=== PATIENT | female | born 1930 | race Caucasian/White ===

== ENCOUNTER 2016-05-01 03:07 | Emergency (ER) | payer MEDICARE ==
[~2016-05-01] VITALS: Ht 147.3 cm; Wt 59.9 kg
--- NOTE | 2016-05-01 04:08 | ED GI ---
General Chief Complaint: Abdominal/GI Problems Stated Complaint: CONSTIPATION Nursing Triage Note: reports not having a BM x 1 week Sepsis Screen: No Definite Risk Source of Information: Patient History of Present Illness Time Seen By Provider: 03:45 Initial Comments PT C/O CONSTIPATION X 1 WEEK THINKS NOW SHE HAS A HEMORRHOID, HAVING RECTAL PRESSURE AND PAIN HAS HISTORY OF CONSTIPATION BUT DOES NOT TAKE ANY MEDICATIONS ON ROUTINE BASIS FOR CONSTIPATION NO HISTORY OF OTHER GI PROBLEMS NO SIGNIFICANT ABDOMINAL PAIN NO NAUSEA/VOMITING NO FEVER NO URINARY PROBLEMS EATING AND DRINKING WELL BUT IS AFRAID TO EAT TOO MUCH DUE TO THIS PROBLEM PT STATES SHE TOOK MIRALAX ONCE A DAY FOR A DAY OR TWO--HAS NOT TAKEN ANY IN 3 DAYS TOOK LACTULOSE ONCE A DAY FOR A DAY OR TWO--ALSO NONE FOR A FEW DAYS TRIED A FLEET'S ENEMA X 1 ON THURSDAY OR THURSDAY DRANK A GLASS OF PRUNE JUICE YESTERDAY HAS NOT TAKEN ANYTHING IN 24 HOURS FOR THIS PROBLEM PCP: DR. ARMSTRONG Allergies and Home Medications Allergies Coded Allergies: No Known Drug Allergies (Verified Allergy, Unknown, 02/24/08) Home Medications Alendronate Sodium 70 Mg Tab 70 MG PO Th@06 (Reported) Aspirin 81 Mg Tabec 81 MG PO DAILY (Reported) Calcium Carbonate/Vitamin D3 1 Each Tablet 1 EACH PO BID (Reported) Cyanocobalamin/Fa/Pyridoxine 1 Tab Tablet 1 TAB PO DAILY (Reported) Ezetimibe 10 Mg Tablet 10 MG PO DAILY (Reported) Gemfibrozil 600 Mg Tablet 1 EACH PO BID (Reported) Levothyroxine Sodium 75 Mcg Tablet 75 MCG PO DAILY (Reported) [place]-3 Fatty Acids/Fish Oil 1 Each Capsule 1 EACH PO BID (Reported) Review of Systems Constitutional: no symptoms reported Respiratory: No Symptoms Reported Cardiovascular: No Symptoms Reported Gastrointestinal: See HPIDenies Abdominal Pain, ConstipatedDenies Diarrhea, Denies Nausea, Denies Poor Appetite, Denies Poor Fluid Intake, Denies Rectal Bleeding, Denies Vomiting Genitourinary: No Symptoms Reported Musculoskeletal: no symptoms reported Skin: no symptoms reported Psychiatric/Neurological: No Symptoms Reported Endocrine: No Symptoms Reported Hematologic/Lymphatic: No Symptoms Reported Past Pnrvkil-Rnvner-Mbopds Hx Patient Social History Alcohol Use: Denies Use Recreational Drug Use: No Smoking Status: Never a Smoker 2nd Hand Smoke Exposure: No Recent Foreign Travel: No Contact w/Someone Who Travel: No Recent Infectious Disease Expo: No Recent Hopitalizations: Yes Surgeries HX Surgeries: Yes (COLONOSCOPY;BILATERAL CARPAL TUNNEL;HERNIA REPAIR; BLADDER SLING; TOE SURGERY; RIGHT CATARACT; LEFT KNEE ; VAGINAL SURGERY; SKIN LESION REMOVALS) Surgeries: Bladder Surgery, Gallbladder, Hysterectomy, Joint Replacement, Orthopedic, Tonsillectomy Respiratory Hx Respiratory Disorders: No Cardiovascular Hx Cardiac Disorders: Yes Cardiac Disorders: Hypertension Neurological Hx Neurological Disorders: No Reproductive System Hx Reproductive Disorders: No Sexually Transmitted Disease: No Genitourinary Hx Genitourinary Disorders: Yes (INCONTINENCE--S/P BLADDER SLING. ) Gastrointestinal Hx Gastrointestinal Disorders: Yes Gastrointestinal Disorders: Chronic Constipation Musculoskeletal Hx Musculoskeletal Disorders: Yes Musculoskeletal Disorders: Arthritis Endocrine Hx Endocrine Disorders: Yes Endocrine Disorders: Hypothyroidsim HEENT HX ENT Disorders: Yes HEENT Disorders: Cataract Cancer Hx Cancer: No Psychosocial Hx Psychiatric Problems: No Integumentary HX Skin/Integumentary Disorder: No Blood Transfusions Hx Blood Disorders: No Physical Exam Vital Signs VS - Last 72 Hours, by Label 05/01/16 03:24 Temp 98.2 Pulse 94 Resp 18 B/P 164/84 Pulse Ox 95 Capillary Refill : Less Than 3 Seconds General Appearance: WD/WN no apparent distress other (SMILING, DOES NOT APPEAR TO BE IN ANY DISCOMFORT) Respiratory: normal breath sounds no respiratory distress no accessory muscle use Cardiovascular: regular rate, rhythm no murmur Gastrointestinal: normal bowel sounds non tender soft no organomegaly no pulsatile massNo distended, No hernia, No mass Rectal: normal rectal tone hemorrhoids (MILDLY INFLAMED EXTERNAL HEMORRHOIDS, FEW INTERNAL HEMORRHOIDS. NO RECTAL MASSES. NO STOOL IN RECTUM. NO SIGNIFICANT TENDERNESS. ) Back: no CVA tenderness other (KYPHOSIS) Neurologic/Psychiatric: rrts II-XII nml as tested no motor/sensory deficits alert normal mood/affect oriented x 3 Skin: normal color warm/dry Progress/Results/Core Measures Results/Orders My Orders Orders-MAGUI MONAHAN DO Abdomen, Flat & Upright/Decub (05/01/16 03:44) Magnesium Citrate Oral Soln (Citrate Of (05/01/16 04:45) Medications Given in ED Current Medications Medications Dose Ordered Sig/Anival Route Start Time Stop Time Status Last Admin Dose Admin Magnesium Citrate 300 ml ONCE ONCE PO 05/01/16 04:45 05/01/16 04:46 DC 05/01/16 04:47 300 ML Vital Signs/I&O Vital Sign - Last 12Hours 05/01/16 03:24 Temp 98.2 Pulse 94 Resp 18 B/P 164/84 Pulse Ox 95 Blood Pressure Mean: 110 Progress Note : Progress Note WILL SEND PT TO FLOOR FOR ENEMAS Diagnostic Imaging Comments ABDOMINAL XRAYS--CONSTIPATION, NON-SPECIFIC BOWEL GAS. GAS PRESENT IN RECTUM. NO ACUTE PROCESS. PENDING RADIOLOGIST REVIEW. Reviewed: Reviewed by Me Departure Impression Impression: Primary Impression: Constipation Disposition: HOME, SELF-CARE Condition: Stable Departure-Patient Inst. Referrals: TORIE ARMSTRONG DO (PCP) Primary Care Physician Patient Instructions: Constipation, Adult (DC) Add. Discharge Instructions: LOTS OF CLEAR LIQUIDS INCREASE YOUR FIBER INTAKE TAKE MIRALAX DAILY FOLLOW UP WITH DR. ARMSTRONG IF SYMPTOMS PERSIST All discharge instructions reviewed with patient and/or family. Voiced understanding. MAGUI MONAHAN DO May 01, 2016 04:08
[2016-05-01] MEDS ORDERED: MAGNESIUM CITRATE 300 ML BTL PO ONE (04:45)
[2016-05-01 05:39] VITALS: BP 154/80
--- NOTE | 2016-05-01 07:10 | Diagnostic Imaging Report ---
INDICATION: Constipation. Supine and upright views of the abdomen are obtained. FINDINGS: There is moderate amount of stool throughout the colon. Mild gaseous distention is seen in several small bowel loops. There is no evidence of free intraperitoneal gas or pneumatosis. There is no evidence of bowel transition point to indicate a site of obstruction. No pathologic abdominal calcification is appreciated. IMPRESSION: Findings are consistent with constipation. No bowel obstruction is identified. Dictated by: Dictated on workstation # [id number]
== END 2016-05-01 05:48 | disposition home or self-care (01) ==
LOC: EDUNIT# 03:07 → ER 03:12
DX: K59.00 Constipation, unspecified (principal); I10 Essential (primary) hypertension; Z79.82 Long term (current) use of aspirin; Z79.899 Other long term (current) drug therapy
CPT/HCPCS: 74020; 99212; 99282

== ENCOUNTER → 2016-05-01 | Outpatient (CLI) | payer MEDICARE ==
[~2016-05-01] VITALS: Ht 147.3 cm; Wt 62.3 kg
[~2016-05-01] MED LIST: ALN70T PO; ASP81TEC PO; CALC-78 PO; CYAN1TAB13 PO; EZET10TA5 PO; FISH OIL 1,2001 EAC1 PO; GEMF600T3 PO; LEVO75TA58 PO
[2016-05-01 08:44] VITALS: BP 130/58
--- NOTE | 2016-05-12 10:47 | Physician Query-Final Dx ---
REYNA SEQUEIRA 05/12/16 1047: Clinic Account Progress/Dx Physician Query: Please give a diagnosis for the soap suds enema treatment thank you Date of Service May 01, 2016 at 05:43 MAGUI MONAHAN DO 05/13/16 0553: Clinic Account Progress/Dx DIAGNOSIS: Diagnosis constipation REYNA SEQUEIRA May 12, 2016 10:47 MAGUI MONAHAN DO May 13, 2016 05:53
== END ==
LOC: 4THo 05:43
PROVIDERS: ATTEND Emergency Medicine
DX: K59.00 Constipation, unspecified (principal)
CPT/HCPCS: 99212

== ENCOUNTER → 2016-06-19 | Outpatient (CLI) | payer MEDICARE ==
--- NOTE | 2016-06-19 17:58 | Diagnostic Imaging Report ---
PROCEDURE: US Carotid Duplex Bilateral. TECHNIQUE: Multiple real-time grayscale images were obtained over the carotid arteries in various projections bilaterally. Additional duplex Doppler and color Doppler images were also obtained. INDICATION: Carotid stenosis. FINDINGS: Grayscale images demonstrate calcified plaque at the carotid bifurcation bilaterally. Color Doppler demonstrates patency of the common, internal and external carotid arteries on both sides. There is antegrade flow seen in the vertebral arteries. Peak systolic velocities on the right side are 135 cm/s, 83 cm/s and 86 cm/s and on the left 96 cm/s, 104 cm/s and 69 cm/s. ICA/CCA ratios are up to 2.2 on the right side and up to 1.1 on the left. IMPRESSION: There is mildly increased flow velocity in the proximal right ICA with suggestion of underlying stenosis in the range of 50-69%. Estimated underlying stenosis in the left ICA is less than 50%. Dictated by: Dictated on workstation # [id number]
--- NOTE | 2016-06-20 08:21 | Diagnostic Imaging Report ---
Bilateral screening mammogram The current study was also evaluated with a Computer Aided Detection (CAD) system. Indication: Screening. No current complaints stated on the questionnaire. COMPARISON: 06/18/15. FINDINGS: The breasts are composed of scattered fibroglandular densities. There are occasional punctate calcifications seen. Allowing for technique and positional differences, no suspicious change is seen. IMPRESSION: No significant change. ACR BI-RADS Category 2: Benign findings. Result letter will be mailed to the patient. Note: At least 10% of breast cancer is not imaged by mammography. Dictated by: Dictated on workstation # [id number]
== END ==
LOC: RAD 13:07
PROVIDERS: ATTEND Internal Medicine
DX: Z12.31 Encounter for screening mammogram for malignant neoplasm of breast (principal); I65.23 Occlusion and stenosis of bilateral carotid arteries
CPT/HCPCS: 77067; 93880

== ENCOUNTER → 2016-12-30 | Outpatient (CLI) | payer MEDICARE ==
--- NOTE | 2016-12-30 19:13 | Diagnostic Imaging Report ---
PROCEDURE: US Carotid Duplex Bilateral. TECHNIQUE: Multiple real-time grayscale images were obtained over the carotid arteries in various projections bilaterally. Additional duplex Doppler and color Doppler images were also obtained. INDICATION: Carotid artery stenosis. FINDINGS: Grayscale images demonstrate multifocal calcified plaque in the common and internal carotid arteries bilaterally. Color flow demonstrates patency of the common, internal and external carotid arteries. There is shadowing from a calcified plaque limiting evaluation of a very short segment within the proximal right ICA. There is antegrade flow in the vertebral arteries bilaterally. Peak systolic velocities in the right ICA are 104, 97, and 100 cm/s from proximal to distal and on the left side 70, 86, and 168 cm/s. ICA/CCA ratios are up to 1.5 on the right side and 2.2 on the left side. IMPRESSION: There is multifocal calcified plaque seen in the common and internal carotid arteries on both sides more prominent on the left. There is moderate increased velocity in the distal left internal carotid artery. This is in favor of underlying stenosis in the range of 50-69% on the left. The right side demonstrates no significantly increased velocities with estimated underlying stenosis less than 50%. Dictated by: Dictated on workstation # [id number]
== END ==
LOC: RAD 13:31
PROVIDERS: ATTEND Internal Medicine
DX: I65.23 Occlusion and stenosis of bilateral carotid arteries (principal)
CPT/HCPCS: 93880

== ENCOUNTER 2017-02-28 03:17 | Emergency (ER) | payer MEDICARE ==
[~2017-02-28] VITALS: Ht 147.3 cm; Wt 57.2 kg
--- OUTSIDE RECORDS SUMMARY | 2017-02-28 03:25 | XMS REPORT | Clinical Summary ---
Author Author User, JEFFERSON Organization [facility] [place] Address Unknown Phone Unavailable Allergies, Adverse Reactions, Alerts Allergy Name Reaction Description Start Date Severity Status Provider LIPITOR myalgias Critical Active Cassidy Del Rosario LOPID elevated liver Critical Active Cassidy Del Rosario ZETIA myalgias Critical Active Cassidy Del Rosario Conditions or Problems Problem Name Problem Code Onset Date Status Entry Date Provider Comment Standard Description Annotate HYPERCHOLESTEROLEMIA 272.0 Active Cassidy Del Rosario Pure hypercholesterolemia HYPERTRIGLYCERIDEMIA 272.1 Active Cassidy Del Rosario Pure hyperglyceridemia ACTINIC KERATOSIS 702.0 Resolved Cassidy Del Rosario Actinic keratosis nose OSTEOARTHRITIS 715.90 Active Cassidy Del Rosario Osteoarthrosis, unspecified whether generalized or localized, involving unspecified site OSTEOPOROSIS, GENERALIZED 733.00 Resolved Cassidy Del Rosario Osteoporosis, unspecified HYPOTHYROIDISM 244.9 Active Cassidy Del Rosario Unspecified hypothyroidism CONSTIPATION, CHRONIC 564.09 Resolved Cassidy Del Rosario Other constipation SINUSITIS, ACUTE 461.9 Resolved Cassidy Del Rosario Acute sinusitis, unspecified DERMATITIS 692.9 Resolved Cassidy Del Rosario Contact dermatitis and other eczema, unspecified cause nose and upper lip SEBORRHEIC KERATOSIS, INFLAMED 702.11 Resolved Cassidy Del Rosario Inflamed seborrheic keratosis HYPERGLYCEMIA, MILD 790.6 Resolved Cassidy Del Rosario Other abnormal blood chemistry INTERTRIGO, CANDIDAL 695.89 Resolved Cassidy Del Rosario Other specified erythematous conditions FREQUENCY, URINARY 788.41 Refinement Cassidy Del Rosario Urinary frequency UTI 599.0 Resolved Cassidy Del Rosario Urinary tract infection, site not specified SCREENING MAMMOGRAM NEC V76.12 Resolved Cassidy Del Rosario Other screening mammogram SINUS CONGESTION, CHRONIC 478.1 Resolved Cassidy Del Rosario Other diseases of nasal cavity and sinuses SINUSITIS 473.9 Resolved Cassidy Del Rosario Unspecified sinusitis (chronic) HYPERGLYCEMIA, MILD 790.6 Resolved Cassidy Del Rosario Other abnormal blood chemistry VACCINE AGAINST STREPTOCOCCUS PNEUMONIAE V03.82 Resolved Cassidy Del Rosario Need for prophylactic vaccination against Streptococcus pneumoniae [pneumococcus] BICEPS TENDON RUPTURE, RIGHT 727.62 Resolved Cassidy Del Rosario Nontraumatic rupture of tendons of biceps (long head) VACCINE AGAINST TETANUS-DIPHTHERIA [TD][DT] V06.5 Resolved 07/27 Cassidy Del Rosario Need for prophylactic vaccination and inoculation against Tetanus-diptheria [Td] [DT] DIABETES MELLITUS, NONINSULIN DEPENDENT (NIDDM) 250.00 Active Cassidy Del Rosario Diabetes mellitus without mention of complication, type II or unspecified type, not stated as uncontrolled URI 465.9 Resolved Cassidy Del Rosario Acute upper respiratory infections of unspecified site OSTEOPOROSIS NEC 733.09 Active Cassidy Del Rosario Other osteoporosis BOWEL OBSTRUCTION 560.9 Resolved Cassidy Del Rosario Unspecified intestinal obstruction CAROTID ARTERY STENOSIS, BILATERAL 433.10 Resolved Cassidy Del Rosario Occlusion and stenosis of carotid artery, without mention of cerebral infarction HYPERTENSION 401.1 Active Cassidy Del Rosario Benign essential hypertension ABDOMINAL PAIN, ACUTE 789.00 Resolved Cassidy Del Rosario Abdominal pain, unspecified site TRANSAMINASES, SERUM, ELEVATED 790.4 Resolved Cassidy Del Rosario Nonspecific elevation of levels of transaminase or lactic acid dehydrogenase [LDH] BILIRUBINURIA 791.4 Resolved Cassidy Del Rosario Biliuria GAMMA GLUTAMYL TRANSFERASE, SERUM, ELEVATED 790.5 Resolved 07/27 Cassidy Del Rosario Other nonspecific abnormal serum enzyme levels ANKLE PAIN, RIGHT 719.47 Resolved Cassidy Del Rosario Pain in joint involving ankle and foot FREQUENCY, URINARY 788.41 Resolved Cassidy Del Rosario Urinary frequency KNEE PAIN 719.46 Active Cassidy Del Rosario Pain in joint involving lower leg EDEMA LEG 782.3 Resolved Cassidy Del Rosario Edema NEOPLASM, SKIN, UNCERTAIN BEHAVIOR 238.2 Resolved Cassidy Del Rosario Neoplasm of uncertain behavior of skin TORTICOLLIS 723.5 Resolved Cassidy Del Rosario Torticollis, unspecified CANDIDIASIS OF UNSPECIFIED SITE 112.9 Resolved Cassidy Del Rosario Candidiasis of unspecified site CARPAL TUNNEL SYNDROME, BILATERAL 354.0 Active Cassidy Del Rosario Carpal tunnel syndrome Medication List Medication Instructions Start Date Stop Date Generic Name NDC Status Provider Patient Instruction CHRISTINA 180 MG TABS 1 PO BID FEXOFENADINE HCL No Longer Active Cassidy Del Rosario DIFLUCAN 100 MG TAB 1 PO daily FLUCONAZOLE 44953918002 No Longer Active Cassidy Del Rosario NYSTATIN 728410 UNIT/GM POWD apply over the Nystatin cream BID NYSTATIN 28145690972 No Longer Active Cassidywendy Del Rosario NYSTATIN 036086 UNIT/GM CREA apply to affected areas BID for 7 days NYSTATIN 42862006305 No Longer Active Cassidy Del Rosario ATROVENT 0.06 % SOLN 2 puffs each nostril QID PRN IPRATROPIUM BROMIDE 92296107481 No Longer Active Jennifer Crawford FISH OIL 1000 MG CAPS 1 PO daily OMEGA-3 FATTY ACIDS 79060208352 Active Cassidywendy Del Rosario CONSTULOSE 10 GM/15ML SOLN 10cc PO TID prn constipation LACTULOSE 79385194861 No Longer Active Cassidy Del Rosario PYRIDIUM 200 MG TAB 1 PO TID prn urinary urgency PHENAZOPYRIDINE HCL 12314304461 No Longer Active Jennifer Crawford LEVAQUIN 500 MG TAB 1 PO QD LEVOFLOXACIN 92105666837 No Longer Active Jennifer Crawford ZETIA 10 MG TABS 1 PO daily for cholesterol. EZETIMIBE 10897535350 No Longer Active Cassidy Del Rosario PYRIDIUM 200 MG TAB 1 PO TID prn urinary urgency PHENAZOPYRIDINE HCL 88130475045 No Longer Active Jennifer Crawford LEVAQUIN 500 MG TAB 1 PO QD x 5 days LEVOFLOXACIN 14054768692 No Longer Active Jennifer Crawford FOSAMAX 70 MG TABS 1 PO daily ALENDRONATE SODIUM 63626960906 No Longer Active Cassidy Del Rosario GEMFIBROZIL 600 MG TABS 1 po bid GEMFIBROZIL 94470371516 No Longer Active Jennifer Crawford CARAFATE 1 GM TABS 1 PO 30 minutes before meals and at bedtime SUCRALFATE 38140476770 No Longer Active Cassidy Del Rosario OMEPRAZOLE 20 MG CPDR 1 PO BID OMEPRAZOLE 57519077474 No Longer Active Cassidy Candie Del Rosario COZAAR 50 MG TAB 1 PO daily LOSARTAN POTASSIUM 70931953869 Active Jennifer Crawford NORVASC 5 MG TAB 1 PO QD AMLODIPINE BESYLATE 33637979086 Active Jennifer Crawford CYCLOBENZAPRINE HCL 5 MG TABS 1 po BID PRN CYCLOBENZAPRINE HCL 01700399373 No Longer Active Cassidy Del Rosario FISH OIL CONCENTRATE 1000 MG CAPS OMEGA-3 FATTY ACIDS 03769550000 No Longer Active Cassidywendy Del Rosario PYRIDIUM 200 MG TAB 1 PO TID prn urinary urgency PHENAZOPYRIDINE HCL 50535195437 No Longer Active Jennifer Crawford CIPRO 250 MG TABS 1 PO BID CIPROFLOXACIN HCL 60727476052 No Longer Active Jennifer Crawford KENALOG 0.1 % CREA Apply to affected area BID for 10 days and keep covered TRIAMCINOLONE ACETONIDE 04334627284 No Longer Active Cassidywendy Del Rosario CHRISTINA 180 MG TABS 1 PO QD FEXOFENADINE HCL 29178368572 No Longer Active Cassidywendy Del Rosario CALTRATE 600 PLUS-VIT D 600-200 MG-IU TABS 1 PO BID CALCIUM-VITAMIN D 59871298510 Active Cassidywendy Del Rosario ZOSTAVAX 06329 UNT/0.65ML SOLR 1 injection once ZOSTER VACCINE LIVE 65943852824 No Longer Active Cassidywendy Del Rosario BIAXIN XL PAC 500 MG TB24 2 pills at same time daily for 7 days CLARITHROMYCIN 99392144241 No Longer Active Cassidywendy Del Rosario AMOXICILLIN 500 MG CAP 1 PO TID AMOXICILLIN 78573473911 No Longer Active Cassidy Del Rosario PYRIDIUM 200 MG TABS I PO TID for 2 days PHENAZOPYRIDINE HCL 00068773181 No Longer Active Cassidy BRAVO NASAL SPRAY (DEXAMETHASONE, GENTAMICIN, SALINE) 2 puffs each nostril TID DR. BRAVO NASAL SPRAY (DEXAMETHASONE, GENTAMICIN, SALINE) No Longer Active Cassidy Del Rosario AUGMENTIN 500-125 MG TAB 1 PO BID AMOXICILLIN-POT CLAVULANATE 33052744199 No Longer Active Cassidy Del Rosario CIPRO 250 MG TABS 1 po BID x 7 days CIPROFLOXACIN HCL 33982120898 No Longer Active Jennifer Crawford MICONAZOLE NITRATE POWD apply to affected areas TID for 7 days MICONAZOLE NITRATE 50531555204 No Longer Active Cassidy Del Rosario NYSTATIN 948743 UNIT/GM CREA apply to affected areas BID for 7 days NYSTATIN 08118369050 No Longer Active Cassidy Del Rosario ZITHROMAX Z-KOJO 250 MG TABS as directed AZITHROMYCIN 16000333400 No Longer Active Cassidy BRAVO NASAL SPRAY (DEXAMETHASONE, GENTAMICIN, SALINE) 2 puffs each nostril BID DR. BRAVO NASAL SPRAY (DEXAMETHASONE, GENTAMICIN, SALINE) No Longer Active Cassidy Del Rosario CHLORPHENIRAMINE MALEATE 4 MG TABS 1 PO Q6hrs prn for cold 03/25 CHLORPHENIRAMINE MALEATE 32429666663 No Longer Active Desmond Hackett FOLTX 2.5-25-2 MG TABS 1 PO QD FOLIC ACID-VIT B6-VIT B12 70767037754 Active Jennifer Crawford CALCIUM 500 MG TABS 1 PO BID CALCIUM 26682696010 No Longer Active Cassidy Del Rosario FULTEX 1 PO QD FULTEX No Longer Active Cassidy Del Rosario [id number] 0.35-17979-8.1 OINT Apply to affected areas BID for 10 days TUEUJYSW-[id number] 46585981269 No Longer Active Cassidy Del Rosario FOSAMAX 70 MG TABS 1 tab 1x wkly ALENDRONATE SODIUM 47509622206 No Longer Active Cassidy Del Rosario STOOL SOFTENER 100 MG CAPS prn DOCUSATE SODIUM 17439711736 No Longer Active Cassidy MATHIS'Steven NASAL SPRAY (DEXAMETHASONE, GENTAMICIN, SALINE) 2 puffs TID 05/13 DR. MATHIS'Steven NASAL SPRAY (DEXAMETHASONE, GENTAMICIN, SALINE) No Longer Active Cassidy Del Rosario ZITHROMAX Z-KOJO 250 MG TABS as directed AZITHROMYCIN 31234229402 No Longer Active Cassidy Del Rosario ZITHROMAX Z-KOJO 250 MG TABS 2 the first day, then 1 x 4 days 2003 AZITHROMYCIN 53598401142 No Longer Active Cassidy Del Rosario AMOS LOW STRENGTH 81 MG TBEC 1 po daily ASPIRIN 51472112897 Active Cassidy Del Rosario LEVOXYL 75 MCG TABS 1 po daily LEVOTHYROXINE SODIUM 19849344945 Active Ghanshyam Taylor Immunizations Vaccine Administration Date Value Standard Description Influenza vaccine given Done influenza virus vaccine, unspecified formulation Influenza vaccine given done influenza virus vaccine, unspecified formulation Influenza vaccine given Done influenza virus vaccine, unspecified formulation pneumococcal immunization administered 2nd dose completed pneumococcal polysaccharide vaccine, 23 valent dT (Diphtheria and Tetanus) booster given Dr. Del Rosario Td(adult) unspecified formulation Comvax, combined Hemophilus influenza B and Hepatitis B virus vaccine Dash's Haemophilus influenzae type b conjugate and Hepatitis B vaccine Comvax, combined Hemophilus influenza B and Hepatitis B virus vaccine Dillons administered Haemophilus influenzae type b conjugate and Hepatitis B vaccine Vital Signs Date Name Value Unit Range Description blood pressure, diastolic - 8462-4 60 mm[Hg] BP curry blood pressure, systolic - 8480-6 140 mm[Hg] BP sys pulse rate E&M - 8867-4 66 /min Heart rate respiratory rate E&M - 9279-1 14 /min Resp rate weight E&M - 3141-9 131 [lb_av] Weight Measured blood pressure, diastolic - 8462-4 72 mm[Hg] BP curry blood pressure, systolic - 8480-6 138 mm[Hg] BP sys pulse rate E&M - 8867-4 84 /min Heart rate respiratory rate E&M - 9279-1 14 /min Resp rate weight E&M - 3141-9 130 [lb_av] Weight Measured blood pressure, diastolic - 8462-4 62 mm[Hg] BP curry blood pressure, systolic - 8480-6 138 mm[Hg] BP sys pulse rate E&M - 8867-4 80 /min Heart rate respiratory rate E&M - 9279-1 14 /min Resp rate weight E&M - 3141-9 127 [lb_av] Weight Measured blood pressure, diastolic - 8462-4 74 mm[Hg] BP curry blood pressure, systolic - 8480-6 136 mm[Hg] BP sys pulse rate E&M - 8867-4 88 /min Heart rate respiratory rate E&M - 9279-1 14 /min Resp rate temperature E&M 98.6 [degF] Body temperature weight E&M - 3141-9 130 [lb_av] Weight Measured blood pressure, diastolic - 8462-4 62 mm[Hg] BP curry blood pressure, systolic - 8480-6 134 mm[Hg] BP sys pulse rate E&M - 8867-4 68 /min Heart rate respiratory rate E&M - 9279-1 14 /min Resp rate weight E&M - 3141-9 129 [lb_av] Weight Measured Diagnostic Results Date Name Value Unit Range Description Clinical Lists Update: CMP,FLP,TSH,Free T4,HgA1c - Chemistry Estimated Glomerular Filtration Rate (calc) 65 mL/min/1.73m2 albumin, serum 4.0 g/dL cholesterol/HDL ratio, serum, percent 4.9 anion gap, serum 9 sodium, serum 137 mmol/L triglyceride, serum, fasting 122 mg/dL bilirubin, serum, total 0.8 mg/dL alanine aminotransferase (SGPT), serum 18 U/L aspartate aminotransferase (SGOT), serum 18 U/L protein, total, serum 6.9 g/dL potassium, serum 4.1 mmol/L LDL cholesterol, serum 212 mg/dL thyroid stimulating hormone, serum 2.45 u[iU]/mL hemoglobin A1C, blood, as % of total hemoglobin 5.8 % HDL cholesterol, serum 60.0 mg/dL thyroxine, serum, free 0.89 ng/dL creatinine, serum 0.9 mg/dL carbon dioxide, venous blood 29.0 mmol/L cholesterol, serum 296 mg/dL chloride, serum 103 mmol/L calcium, serum 9.2 mg/dL urea nitrogen, blood 23 mg/dL alkaline phosphatase, serum 57 U/L glucose, plasma fasting 100 mg/dL Clinical Lists Update: CMP,FLP,TSH,Free T4,HgA1c,Microalbumin - Chemistry Estimated Glomerular Filtration Rate (calc) 81 mL/min/1.73m2 glucose, plasma fasting 90 mg/dL cholesterol/HDL ratio, serum, percent 4.6 anion gap, serum 10 sodium, serum 141 mmol/L triglyceride, serum, fasting 104 mg/dL bilirubin, serum, total 0.9 mg/dL alanine aminotransferase (SGPT), serum 18 U/L aspartate aminotransferase (SGOT), serum 18 U/L protein, total, serum 6.3 g/dL potassium, serum 4.2 mmol/L LDL cholesterol, serum 188 mg/dL thyroid stimulating hormone, serum 0.83 u[iU]/mL hemoglobin A1C, blood, as % of total hemoglobin 5.9 % HDL cholesterol, serum 58.0 mg/dL thyroxine, serum, free 0.97 ng/dL creatinine, serum 0.7 mg/dL carbon dioxide, venous blood 27.0 mmol/L cholesterol, serum 267 mg/dL chloride, serum 108 mmol/L calcium, serum 8.8 mg/dL urea nitrogen, blood 16 mg/dL alkaline phosphatase, serum 46 U/L albumin, serum 3.8 g/dL Clinical Lists Update: CMP,FLP,TSH,Free T4,HgA1c,Microalbumin - Urinalysis microalbumin, urine, semiquantitative 0.6 mg/dL Office Visit: Dr Del Rosario's Check Up: Established Patient Visit - Chemistry anion gap, serum 12 sodium, serum 139 mmol/L bilirubin, serum, total 0.7 mg/dL alanine aminotransferase (SGPT), serum 18 U/L aspartate aminotransferase (SGOT), serum 17 U/L protein, total, serum 6.2 g/dL potassium, serum 3.7 mmol/L creatinine, serum 0.7 mg/dL carbon dioxide, venous blood 28.0 mmol/L chloride, serum 103 mmol/L calcium, serum 9.0 mg/dL urea nitrogen, blood 17 mg/dL alkaline phosphatase, serum 45 U/L albumin, serum 3.6 g/dL Estimated Glomerular Filtration Rate (calc) 80 mL/min/1.73m2 glucose, plasma fasting 162 mg/dL Office Visit: Dr Del Rosario's Check Up: Established Patient Visit - Hematology mean corpuscular volume, RBC 96 fL leukocyte count, blood 8.0 10*3/mm3 erythrocyte (RBC) count 3.90 10*6/mm3 platelet count 203 10*3/mm3 hemoglobin, blood 11.9 g/dL hematocrit, blood 37 % erythrocyte sedimentation rate 58 mm/h red blood cell distribution width 13.8 % Encounters Code Encounter Date Provider Facility CPT-61266 Ofc Vst, Est Level IV 13:31:32 [employer] Cassidy Del Rosario DO, FACP CPT-52028 Ofc Vst, Est Level III 12:51:00 CDT Cassidy Del Rosario DO, FACP CPT-21700 Ofc Vst, Est Level III 17:19:08 CDT Cassidy Del Rosario DO, FACP CPT-79962 Ofc Vst, Est Level III 10:22:49 CDT Cassidy Del Rosario DO, FACP CPT-96566 Ofc Vst, Est Level III 19:43:57 [employer] Cassidy Del Rosario DO, FACP CPT-43744 Ofc Vst, Est Level III 14:03:12 [employer] Cassidy Del Rosario DO, FACP CPT-90426 Ofc Vst, Est Level IV 13:10:01 [employer] Cassidy Harris Carin, DO, FACP CPT-66461 Ofc Vst, Est Level III 09:21:13 [employer] Cassidy Harris Carin, DO, FACP CPT-96651 Ofc Vst, Est Level IV 10:39:52 CDT Cassidy Candie Harris Carin, DO, FACP CPT-36754 Ofc Vst, Est Level III 15:20:46 CDT Cassidy Candie Harris Carin, DO, FACP CPT-05954 Ofc Vst, Est Level III 11:02:59 CDT Cassidy Candie Harris Carin, DO, FACP CPT-22106 Ofc Vst, Est Level IV 10:39:40 CDT Cassidy Candie Harris Carin, DO, FACP CPT-61425 Ofc Vst, Est Level IV 10:37:24 CDT Cassidywendy Harris Carin, DO, FACP CPT-58233 Ofc Vst, Est Level IV 10:32:51 CDT Cassidywendy Harris Carin, DO, FACP CPT-32555 Ofc Vst, Est Level IV 12:53:45 CDT Cassidywendy Harris Carin, DO, FACP CPT-89030 Ofc Vst, Est Level V 15:47:50 CDT Cassidywendy Del Rosario [facility] CPT-44689 Ofc Vst, Est Level IV 09:46:59 [employer] Cassidy Candie Harris Carin, DO, FACP CPT-21351 Ofc Vst, Est Level IV 11:28:13 CDT Cassidy Candie Harris Carin, DO, FACP CPT-00523 Ofc Vst, Est Level IV 09:26:22 [employer] Cassidy Candie Harris Carin, DO, FACP CPT-96772 Ofc Vst, Est Level IV 09:58:11 CDT Cassidy Candie Carin Cassidy Steven Carin, DO, FACP CPT-94982 Ofc Vst, Est Level IV 10:04:29 CDT Cassidy Candie Carin Benjamin Steven Carin, DO, FACP CPT-58788 Ofc Vst, Est Level III 17:37:38 [employer] Cassidywendy Schreiber Del Rosario Cassidy Steven Carin, DO, FACP CPT-44408 Ofc Vst, Est Level IV 10:00:32 [employer] Cassidy Candie Carin Del [place], DO, FACP CPT-75078 Ofc Vst, Est Level III 16:35:26 CDT Cassidywendy [place] Carin Del Rosario, DO, FACP CPT-02806 Ofc Vst, Est Level IV 09:32:36 CDT Cassidy Candie Carin Benjamin Steven Carin, DO, FACP CPT-71054 Ofc Vst, Est Level IV 10:53:32 CDT Cassidy Candie Carin Del [place], DO, FACP CPT-75559 Ofc Vst, Est Level IV 10:01:21 CDT Cassidy Del Rosario [facility] [place] CPT-12218 Ofc Vst, Est Level IV 11:19:41 CDT Cassidy Del Rosario [facility] [place] CPT-01479 Ofc Vst, Est Level IV 14:42:04 [employer] Cassidy Del Rosario [facility] [place] CPT-43621 Ofc Vst, Est Level III 11:37:20 CDT Cassidy Del Rosario [facility] [place] CPT-89598 Ofc Vst, Est Level III 09:49:36 [employer] Cassidy Del Rosario [facility] [place] CPT-53440 Ofc Vst, Est Level IV 09:45:40 [employer] Cassidy Del Rosario [facility] [place] CPT-79537 Ofc Vst, Est Level IV 14:04:02 CDT [facility] Canide Prabhakarner [facility] [place] CPT-08180 Ofc Vst, Est Level III 17:26:04 [employer] Cassidy Candie Prabhakarner [facility] [place] CPT-84755 Ofc Vst, Est Level IV 13:17:46 [employer] Cassidy Candie Prabhakarner [facility] [place] CPT-20992 Ofc Vst, Est Level III 12:34:19 CDT [facility] Candie Prabhakarner [facility] [place] CPT-44166 Ofc Vst, Est Level III 13:27:53 CDT [facility] Candie Del Rosario [facility] [place] Procedures Code Procedure Name Date Entry Date Standard Description CPT-G0439 Medicare Annual Wellness Visit 21:16:15 CDT CPT-G8443 E-Prescribing Medication Sent 19:43:57 [employer] CPT-G8445 E-Prescribing Not sent due to no medication given 12:16: 14 CDT CPT-G0439 Medicare Annual Wellness Visit 12:16:14 CDT CPT-G8445 E-Prescribing Not sent due to no medication given 14:03: 12 [employer] CPT-G8445 E-Prescribing Not sent due to no medication given 13:10: 01 [employer] CPT-G8443 E-Prescribing Medication Sent 09:21:13 [employer] CPT-24425 Tetanus vaccine, adsorbed, intramuscular 10:53:32 CDT CPT-75061 Injection, Pneumovax 10:53:32 CDT CPT-05589 Administration of 1st dose vaccine 10:53:32 CDT CPT-87573 Cryopathy Skin 14:04:02 CDT
--- OUTSIDE RECORDS SUMMARY | 2017-02-28 03:26 | XMS REPORT | Clinical Summary ---
Author Author User, JEFFERSON Organization [facility] [place] Address Unknown Phone Unavailable Allergies, Adverse Reactions, [...] Del Rosario Urinary frequency KNEE PAIN 719.46 Resolved Cassidy Del Rosario Pain in joint involving lower leg EDEMA LEG 782.3 Resolved Cassidy Del Rosario Edema NEOPLASM, SKIN, UNCERTAIN BEHAVIOR 238.2 Resolved Cassidy Del Rosario Neoplasm of uncertain behavior of skin TORTICOLLIS 723.5 Resolved Cassidy Del Rosario Torticollis, unspecified CANDIDIASIS OF UNSPECIFIED SITE 112.9 Resolved Cassidy Del Rosario Candidiasis of unspecified site CARPAL TUNNEL SYNDROME, BILATERAL 354.0 Resolved Cassidy Del Rosario Carpal tunnel syndrome Medication List Medication Instructions Start Date Stop Date Generic Name NDC Status Provider Patient Instruction CHRISTINA 180 MG TABS 1 PO BID FEXOFENADINE HCL No Longer Active Cassidy Del Rosario DIFLUCAN 100 MG TAB 1 PO daily FLUCONAZOLE 87720503758 No Longer Active Cassidy Del Rosario NYSTATIN 279506 UNIT/GM POWD apply over the Nystatin cream BID NYSTATIN 49886641441 No Longer Active Cassidywendy Del Rosario NYSTATIN 132790 UNIT/GM CREA apply to affected areas BID for 7 days NYSTATIN 38930242628 No Longer Active Cassidy Del Rosario ATROVENT 0.06 % SOLN 2 puffs each nostril QID PRN IPRATROPIUM BROMIDE 50047263265 No Longer Active Jennifer Crawford FISH OIL 1000 MG CAPS 1 PO daily OMEGA-3 FATTY ACIDS 36719003830 Active Cassidywendy Del Rosario CONSTULOSE 10 GM/15ML SOLN 10cc PO TID prn constipation LACTULOSE 52190967100 No Longer Active Cassidy Del Rosario PYRIDIUM 200 MG TAB 1 PO TID prn urinary urgency PHENAZOPYRIDINE HCL 98986356072 No Longer Active Jennifer Crawford LEVAQUIN 500 MG TAB 1 PO QD LEVOFLOXACIN 09582109030 No Longer Active Jennifer Crawford ZETIA 10 MG TABS 1 PO daily for cholesterol. EZETIMIBE 06482103396 No Longer Active Cassidy Del Rosario PYRIDIUM 200 MG TAB 1 PO TID prn urinary urgency PHENAZOPYRIDINE HCL 96445146122 No Longer Active Jennifer Crawford LEVAQUIN 500 MG TAB 1 PO QD x 5 days LEVOFLOXACIN 75937061992 No Longer Active Jennifer Crawford FOSAMAX 70 MG TABS 1 PO daily ALENDRONATE SODIUM 29449202490 No Longer Active Cassidy Del Rosario GEMFIBROZIL 600 MG TABS 1 po bid GEMFIBROZIL 70857725096 No Longer Active Jennifer Crawford CARAFATE 1 GM TABS 1 PO 30 minutes before meals and at bedtime SUCRALFATE 36706310470 No Longer Active Cassidy Del Rosario OMEPRAZOLE 20 MG CPDR 1 PO BID OMEPRAZOLE 15601451209 No Longer Active Cassidy Candie Del Rosario COZAAR 50 MG TAB 1 PO daily LOSARTAN POTASSIUM 72365037578 Active Jennifer Crawford NORVASC 5 MG TAB 1 PO QD AMLODIPINE BESYLATE 35799381121 Active Jennifer Crawford CYCLOBENZAPRINE HCL 5 MG TABS 1 po BID PRN CYCLOBENZAPRINE HCL 89064038743 No Longer Active Cassidy Del Rosario FISH OIL CONCENTRATE 1000 MG CAPS OMEGA-3 FATTY ACIDS 13781375747 No Longer Active Cassidywendy Del Rosario PYRIDIUM 200 MG TAB 1 PO TID prn urinary urgency PHENAZOPYRIDINE HCL 94239132891 No Longer Active Jennifer Crawford CIPRO 250 MG TABS 1 PO BID CIPROFLOXACIN HCL 70224193475 No Longer Active Jennifer Crawford KENALOG 0.1 % CREA Apply to affected area BID for 10 days and keep covered TRIAMCINOLONE ACETONIDE 80711378152 No Longer Active Cassidywendy Del Rosario CHRISTINA 180 MG TABS 1 PO QD FEXOFENADINE HCL 40266180839 No Longer Active Cassidywendy Del Rosario CALTRATE 600 PLUS-VIT D 600-200 MG-IU TABS 1 PO BID CALCIUM-VITAMIN D 04238101367 Active Cassidywendy Del Rosario ZOSTAVAX 98558 UNT/0.65ML SOLR 1 injection once ZOSTER VACCINE LIVE 22992083207 No Longer Active Cassidywendy Del Rosario BIAXIN XL PAC 500 MG TB24 2 pills at same time daily for 7 days CLARITHROMYCIN 78650208843 No Longer Active Cassidywendy Del Rosario AMOXICILLIN 500 MG CAP 1 PO TID AMOXICILLIN 94250134879 No Longer Active Cassidy Del Rosario PYRIDIUM 200 MG TABS I PO TID for 2 days PHENAZOPYRIDINE HCL 76626228807 No Longer Active Cassidy BRAVO NASAL SPRAY (DEXAMETHASONE, GENTAMICIN, SALINE) 2 puffs each nostril TID DR. BRAVO NASAL SPRAY (DEXAMETHASONE, GENTAMICIN, SALINE) No Longer Active Cassidy Del Rosario AUGMENTIN 500-125 MG TAB 1 PO BID AMOXICILLIN-POT CLAVULANATE 26816393752 No Longer Active Cassidy Del Rosario CIPRO 250 MG TABS 1 po BID x 7 days CIPROFLOXACIN HCL 50962065689 No Longer Active Jennifer Crawford MICONAZOLE NITRATE POWD apply to affected areas TID for 7 days MICONAZOLE NITRATE 39536751054 No Longer Active Cassidy Del Rosario NYSTATIN 626550 UNIT/GM CREA apply to affected areas BID for 7 days NYSTATIN 11835102807 No Longer Active Cassidy Del Rosario ZITHROMAX Z-KOJO 250 MG TABS as directed AZITHROMYCIN 89544322772 No Longer Active Cassidy BRAVO NASAL SPRAY (DEXAMETHASONE, GENTAMICIN, SALINE) 2 puffs each nostril BID DR. BRAVO NASAL SPRAY (DEXAMETHASONE, GENTAMICIN, SALINE) No Longer Active Cassidy Del Rosario CHLORPHENIRAMINE MALEATE 4 MG TABS 1 PO Q6hrs prn for cold 03/25 CHLORPHENIRAMINE MALEATE 46305022254 No Longer Active Desmond Hackett FOLTX 2.5-25-2 MG TABS 1 PO QD FOLIC ACID-VIT B6-VIT B12 22707207693 Active Jennifer Crawford CALCIUM 500 MG TABS 1 PO BID CALCIUM 12955000378 No Longer Active Cassidy Del Rosario FULTEX 1 PO QD FULTEX No Longer Active Cassidy Del Rosario [id number] 0.35-69321-7.1 OINT Apply to affected areas BID for 10 days [id number] 90641399103 No Longer Active Cassidy Del Rosario FOSAMAX 70 MG TABS 1 tab 1x wkly ALENDRONATE SODIUM 99711220588 No Longer Active Cassidy Del Rosario STOOL SOFTENER 100 MG CAPS prn DOCUSATE SODIUM 14417645647 No Longer Active Cassidy MATHIS'Steven NASAL SPRAY (DEXAMETHASONE, GENTAMICIN, SALINE) 2 puffs TID 05/13 DR. MATHIS'Steven NASAL SPRAY (DEXAMETHASONE, GENTAMICIN, SALINE) No Longer Active Cassidy Del Rosario ZITHROMAX Z-KOJO 250 MG TABS as directed AZITHROMYCIN 92524502383 No Longer Active Cassidy Del Rosario ZITHROMAX Z-KOJO 250 MG TABS 2 the first day, then 1 x 4 days 2003 AZITHROMYCIN 59882198170 No Longer Active Cassidy Del Rosario AMOS LOW STRENGTH 81 MG TBEC 1 po daily ASPIRIN 77587351301 Active Cassidy Del Rosario LEVOXYL 75 MCG TABS 1 po daily LEVOTHYROXINE SODIUM 39421705602 Active Jennifer Crawford Immunizations Vaccine Administration Date Value Standard Description [...] Range Description blood pressure, diastolic - 8462-4 64 mm[Hg] BP curry blood pressure, systolic - 8480-6 110 mm[Hg] BP sys pulse rate E&M - 8867-4 78 /min Heart rate respiratory rate E&M - 9279-1 14 /min Resp rate weight E&M - 3141-9 134 [lb_av] Weight Measured blood pressure, diastolic - 8462-4 60 mm[Hg] [...] E&M - 3141-9 130 [lb_av] Weight Measured Diagnostic Results Date Name Value Unit Range Description Clinical Lists Update: CBC,CMP,FLP,TSH,FREE T4,HGA1C,MICROALBUMIN - Chemistry alkaline phosphatase, serum 52 U/L urea nitrogen, blood 16 mg/dL calcium, serum 9.0 mg/dL chloride, serum 104 mmol/L cholesterol, serum 285 mg/dL carbon dioxide, venous blood 28.0 mmol/L creatinine, serum 0.8 mg/dL thyroxine, serum, free 1.08 ng/dL HDL cholesterol, serum 57.0 mg/dL hemoglobin A1C, blood, as % of total hemoglobin 5.7 % thyroid stimulating hormone, serum 1.09 u[iU]/mL LDL cholesterol, serum 207 mg/dL potassium, serum 4.2 mmol/L protein, total, serum 6.6 g/dL aspartate aminotransferase (SGOT), serum 20 U/L alanine aminotransferase (SGPT), serum 17 U/L bilirubin, serum, total 1.3 mg/dL triglyceride, serum, fasting 107 mg/dL sodium, serum 139 mmol/L anion gap, serum 11 cholesterol/HDL ratio, serum, percent 5.0 glucose, plasma fasting 94 mg/dL Estimated Glomerular Filtration Rate (calc) 74 mL/min/1.73m2 albumin, serum 3.9 g/dL Clinical Lists Update: CBC,CMP,FLP,TSH,FREE T4,HGA1C,MICROALBUMIN - Urinalysis microalbumin, urine, semiquantitative 1.5 mg/dL Clinical Lists Update: CMP,FLP,TSH,Free T4,HgA1c - Chemistry albumin, serum 4.0 g/dL alkaline phosphatase, serum 57 U/L urea nitrogen, blood 23 mg/dL calcium, serum 9.2 mg/dL chloride, serum 103 mmol/L cholesterol, serum 296 mg/dL carbon dioxide, venous blood 29.0 mmol/L creatinine, serum 0.9 mg/dL thyroxine, serum, free 0.89 ng/dL HDL cholesterol, serum 60.0 mg/dL hemoglobin A1C, blood, as % of total hemoglobin 5.8 % thyroid stimulating hormone, serum 2.45 u[iU]/mL LDL cholesterol, serum 212 mg/dL potassium, serum 4.1 mmol/L protein, total, serum 6.9 g/dL aspartate aminotransferase (SGOT), serum 18 U/L alanine aminotransferase (SGPT), serum 18 U/L bilirubin, serum, total 0.8 mg/dL triglyceride, serum, fasting 122 mg/dL sodium, serum 137 mmol/L anion gap, serum 9 cholesterol/HDL ratio, serum, percent 4.9 glucose, plasma fasting 100 mg/dL Estimated Glomerular Filtration Rate (calc) 65 mL/min/1.73m2 Encounters Code Encounter Date Provider Facility CPT-30455 Ofc Vst, Est Level IV 13:31:32 MOTOR ADJUSTER Cassidy Del Rosario, DO, FACP CPT-84318 Ofc Vst, Est Level III 12:51:00 CDT Cassidy Del Rosario DO, FACP CPT-23667 Ofc Vst, Est Level III 17:19:08 CDT Cassidy Del Rosario, DO, FACP CPT-84764 Ofc Vst, Est Level III 10:22:49 CDT Cassidy Del Rosario, DO, FACP CPT-16605 Ofc Vst, Est Level III 19:43:57 MOTOR ADJUSTER Cassidy Del Rosario, DO, FACP CPT-37481 Ofc Vst, Est Level III 14:03:12 MOT[employer] ADJUSTER Cassidy Del Rosario, DO, FACP CPT-36730 Ofc Vst, Est Level IV 13:10:01 MOTOR ADJUSTER Cassidy Del Rosario, DO, FACP CPT-43805 Ofc Vst, Est Level III 09:21:13 MOTOR ADJUSTER Cassidy Del Rosario, DO, FACP CPT-92597 Ofc Vst, Est Level IV 10:39:52 CDT Cassidy Del Rosario, DO, FACP CPT-98501 Ofc Vst, Est Level III 15:20:46 CDT Cassidy Candie Harris Del Rosario, DO, FACP CPT-68711 Ofc Vst, Est Level III 11:02:59 CDT Cassidywendy Harris Del Rosario, DO, FACP CPT-71304 Ofc Vst, Est Level IV 10:39:40 CDT Cassidy Candie Harris Del Rosario, DO, FACP CPT-94799 Ofc Vst, Est Level IV 10:37:24 CDT Cassidy Candie Harris Del Rosario, DO, FACP CPT-58068 Ofc Vst, Est Level IV 10:32:51 CDT Cassidy Candie Harris Del Rosario, DO, FACP CPT-80174 Ofc Vst, Est Level IV 12:53:45 CDT Cassidy Candie Prabhakarner, DO, FACP CPT-36426 Ofc Vst, Est Level V 15:47:50 CDT Cassidywendy [facility] CPT-03924 Ofc Vst, Est Level IV 09:46:59 MOTOR ADJUSTER Cassidy Harris Carin, DO, FACP CPT-80973 Ofc Vst, Est Level IV 11:28:13 CDT Cassidywendy Harris Carin, DO, FACP CPT-91156 Ofc Vst, Est Level IV 09:26:22 MOTOR ADJUSTER Cassidy Harris Del Rosario, DO, FACP CPT-05182 Ofc Vst, Est Level IV 09:58:11 CDT Cassidy Candie Harris Carin, DO, FACP CPT-61965 Ofc Vst, Est Level IV 10:04:29 CDT Cassidywendy Harris Carin, DO, FACP CPT-45080 Ofc Vst, Est Level III 17:37:38 MOTOR ADJUSTER Cassidy Del Rosario, DO, FACP CPT-79479 Ofc Vst, Est Level IV 10:00:32 MOTOR ADJUSTER Cassidy Del Rosario, DO, FACP CPT-66859 Ofc Vst, Est Level III 16:35:26 CDT Cassidy Candie Del Rosario, DO, FACP CPT-28251 Ofc Vst, Est Level IV 09:32:36 CDT Cassidy Candie Carin Del Rosario, DO, FACP CPT-86901 Ofc Vst, Est Level IV 10:53:32 CDT Cassidy Candie Del Rosario, DO, FACP CPT-72261 Ofc Vst, Est Level IV 10:01:21 CDT Cassiyd Del Rosario [facility] [place] CPT-47465 Ofc Vst, Est Level IV 11:19:41 CDT Cassidywendy Del Rosario [facility] [place] CPT-54839 Ofc Vst, Est Level IV 14:42:04 MOTOR ADJUSTER Cassidy Del Rosario [facility] [place] CPT-11616 Ofc Vst, Est Level III 11:37:20 CDT Cassidy Del Rosario [facility] [place] CPT-64314 Ofc Vst, Est Level III 09:49:36 MOTOR ADJUSTER Cassidy Del Rosario [facility] [place] CPT-31177 Ofc Vst, Est Level IV 09:45:40 MOTOR ADJUSTER Cassidy Del Rosario [facility] [place] CPT-55272 Ofc Vst, Est Level IV 14:04:02 CDT Cassidy Del Rosario [facility] [place] CPT-11536 Ofc Vst, Est Level III 17:26:04 MOTOR ADJUSTER Cassidy Del Rosario [facility] [place] CPT-55778 Ofc Vst, Est Level IV 13:17:46 MOTOR ADJUSTER Cassidy Del Rosario [facility] [place] CPT-59385 Ofc Vst, Est Level III 12:34:19 CDT Cassidy Del Rosario [facility] [place] CPT-29951 Ofc Vst, Est Level III 13:27:53 CDT Cassidy Del Rosario [facility] [place] Procedures Code Procedure Name Date Entry Date Standard Description CPT-G0439 Medicare Annual Wellness Visit 21:13:31 CDT CPT-G0439 Medicare Annual Wellness Visit 21:16:15 CDT CPT-G8443 E-Prescribing Medication Sent 19:43:57 MOTOR ADJUSTER CPT-G8445 E-Prescribing Not sent due to no medication given 12:16: 14 CDT CPT-G0439 Medicare Annual Wellness Visit 12:16:14 CDT CPT-G8445 E-Prescribing Not sent due to no medication given 14:03: 12 MOTOR ADJUSTER CPT-G8445 E-Prescribing Not sent due to no medication given 13:10: 01 MOTOR ADJUSTER CPT-G8443 E-Prescribing Medication Sent 09:21:13 MOTOR ADJUSTER CPT-73766 Tetanus vaccine, adsorbed, intramuscular 10:53:32 CDT CPT-07994 Injection, Pneumovax 10:53:32 CDT CPT-90229 Administration of 1st dose vaccine 10:53:32 CDT CPT-89933 Cryopathy Skin 14:04:02 CDT
--- OUTSIDE RECORDS SUMMARY | 2017-02-28 03:27 | XMS REPORT | Clinical Summary ---
Author Author User, JEFFERSON Organization [facility] [place] Address Unknown Phone Unavailable Allergies, Adverse Reactions, [...] 100 MG TAB 1 PO daily FLUCONAZOLE 19146890286 No Longer Active Cassidy Del Rosario NYSTATIN 101399 UNIT/GM POWD apply over the Nystatin cream BID NYSTATIN 89921391681 No Longer Active Cassidywendy Del Rosario NYSTATIN 619973 UNIT/GM CREA apply to affected areas BID for 7 days NYSTATIN 77337044830 No Longer Active Cassidy Del Rosario ATROVENT 0.06 % SOLN 2 puffs each nostril QID PRN IPRATROPIUM BROMIDE 04019469652 No Longer Active Jennifer Crawford FISH OIL 1000 MG CAPS 1 PO daily OMEGA-3 FATTY ACIDS 80662052728 Active Cassidywendy Del Rosario CONSTULOSE 10 GM/15ML SOLN 10cc PO TID prn constipation LACTULOSE 91692095315 No Longer Active Cassidy Del Rosario PYRIDIUM 200 MG TAB 1 PO TID prn urinary urgency PHENAZOPYRIDINE HCL 10067746335 No Longer Active Jennifer Crawford LEVAQUIN 500 MG TAB 1 PO QD LEVOFLOXACIN 27754008647 No Longer Active Jennifer Crawford ZETIA 10 MG TABS 1 PO daily for cholesterol. EZETIMIBE 90306830649 No Longer Active Cassidy Del Rosario PYRIDIUM 200 MG TAB 1 PO TID prn urinary urgency PHENAZOPYRIDINE HCL 12292687994 No Longer Active Jennifer Crawford LEVAQUIN 500 MG TAB 1 PO QD x 5 days LEVOFLOXACIN 96196821935 No Longer Active Jennifer Crawford FOSAMAX 70 MG TABS 1 PO daily ALENDRONATE SODIUM 77544361957 No Longer Active Cassidy Del Rosario GEMFIBROZIL 600 MG TABS 1 po bid GEMFIBROZIL 23249178427 No Longer Active Jennifer Crawford CARAFATE 1 GM TABS 1 PO 30 minutes before meals and at bedtime SUCRALFATE 81652407230 No Longer Active Cassidy Del Rosario OMEPRAZOLE 20 MG CPDR 1 PO BID OMEPRAZOLE 21003694061 No Longer Active Cassidy Candie Del Rosario COZAAR 50 MG TAB 1 PO daily LOSARTAN POTASSIUM 53536342365 Active Jennifer Crawford NORVASC 5 MG TAB 1 PO QD AMLODIPINE BESYLATE 55714751696 Active Jennifer Crawford CYCLOBENZAPRINE HCL 5 MG TABS 1 po BID PRN CYCLOBENZAPRINE HCL 05931178340 No Longer Active Cassidy Del Rosario FISH OIL CONCENTRATE 1000 MG CAPS OMEGA-3 FATTY ACIDS 94258349445 No Longer Active Cassidywendy Del Rosario PYRIDIUM 200 MG TAB 1 PO TID prn urinary urgency PHENAZOPYRIDINE HCL 90311692350 No Longer Active Jennifer Crawford CIPRO 250 MG TABS 1 PO BID CIPROFLOXACIN HCL 30532420296 No Longer Active Jennifer Crawford KENALOG 0.1 % CREA Apply to affected area BID for 10 days and keep covered TRIAMCINOLONE ACETONIDE 25156276206 No Longer Active Cassidywendy Del Rosario CHRISTINA 180 MG TABS 1 PO QD FEXOFENADINE HCL 63093344468 No Longer Active Cassidywendy Del Rosario CALTRATE 600 PLUS-VIT D 600-200 MG-IU TABS 1 PO BID CALCIUM-VITAMIN D 02978903262 Active Cassidywendy Del Rosario ZOSTAVAX 12345 UNT/0.65ML SOLR 1 injection once ZOSTER VACCINE LIVE 77342668434 No Longer Active Cassidywendy Del Rosario BIAXIN XL PAC 500 MG TB24 2 pills at same time daily for 7 days CLARITHROMYCIN 85902999293 No Longer Active Cassidywendy Del Rosario AMOXICILLIN 500 MG CAP 1 PO TID AMOXICILLIN 01297004125 No Longer Active Cassidy Del Rosario PYRIDIUM 200 MG TABS I PO TID for 2 days PHENAZOPYRIDINE HCL 27122460575 No Longer Active Cassidy BRAVO NASAL SPRAY (DEXAMETHASONE, GENTAMICIN, SALINE) 2 puffs each nostril TID DR. BRAVO NASAL SPRAY (DEXAMETHASONE, GENTAMICIN, SALINE) No Longer Active Cassidy Del Rosario AUGMENTIN 500-125 MG TAB 1 PO BID AMOXICILLIN-POT CLAVULANATE 79834978690 No Longer Active Cassidy Del Rosario CIPRO 250 MG TABS 1 po BID x 7 days CIPROFLOXACIN HCL 78001374255 No Longer Active Jennifer Crawford MICONAZOLE NITRATE POWD apply to affected areas TID for 7 days MICONAZOLE NITRATE 70923080069 No Longer Active Cassidy Del Rosario NYSTATIN 154421 UNIT/GM CREA apply to affected areas BID for 7 days NYSTATIN 89375113173 No Longer Active Cassidy Del Rosario ZITHROMAX Z-KOJO 250 MG TABS as directed AZITHROMYCIN 23226972153 No Longer Active Cassidy BRAVO NASAL SPRAY (DEXAMETHASONE, GENTAMICIN, SALINE) 2 puffs each nostril BID DR. BRAVO NASAL SPRAY (DEXAMETHASONE, GENTAMICIN, SALINE) No Longer Active Cassidy Del Rosario CHLORPHENIRAMINE MALEATE 4 MG TABS 1 PO Q6hrs prn for cold 03/25 CHLORPHENIRAMINE MALEATE 99159120080 No Longer Active Desmond Hackett FOLTX 2.5-25-2 MG TABS 1 PO QD FOLIC ACID-VIT B6-VIT B12 59451225322 Active Jennifer Crawford CALCIUM 500 MG TABS 1 PO BID CALCIUM 66694832614 No Longer Active Cassidy Del Rosario FULTEX 1 PO QD FULTEX No Longer Active Cassidy Del Rosario [id number]-[id number] 0.35-98201-9.1 OINT Apply to affected areas BID for 10 days [id number]-[id number]-[id number] 45538718228 No Longer Active Cassidy Del Rosario FOSAMAX 70 MG TABS 1 tab 1x wkly ALENDRONATE SODIUM 90320807255 No Longer Active Cassidy Del Rosario STOOL SOFTENER 100 MG CAPS prn DOCUSATE SODIUM 81934111011 No Longer Active Cassidy MATHIS'Steven NASAL SPRAY (DEXAMETHASONE, GENTAMICIN, SALINE) 2 puffs TID 05/13 DR. MATHIS'Steven NASAL SPRAY (DEXAMETHASONE, GENTAMICIN, SALINE) No Longer Active Cassidy Del Rosario ZITHROMAX Z-KOJO 250 MG TABS as directed AZITHROMYCIN 65922894560 No Longer Active Cassidy Del Rosario ZITHROMAX Z-KOJO 250 MG TABS 2 the first day, then 1 x 4 days 2003 AZITHROMYCIN 18341390193 No Longer Active Cassidy Del Rosario AMOS LOW STRENGTH 81 MG TBEC 1 po daily ASPIRIN 67304062514 Active Cassidy Del Rosario LEVOXYL 75 MCG TABS 1 po daily LEVOTHYROXINE SODIUM 65643127896 Active Ghanshyam Taylor Immunizations Vaccine Administration Date [...] % Encounters Code Encounter Date Provider Facility CPT-97495 Ofc Vst, Est Level IV 13:31:32 COLLEGE RECRUITER Cassidy Del Rosario DO, FACP CPT-86094 Ofc Vst, Est Level III 12:51:00 CDT Cassidy Del Rosario DO, FACP CPT-91168 Ofc Vst, Est Level III 17:19:08 CDT Cassidy Del Rosario DO, FACP CPT-71120 Ofc Vst, Est Level III 10:22:49 CDT Cassidy Del Rosario DO, FACP CPT-83622 Ofc Vst, Est Level III 19:43:57 COLLEGE RECRUITER Cassidy Del Rosario DO, FACP CPT-37084 Ofc Vst, Est Level III 14:03:12 COLLEGE RECRUITER Cassidy Del Rosario DO, FACP CPT-24197 Ofc Vst, Est Level IV 13:10:01 COLLEGE RECRUITER Cassidy Harris Carin, DO, FACP CPT-67846 Ofc Vst, Est Level III 09:21:13 COLLEGE RECRUITER Cassidy Harris Carin, DO, FACP CPT-66613 Ofc Vst, Est Level IV 10:39:52 CDT Cassidy Candie Harris Carin, DO, FACP CPT-89742 Ofc Vst, Est Level III 15:20:46 CDT Cassidy Candie Harris Carin, DO, FACP CPT-94146 Ofc Vst, Est Level III 11:02:59 CDT Cassidy Candie Harris Carin, DO, FACP CPT-93798 Ofc Vst, Est Level IV 10:39:40 CDT Cassidy Candie Harris Carin, DO, FACP CPT-36819 Ofc Vst, Est Level IV 10:37:24 CDT Cassidywendy Harris Carin, DO, FACP CPT-06484 Ofc Vst, Est Level IV 10:32:51 CDT Cassidywendy Harris Carin, DO, FACP CPT-42358 Ofc Vst, Est Level IV 12:53:45 CDT Cassidywendy Harris Carin, DO, FACP CPT-34390 Ofc Vst, Est Level V 15:47:50 CDT Cassidywendy Del Rosario [facility] CPT-80550 Ofc Vst, Est Level IV 09:46:59 COLLEGE RECRUITER Cassidy Candie Harris Carin, DO, FACP CPT-09331 Ofc Vst, Est Level IV 11:28:13 CDT Cassidy Candie Harris Carin, DO, FACP CPT-60167 Ofc Vst, Est Level IV 09:26:22 COLLEGE RECRUITER Cassidy Candie Harris Carin, DO, FACP CPT-97822 Ofc Vst, Est Level IV 09:58:11 CDT Cassidy Candie Carin Cassidy Steven Carin, DO, FACP CPT-26629 Ofc Vst, Est Level IV 10:04:29 CDT Cassidy Candie Carin Benjamin Steven Carin, DO, FACP CPT-19970 Ofc Vst, Est Level III 17:37:38 COLLEGE RECRUITER Cassidywendy Schreiber Del Rosario Cassidy Steven Carin, DO, FACP CPT-04656 Ofc Vst, Est Level IV 10:00:32 COLLEGE RECRUITER Cassidy Candie Carin Del Rosario, DO, FACP CPT-50086 Ofc Vst, Est Level III 16:35:26 CDT Cassidywendy [place] Carin Del Rosario, DO, FACP CPT-70098 Ofc Vst, Est Level IV 09:32:36 CDT Cassidy Candie Carin Benjamin Steven Carin, DO, FACP CPT-19478 Ofc Vst, Est Level IV 10:53:32 CDT Cassidy Candie Carin Del Rosario, DO, FACP CPT-16337 Ofc Vst, Est Level IV 10:01:21 CDT Cassidy Del Rosario [facility] [place] CPT-19463 Ofc Vst, Est Level IV 11:19:41 CDT Cassidy Del Rosario [facility] [place] CPT-57163 Ofc Vst, Est Level IV 14:42:04 COLLEGE RECRUITER Cassidy Del Rosario [facility] [place] CPT-73308 Ofc Vst, Est Level III 11:37:20 CDT Cassidy Del Rosario [facility] [place] CPT-82225 Ofc Vst, Est Level III 09:49:36 COLLEGE RECRUITER Cassidy Del Rosario [facility] [place] CPT-93489 Ofc Vst, Est Level IV 09:45:40 COLLEGE RECRUITER Cassidy Del Rosario [facility] [place] CPT-65985 Ofc Vst, Est Level IV 14:04:02 CDT [facility] Candie Prabhakarner [facility] [place] CPT-11407 Ofc Vst, Est Level III 17:26:04 COLLEGE RECRUITER Cassidy Candie Prabhakarner [facility] [place] CPT-48536 Ofc Vst, Est Level IV 13:17:46 COLLEGE RECRUITER Cassidy Candie Prabhakarner [facility] [place] CPT-46843 Ofc Vst, Est Level III 12:34:19 CDT [facility] Candie Prabhakarner [facility] [place] CPT-90597 Ofc Vst, Est Level III 13:27:53 CDT [facility] Candie Del Rosario [facility] [place] Procedures Code Procedure Name Date Entry Date Standard Description CPT-G0439 Medicare Annual Wellness Visit 21:16:15 CDT CPT-G8443 E-Prescribing Medication Sent 19:43:57 COLLEGE RECRUITER CPT-G8445 E-Prescribing Not sent due to no medication given 12:16: 14 CDT CPT-G0439 Medicare Annual Wellness Visit 12:16:14 CDT CPT-G8445 E-Prescribing Not sent due to no medication given 14:03: 12 COLLEGE RECRUITER CPT-G8445 E-Prescribing Not sent due to no medication given 13:10: 01 COLLEGE RECRUITER CPT-G8443 E-Prescribing Medication Sent 09:21:13 COLLEGE RECRUITER CPT-06062 Tetanus vaccine, adsorbed, intramuscular 10:53:32 CDT CPT-33151 Injection, Pneumovax 10:53:32 CDT CPT-03383 Administration of 1st dose vaccine 10:53:32 CDT CPT-20083 Cryopathy Skin 14:04:02 CDT
--- OUTSIDE RECORDS SUMMARY | 2017-02-28 03:28 | XMS REPORT | Clinical Summary ---
Author Author User, JEFFERSON Organization [facility] Address Unknown Phone Unavailable Allergies, Adverse Reactions, [...] 100 MG TAB 1 PO daily FLUCONAZOLE 14941681595 No Longer Active Cassidy Del Rosario NYSTATIN 311968 UNIT/GM POWD apply over the Nystatin cream BID NYSTATIN 50859914943 No Longer Active Cassidywendy Del Rosario NYSTATIN 529236 UNIT/GM CREA apply to affected areas BID for 7 days NYSTATIN 68874475389 No Longer Active Cassidy Del Rosario ATROVENT 0.06 % SOLN 2 puffs each nostril QID PRN IPRATROPIUM BROMIDE 33767714596 No Longer Active Jennifer Crawford FISH OIL 1000 MG CAPS 1 PO daily OMEGA-3 FATTY ACIDS 34547983147 Active Cassidywendy Del Rosario CONSTULOSE 10 GM/15ML SOLN 10cc PO TID prn constipation LACTULOSE 27366404793 No Longer Active Cassidy Del Rosario PYRIDIUM 200 MG TAB 1 PO TID prn urinary urgency PHENAZOPYRIDINE HCL 00159411469 No Longer Active Jennifer Crawford LEVAQUIN 500 MG TAB 1 PO QD LEVOFLOXACIN 25813141969 No Longer Active Jennifer Crawford ZETIA 10 MG TABS 1 PO daily for cholesterol. EZETIMIBE 97330825637 No Longer Active Cassidy Del Rosario PYRIDIUM 200 MG TAB 1 PO TID prn urinary urgency PHENAZOPYRIDINE HCL 84201068502 No Longer Active Jennifer Crawford LEVAQUIN 500 MG TAB 1 PO QD x 5 days LEVOFLOXACIN 39684208056 No Longer Active Jennifer Crawford FOSAMAX 70 MG TABS 1 PO daily ALENDRONATE SODIUM 02198627784 No Longer Active Cassidy Del Rosario GEMFIBROZIL 600 MG TABS 1 po bid GEMFIBROZIL 22708129362 No Longer Active Jennifer Crawford CARAFATE 1 GM TABS 1 PO 30 minutes before meals and at bedtime SUCRALFATE 78287523302 No Longer Active Cassidy Del Rosario OMEPRAZOLE 20 MG CPDR 1 PO BID OMEPRAZOLE 73026210477 No Longer Active Cassidy Candie Del Rosario COZAAR 50 MG TAB 1 PO daily LOSARTAN POTASSIUM 53939865636 Active Jennifer Crawford NORVASC 5 MG TAB 1 PO QD AMLODIPINE BESYLATE 59561495675 Active Jennifer Crawford CYCLOBENZAPRINE HCL 5 MG TABS 1 po BID PRN CYCLOBENZAPRINE HCL 18726319940 No Longer Active Cassidy Del Rosario FISH OIL CONCENTRATE 1000 MG CAPS OMEGA-3 FATTY ACIDS 40258448281 No Longer Active Cassidywendy Del Rosario PYRIDIUM 200 MG TAB 1 PO TID prn urinary urgency PHENAZOPYRIDINE HCL 15138389096 No Longer Active Jennifer Crawford CIPRO 250 MG TABS 1 PO BID CIPROFLOXACIN HCL 82132357647 No Longer Active Jennifer Crawford KENALOG 0.1 % CREA Apply to affected area BID for 10 days and keep covered TRIAMCINOLONE ACETONIDE 96470592276 No Longer Active Cassidywendy Del Rosario CHRISTINA 180 MG TABS 1 PO QD FEXOFENADINE HCL 97896232282 No Longer Active Cassidywendy Del Rosario CALTRATE 600 PLUS-VIT D 600-200 MG-IU TABS 1 PO BID CALCIUM-VITAMIN D 41337906559 Active Cassidywendy Del Rosario ZOSTAVAX 46440 UNT/0.65ML SOLR 1 injection once ZOSTER VACCINE LIVE 76683376311 No Longer Active Cassidywendy Del Rosario BIAXIN XL PAC 500 MG TB24 2 pills at same time daily for 7 days CLARITHROMYCIN 45597713480 No Longer Active Cassidywendy Del Rosario AMOXICILLIN 500 MG CAP 1 PO TID AMOXICILLIN 84280240738 No Longer Active Cassidy Del Rosario PYRIDIUM 200 MG TABS I PO TID for 2 days PHENAZOPYRIDINE HCL 70255777315 No Longer Active Cassidy BRAVO NASAL SPRAY (DEXAMETHASONE, GENTAMICIN, SALINE) 2 puffs each nostril TID DR. BRAVO NASAL SPRAY (DEXAMETHASONE, GENTAMICIN, SALINE) No Longer Active Cassidy Del Rosario AUGMENTIN 500-125 MG TAB 1 PO BID AMOXICILLIN-POT CLAVULANATE 89511190913 No Longer Active Cassidy Del Rosario CIPRO 250 MG TABS 1 po BID x 7 days CIPROFLOXACIN HCL 94828207553 No Longer Active Jennifer Crawford MICONAZOLE NITRATE POWD apply to affected areas TID for 7 days MICONAZOLE NITRATE 70320290948 No Longer Active Cassidy Del Rosario NYSTATIN 883090 UNIT/GM CREA apply to affected areas BID for 7 days NYSTATIN 75356003345 No Longer Active Cassidy Del Rosario ZITHROMAX Z-KOJO 250 MG TABS as directed AZITHROMYCIN 67461422103 No Longer Active Cassidy BRAVO NASAL SPRAY (DEXAMETHASONE, GENTAMICIN, SALINE) 2 puffs each nostril BID DR. BRAVO NASAL SPRAY (DEXAMETHASONE, GENTAMICIN, SALINE) No Longer Active Cassidy Del Rosario CHLORPHENIRAMINE MALEATE 4 MG TABS 1 PO Q6hrs prn for cold 03/25 CHLORPHENIRAMINE MALEATE 35478295434 No Longer Active Desmond Hackett FOLTX 2.5-25-2 MG TABS 1 PO QD FOLIC ACID-VIT B6-VIT B12 97407926338 Active Jennifer Crawford CALCIUM 500 MG TABS 1 PO BID CALCIUM 79694971032 No Longer Active Cassidy Del Rosario FULTEX 1 PO QD FULTEX No Longer Active Cassidy Del Rosario VSVFNYBQ-[id number]-JLOYUPPZ 0.35-46738-8.1 OINT Apply to affected areas BID for 10 days [id number] 16823990324 No Longer Active Cassidy Del Rosario FOSAMAX 70 MG TABS 1 tab 1x wkly ALENDRONATE SODIUM 00056973779 No Longer Active Cassidy Del Rosario STOOL SOFTENER 100 MG CAPS prn DOCUSATE SODIUM 98355890400 No Longer Active Cassidy MATHIS'Steven NASAL SPRAY (DEXAMETHASONE, GENTAMICIN, SALINE) 2 puffs TID 05/13 DR. MATHIS'Steven NASAL SPRAY (DEXAMETHASONE, GENTAMICIN, SALINE) No Longer Active Cassidy Del Rosario ZITHROMAX Z-KOJO 250 MG TABS as directed AZITHROMYCIN 52156571081 No Longer Active Cassidy Del Rosario ZITHROMAX Z-KOJO 250 MG TABS 2 the first day, then 1 x 4 days 2003 AZITHROMYCIN 48669051289 No Longer Active Cassidy Del Rosario AMOS LOW STRENGTH 81 MG TBEC 1 po daily ASPIRIN 08762376957 Active Cassidy Del Rosario LEVOXYL 75 MCG TABS 1 po daily LEVOTHYROXINE SODIUM 63195392536 Active Ghanshyam Taylor Immunizations Vaccine Administration Date [...] Clinical Lists Update: CBC,CMP,FLP,TSH,FREE T4,HGA1C,MICROALBUMIN - Chemistry chloride, serum 104 mmol/L cholesterol/HDL ratio, serum, percent 5.0 cholesterol, serum 285 mg/dL carbon dioxide, venous blood 28.0 mmol/L creatinine, serum 0.8 mg/dL Estimated Glomerular Filtration Rate (calc) 74 mL/min/1.73m2 glucose, plasma fasting 94 mg/dL HDL cholesterol, serum 57.0 mg/dL hemoglobin A1C, blood, as % of total hemoglobin 5.7 % LDL cholesterol, serum 207 mg/dL albumin, serum 3.9 g/dL alkaline phosphatase, serum 52 U/L anion gap, serum 11 bilirubin, serum, total 1.3 mg/dL urea nitrogen, blood 16 mg/dL calcium, serum 9.0 mg/dL thyroxine, serum, free 1.08 ng/dL triglyceride, serum, fasting 107 mg/dL thyroid stimulating hormone, serum 1.09 u[iU]/mL potassium, serum 4.2 mmol/L protein, total, serum 6.6 g/dL aspartate aminotransferase (SGOT), serum 20 U/L alanine aminotransferase (SGPT), serum 17 U/L sodium, serum 139 mmol/L Clinical Lists Update: CBC,CMP,FLP,TSH,FREE T4,HGA1C,MICROALBUMIN - Urinalysis microalbumin, urine, semiquantitative 1.5 mg/dL Clinical Lists Update: CMP,FLP,TSH,Free T4,HgA1c - Chemistry sodium, serum 137 mmol/L thyroxine, serum, free 0.89 ng/dL potassium, serum 4.1 mmol/L calcium, serum 9.2 mg/dL Estimated Glomerular Filtration Rate (calc) 65 mL/min/1.73m2 urea nitrogen, blood 23 mg/dL cholesterol, serum 296 mg/dL bilirubin, serum, total 0.8 mg/dL alanine aminotransferase (SGPT), serum 18 U/L chloride, serum 103 mmol/L glucose, plasma fasting 100 mg/dL aspartate aminotransferase (SGOT), serum 18 U/L HDL cholesterol, serum 60.0 mg/dL protein, total, serum 6.9 g/dL hemoglobin A1C, blood, as % of total hemoglobin 5.8 % LDL cholesterol, serum 212 mg/dL carbon dioxide, venous blood 29.0 mmol/L albumin, serum 4.0 g/dL cholesterol/HDL ratio, serum, percent 4.9 alkaline phosphatase, serum 57 U/L creatinine, serum 0.9 mg/dL anion gap, serum 9 triglyceride, serum, fasting 122 mg/dL thyroid stimulating hormone, serum 2.45 u[iU]/mL Office Visit: Dr Del Rosario's Check Up: Established Patient Visit - Chemistry calcium, serum 9.0 mg/dL urea nitrogen, blood 17 mg/dL anion gap, serum 12 alkaline phosphatase, serum 45 U/L albumin, serum 3.6 g/dL glucose, plasma fasting 162 mg/dL Estimated Glomerular Filtration Rate (calc) 80 mL/min/1.73m2 creatinine, serum 0.7 mg/dL carbon dioxide, venous blood 28.0 mmol/L chloride, serum 103 mmol/L bilirubin, serum, total 0.7 mg/dL sodium, serum 139 mmol/L alanine aminotransferase (SGPT), serum 18 U/L aspartate aminotransferase (SGOT), serum 17 U/L protein, total, serum 6.2 g/dL potassium, serum 3.7 mmol/L Office Visit: Dr Del Rosario's Check Up: Established Patient Visit - Hematology erythrocyte (RBC) count 3.90 10*6/mm3 red blood cell distribution width 13.8 % hemoglobin, blood 11.9 g/dL hematocrit, blood 37 % mean corpuscular volume, RBC 96 fL erythrocyte sedimentation rate 58 mm/h platelet count 203 10*3/mm3 leukocyte count, blood 8.0 10*3/mm3 Encounters Code Encounter Date Provider Facility CPT-82800 Ofc Vst, Est Level IV 13:31:32 TELESALES REPRESENTATIVE Cassidy Del Rosario DO, FACP CPT-52741 Ofc Vst, Est Level III 12:51:00 CDT Cassidy Del Rosario DO, FACP CPT-76401 Ofc Vst, Est Level III 17:19:08 CDT Cassidy Del Rosario DO, FACP CPT-00479 Ofc Vst, Est Level III 10:22:49 CDT Cassidy Del Rosario DO, FACP CPT-69064 Ofc Vst, Est Level III 19:43:57 TELESALES REPRESENTATIVE Cassidy Del Rosario DO, FACP CPT-93710 Ofc Vst, Est Level III 14:03:12 TELESALES REPRESENTATIVE Cassidy Del Rosario DO, FACP CPT-39809 Ofc Vst, Est Level IV 13:10:01 TELESALES REPRESENTATIVE Cassidy Harris Carni, DO, FACP CPT-88397 Ofc Vst, Est Level III 09:21:13 TELESALES REPRESENTATIVE Cassidy Harris Carin, DO, FACP CPT-56316 Ofc Vst, Est Level IV 10:39:52 CDT Cassidy Candie Harris Carin, DO, FACP CPT-21635 Ofc Vst, Est Level III 15:20:46 CDT Cassidy Candie Harris Carin, DO, FACP CPT-47894 Ofc Vst, Est Level III 11:02:59 CDT Cassidy Candie Harris Carin, DO, FACP CPT-39238 Ofc Vst, Est Level IV 10:39:40 CDT Cassidy Candie Harris Carin, DO, FACP CPT-42705 Ofc Vst, Est Level IV 10:37:24 CDT Cassidy Candie Harris Carin, DO, FACP CPT-51262 Ofc Vst, Est Level IV 10:32:51 CDT Cassidy Candie Harris Carin, DO, FACP CPT-65493 Ofc Vst, Est Level IV 12:53:45 CDT Cassidy Candie Harris Carin DO, FACP CPT-24784 Ofc Vst, Est Level V 15:47:50 CDT Cassidywendy [facility] CPT-77887 Ofc Vst, Est Level IV 09:46:59 TELESALES REPRESENTATIVE Cassidy Candie Harris Carin, DO, FACP CPT-13022 Ofc Vst, Est Level IV 11:28:13 CDT Cassidy Candie Harris Carin, DO, FACP CPT-95557 Ofc Vst, Est Level IV 09:26:22 TELESALES REPRESENTATIVE Cassidy Candie Harris Del Rosario, DO, FACP CPT-81882 Ofc Vst, Est Level IV 09:58:11 CDT Cassidy Candie Carin Del Rosario, DO, FACP CPT-64101 Ofc Vst, Est Level IV 10:04:29 CDT Cassidy Candie Carin Del Rosario, DO, FACP CPT-23773 Ofc Vst, Est Level III 17:37:38 TELESALES REPRESENTATIVE Cassidywendy Schreiber Carin Del Rosario, DO, FACP CPT-27074 Ofc Vst, Est Level IV 10:00:32 TELESALES REPRESENTATIVE Cassidy Candieerika Del Rosario, DO, FACP CPT-44829 Ofc Vst, Est Level III 16:35:26 CDT Cassidy Candieerika Del Rosario, DO, FACP CPT-62929 Ofc Vst, Est Level IV 09:32:36 CDT Cassidy Candie Carin Del Rosario, DO, FACP CPT-64677 Ofc Vst, Est Level IV 10:53:32 CDT Cassidy Candieerika Del Rosario, DO, FACP CPT-06263 Ofc Vst, Est Level IV 10:01:21 CDT Cassidy Del Rosario [facility] CPT-61551 Ofc Vst, Est Level IV 11:19:41 CDT Cassidy Del Rosario [facility] CPT-05735 Ofc Vst, Est Level IV 14:42:04 TELESALES REPRESENTATIVE Cassidy Del Rosario [facility] CPT-28244 Ofc Vst, Est Level III 11:37:20 CDT Cassidy Del Rosario [facility] CPT-01435 Ofc Vst, Est Level III 09:49:36 TELESALES REPRESENTATIVE Cassidy Del Rosario [facility] CPT-34548 Ofc Vst, Est Level IV 09:45:40 TELESALES REPRESENTATIVE Cassidy Del Rosario [facility] CPT-52288 Ofc Vst, Est Level IV 14:04:02 CDT Cassidy Candie Carin [facility] CPT-61726 Ofc Vst, Est Level III 17:26:04 TELESALES REPRESENTATIVE Cassidy Candie Carin [facility] CPT-09890 Ofc Vst, Est Level IV 13:17:46 TELESALES REPRESENTATIVE Cassidy Candie Carin [facility] CPT-21414 Ofc Vst, Est Level III 12:34:19 CDT Cassidy Candie Carin [facility] CPT-29465 Ofc Vst, Est Level III 13:27:53 CDT Cassidy Candie Del Rosario [facility] Procedures Code Procedure Name Date Entry Date Standard Description CPT-G0439 Medicare Annual Wellness Visit 21:13:31 CDT CPT-G0439 Medicare Annual Wellness Visit 21:16:15 CDT CPT-G8443 E-Prescribing Medication Sent 19:43:57 TELESALES REPRESENTATIVE CPT-G8445 E-Prescribing Not sent due to no medication given 12:16: 14 CDT CPT-G0439 Medicare Annual Wellness Visit 12:16:14 CDT CPT-G8445 E-Prescribing Not sent due to no medication given 14:03: 12 TELESALES REPRESENTATIVE CPT-G8445 E-Prescribing Not sent due to no medication given 13:10: 01 TELESALES REPRESENTATIVE CPT-G8443 E-Prescribing Medication Sent 09:21:13 TELESALES REPRESENTATIVE CPT-80422 Tetanus vaccine, adsorbed, intramuscular 10:53:32 CDT CPT-10057 Injection, Pneumovax 10:53:32 CDT CPT-10076 Administration of 1st dose vaccine 10:53:32 CDT CPT-55996 Cryopathy Skin 14:04:02 CDT
--- OUTSIDE RECORDS SUMMARY | 2017-02-28 03:28 | XMS REPORT | Clinical Summary ---
Author Author User, JEFFERSON Organization [facility] Address Unknown Phone Unavailable Allergies, Adverse Reactions, [...] 100 MG TAB 1 PO daily FLUCONAZOLE 70707291248 No Longer Active Cassidy Del Rosario NYSTATIN 235206 UNIT/GM POWD apply over the Nystatin cream BID NYSTATIN 51923926309 No Longer Active Cassidywendy Del Rosario NYSTATIN 175400 UNIT/GM CREA apply to affected areas BID for 7 days NYSTATIN 94270039283 No Longer Active Cassidy Del Rosario ATROVENT 0.06 % SOLN 2 puffs each nostril QID PRN IPRATROPIUM BROMIDE 42379672469 No Longer Active Jennifer Crawford FISH OIL 1000 MG CAPS 1 PO daily OMEGA-3 FATTY ACIDS 80516046158 Active Cassidywendy Del Rosario CONSTULOSE 10 GM/15ML SOLN 10cc PO TID prn constipation LACTULOSE 91078049907 No Longer Active Cassidy Del Rosario PYRIDIUM 200 MG TAB 1 PO TID prn urinary urgency PHENAZOPYRIDINE HCL 57111531481 No Longer Active Jennifer Crawford LEVAQUIN 500 MG TAB 1 PO QD LEVOFLOXACIN 98343850972 No Longer Active Jennifer Crawford ZETIA 10 MG TABS 1 PO daily for cholesterol. EZETIMIBE 25926126258 No Longer Active Cassidy Del Rosario PYRIDIUM 200 MG TAB 1 PO TID prn urinary urgency PHENAZOPYRIDINE HCL 43146879153 No Longer Active Jennifer Crawford LEVAQUIN 500 MG TAB 1 PO QD x 5 days LEVOFLOXACIN 63224298549 No Longer Active Jennifer Crawford FOSAMAX 70 MG TABS 1 PO daily ALENDRONATE SODIUM 83183418601 No Longer Active Cassidy Del Rosario GEMFIBROZIL 600 MG TABS 1 po bid GEMFIBROZIL 42309911835 No Longer Active Jennifer Crawford CARAFATE 1 GM TABS 1 PO 30 minutes before meals and at bedtime SUCRALFATE 61406162043 No Longer Active Cassidy Del Rosario OMEPRAZOLE 20 MG CPDR 1 PO BID OMEPRAZOLE 31240561583 No Longer Active Cassidy Candie Del Rosario COZAAR 50 MG TAB 1 PO daily LOSARTAN POTASSIUM 64940966020 Active Jennifer Crawford NORVASC 5 MG TAB 1 PO QD AMLODIPINE BESYLATE 11049043915 Active Jennifer Crawford CYCLOBENZAPRINE HCL 5 MG TABS 1 po BID PRN CYCLOBENZAPRINE HCL 25843645355 No Longer Active Cassidy Del Rosario FISH OIL CONCENTRATE 1000 MG CAPS OMEGA-3 FATTY ACIDS 28134263635 No Longer Active Cassidywendy Del Rosario PYRIDIUM 200 MG TAB 1 PO TID prn urinary urgency PHENAZOPYRIDINE HCL 29385601219 No Longer Active Jennifer Crawford CIPRO 250 MG TABS 1 PO BID CIPROFLOXACIN HCL 34507163426 No Longer Active Jennifer Crawford KENALOG 0.1 % CREA Apply to affected area BID for 10 days and keep covered TRIAMCINOLONE ACETONIDE 63470251469 No Longer Active Cassidywendy Del Rosario CHRISTINA 180 MG TABS 1 PO QD FEXOFENADINE HCL 00034274052 No Longer Active Cassidywendy Del Rosario CALTRATE 600 PLUS-VIT D 600-200 MG-IU TABS 1 PO BID CALCIUM-VITAMIN D 37491993220 Active Cassidywendy Del Rosario ZOSTAVAX 08232 UNT/0.65ML SOLR 1 injection once ZOSTER VACCINE LIVE 78692576064 No Longer Active Cassidywendy Del Rosario BIAXIN XL PAC 500 MG TB24 2 pills at same time daily for 7 days CLARITHROMYCIN 89252211529 No Longer Active Cassidywendy Del Rosario AMOXICILLIN 500 MG CAP 1 PO TID AMOXICILLIN 91802677998 No Longer Active Cassidy Del Rosario PYRIDIUM 200 MG TABS I PO TID for 2 days PHENAZOPYRIDINE HCL 27421802915 No Longer Active Cassidy BRAVO NASAL SPRAY (DEXAMETHASONE, GENTAMICIN, SALINE) 2 puffs each nostril TID DR. BRAVO NASAL SPRAY (DEXAMETHASONE, GENTAMICIN, SALINE) No Longer Active Cassidy Del Rosario AUGMENTIN 500-125 MG TAB 1 PO BID AMOXICILLIN-POT CLAVULANATE 86204942548 No Longer Active Cassidy Del Rosario CIPRO 250 MG TABS 1 po BID x 7 days CIPROFLOXACIN HCL 23134869211 No Longer Active Jennifer Crawford MICONAZOLE NITRATE POWD apply to affected areas TID for 7 days MICONAZOLE NITRATE 56632952424 No Longer Active Cassidy Del Rosario NYSTATIN 018299 UNIT/GM CREA apply to affected areas BID for 7 days NYSTATIN 71648368514 No Longer Active Cassidy Del Rosario ZITHROMAX Z-KOJO 250 MG TABS as directed AZITHROMYCIN 25322189023 No Longer Active Cassidy BRAVO NASAL SPRAY (DEXAMETHASONE, GENTAMICIN, SALINE) 2 puffs each nostril BID DR. BRAVO NASAL SPRAY (DEXAMETHASONE, GENTAMICIN, SALINE) No Longer Active Cassidy Del Rosario CHLORPHENIRAMINE MALEATE 4 MG TABS 1 PO Q6hrs prn for cold 03/25 CHLORPHENIRAMINE MALEATE 04153596878 No Longer Active Desmond Hackett FOLTX 2.5-25-2 MG TABS 1 PO QD FOLIC ACID-VIT B6-VIT B12 20474378136 Active Jennifer Crawford CALCIUM 500 MG TABS 1 PO BID CALCIUM 85808223969 No Longer Active Cassidy Del Rosario FULTEX 1 PO QD FULTEX No Longer Active Cassidy Del Rosario CWSOACTY-JETOYPGIX-USETFDZY 0.35-74384-3.1 OINT Apply to affected areas BID for 10 days EXOEWZJB-BRWBSLIOH-NWKMYYZV 96626987733 No Longer Active Cassidy Del Rosario FOSAMAX 70 MG TABS 1 tab 1x wkly ALENDRONATE SODIUM 61086552555 No Longer Active Cassidy Del Rosario STOOL SOFTENER 100 MG CAPS prn DOCUSATE SODIUM 15682964972 No Longer Active Cassidy MATHIS'Steven NASAL SPRAY (DEXAMETHASONE, GENTAMICIN, SALINE) 2 puffs TID 05/13 DR. MATHIS'Steven NASAL SPRAY (DEXAMETHASONE, GENTAMICIN, SALINE) No Longer Active Cassidy Del Rosario ZITHROMAX Z-KOJO 250 MG TABS as directed AZITHROMYCIN 55395456958 No Longer Active Cassidy Del Rosario ZITHROMAX Z-KOJO 250 MG TABS 2 the first day, then 1 x 4 days 2003 AZITHROMYCIN 58607168337 No Longer Active Cassidy Del Rosario AMOS LOW STRENGTH 81 MG TBEC 1 po daily ASPIRIN 27462405983 Active Cassidy Del Rosario LEVOXYL 75 MCG TABS 1 po daily LEVOTHYROXINE SODIUM 23123634378 Active Ghanshyam Taylor Immunizations Vaccine Administration Date [...] 10*3/mm3 Encounters Code Encounter Date Provider Facility CPT-75270 Ofc Vst, Est Level IV 13:31:32 LAY OUT FORMER Cassidy Del Rosario DO, FACP CPT-60881 Ofc Vst, Est Level III 12:51:00 CDT Cassidy Del Rosario DO, FACP CPT-23767 Ofc Vst, Est Level III 17:19:08 CDT Cassidy Del Rosario DO, FACP CPT-62093 Ofc Vst, Est Level III 10:22:49 CDT Cassidy Del Rosario DO, FACP CPT-92715 Ofc Vst, Est Level III 19:43:57 LAY OUT FORMER Cassidy Del Rosario DO, FACP CPT-91833 Ofc Vst, Est Level III 14:03:12 LAY OUT FORMER Cassidy Del Rosario DO, FACP CPT-11289 Ofc Vst, Est Level IV 13:10:01 LAY OUT FORMER Cassidy Harris Carin, DO, FACP CPT-12779 Ofc Vst, Est Level III 09:21:13 LAY OUT FORMER Cassidy Harris Carin, DO, FACP CPT-16258 Ofc Vst, Est Level IV 10:39:52 CDT Cassidy Candie Harris Carin, DO, FACP CPT-71472 Ofc Vst, Est Level III 15:20:46 CDT Cassidy Candie Harris Carin, DO, FACP CPT-06609 Ofc Vst, Est Level III 11:02:59 CDT Cassidy Candie Harris Carin, DO, FACP CPT-50849 Ofc Vst, Est Level IV 10:39:40 CDT Cassidy Candie Harris Carin, DO, FACP CPT-21235 Ofc Vst, Est Level IV 10:37:24 CDT Cassidy Candie Harris Carin, DO, FACP CPT-87827 Ofc Vst, Est Level IV 10:32:51 CDT Cassidy Candie Harris Carin, DO, FACP CPT-77251 Ofc Vst, Est Level IV 12:53:45 CDT Cassidy Candie Harris Carin DO, FACP CPT-75984 Ofc Vst, Est Level V 15:47:50 CDT Cassidywendy [facility] CPT-58885 Ofc Vst, Est Level IV 09:46:59 LAY OUT FORMER Cassidy Candie Harris Carin, DO, FACP CPT-34127 Ofc Vst, Est Level IV 11:28:13 CDT Cassidy Candie Harris Carin, DO, FACP CPT-59259 Ofc Vst, Est Level IV 09:26:22 LAY OUT FORMER Cassidy Candie Harris Del Rosario, DO, FACP CPT-33294 Ofc Vst, Est Level IV 09:58:11 CDT Cassidy Candie Carin Del Rosario, DO, FACP CPT-27726 Ofc Vst, Est Level IV 10:04:29 CDT Cassidy Candie Carin Del Rosario, DO, FACP CPT-71471 Ofc Vst, Est Level III 17:37:38 LAY OUT FORMER Cassidywendy Schreiber Carin Del Rosario, DO, FACP CPT-12697 Ofc Vst, Est Level IV 10:00:32 LAY OUT FORMER Cassidy Candieerika Del Rosario, DO, FACP CPT-21642 Ofc Vst, Est Level III 16:35:26 CDT Cassidy Candieerika Del Rosario, DO, FACP CPT-18783 Ofc Vst, Est Level IV 09:32:36 CDT Cassidy Candie Carin Del Rosario, DO, FACP CPT-88611 Ofc Vst, Est Level IV 10:53:32 CDT Cassidy Candieerika Del Rosario, DO, FACP CPT-07895 Ofc Vst, Est Level IV 10:01:21 CDT Cassidy Del Rosario [facility] CPT-12222 Ofc Vst, Est Level IV 11:19:41 CDT Cassidy Del Rosario [facility] CPT-90114 Ofc Vst, Est Level IV 14:42:04 LAY OUT FORMER Cassidy Del Rosario [facility] CPT-17527 Ofc Vst, Est Level III 11:37:20 CDT Cassidy Del Rosario [facility] CPT-70127 Ofc Vst, Est Level III 09:49:36 LAY OUT FORMER Cassidy Del Rosario [facility] CPT-79069 Ofc Vst, Est Level IV 09:45:40 LAY OUT FORMER Cassidy Del Rosario [facility] CPT-57150 Ofc Vst, Est Level IV 14:04:02 CDT Cassidy Candie Carin [facility] CPT-78104 Ofc Vst, Est Level III 17:26:04 LAY OUT FORMER Cassidy Perryanne Carin [facility] CPT-10096 Ofc Vst, Est Level IV 13:17:46 LAY OUT FORMER Cassidy Candie Cairn [facility] CPT-86225 Ofc Vst, Est Level III 12:34:19 CDT Cassidy Candie Carin [facility] CPT-93163 Ofc Vst, Est Level III 13:27:53 CDT Cassidy Candie Del Rosario [facility] Procedures Code Procedure Name Date Entry Date Standard Description CPT-G0439 Medicare Annual Wellness Visit 21:16:15 CDT CPT-G8443 E-Prescribing Medication Sent 19:43:57 LAY OUT FORMER CPT-G8445 E-Prescribing Not sent due to no medication given 12:16: 14 CDT CPT-G0439 Medicare Annual Wellness Visit 12:16:14 CDT CPT-G8445 E-Prescribing Not sent due to no medication given 14:03: 12 LAY OUT FORMER CPT-G8445 E-Prescribing Not sent due to no medication given 13:10: 01 LAY OUT FORMER CPT-G8443 E-Prescribing Medication Sent 09:21:13 LAY OUT FORMER CPT-24053 Tetanus vaccine, adsorbed, intramuscular 10:53:32 CDT CPT-45154 Injection, Pneumovax 10:53:32 CDT CPT-59694 Administration of 1st dose vaccine 10:53:32 CDT CPT-00646 Cryopathy Skin 14:04:02 CDT
--- OUTSIDE RECORDS SUMMARY | 2017-02-28 03:29 | XMS REPORT | Continuity of Care Document ---
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 09/24/2009 Ot 715.90 OSTEOARTHROS NOS-UNSPEC 09/24/2009 Ot 733.00 OSTEOPOROSIS NOS 08/11/2014 TORIE ARMSTRONG DO Ot V76.12 06/18/2015 Ot V76.12 06/18/2015 Ot 433.30 06/18/2015 Ot V76.12 06/18/2015 Ot 753.10 06/18/2015 Ot 789.00 06/18/2015 Ot 790.6 06/18/2015 Ot 733.90 06/18/2015 Ot V76.12 06/18/2015 TORIE ARMSTRONG DO Ot V76.12 06/18/2015 TORIE ARMSTRONG DO Ot 729.5 06/18/2015 TORIE ARMSTRONG DO Ot 782.3 06/18/2015 TORIE ARMSTRONG DO Ot 793.99 06/18/2015 NATHANIEL KOTHARI TORIE Ot V76.12 07/11/2015 TORIE ARMSTRONG DO Ot Z12.31 ENCNTR SCREEN MAMMOGRAM FOR MALIGNANT NE 08/14/2015 TORIE ARMSTRONG DO Ot M81.8 OTHER OSTEOPOROSIS WITHOUT CURRENT PATHO 08/14/2015 TORIE ARMSTRONG DO Ot M81.8 OTHER OSTEOPOROSIS WITHOUT CURRENT PATHO 08/30/2015 TORIE ARMSTRONG DO Ot M81.8 OTHER OSTEOPOROSIS WITHOUT CURRENT PATHO 08/31/2015 ARMSTRONG DO, TORIE Ot M81.8 OTHER OSTEOPOROSIS WITHOUT CURRENT PATHO 05/01/2016 Ot V76.12 OTH SCREEN MAMMO-MALIGN NEOPLASM OF DELVIN 05/01/2016 Ot 753.10 CYSTIC KIDNEY DISEASE, UNSPECIFIED 05/01/2016 Ot 789.00 ABDOMINAL PAIN, UNSPECIFIED SITE 05/01/2016 Ot 790.6 ABN BLOOD CHEMISTRY NEC 05/01/2016 Ot 733.90 BONE CARTILAGE DIS NOS 05/01/2016 Ot V76.12 OTH SCREEN MAMMO-MALIGN NEOPLASM OF DELVIN 05/01/2016 ARMSTRONG DO, TORIE Ot V76.12 OTH SCREEN MAMMO-MALIGN NEOPLASM OF DELVIN 05/01/2016 ARMSTRONG DO, TORIE Ot 729.5 PAIN IN LIMB 05/01/2016 ARMSTRONG DO, TORIE Ot 782.3 EDEMA 05/01/2016 ARMSTRONG DO, TORIE Ot 793.99 OTH NOSP (ABN) FINDINGS RADIOLOGICAL O 05/01/2016 ARMSTRONG DO, TORIE Ot V76.12 OTH SCREEN MAMMO-MALIGN NEOPLASM OF DELVIN 05/01/2016 ARMSTRONG DO, TORIE Ot Z12.31 ENCNTR SCREEN MAMMOGRAM FOR MALIGNANT NE 05/01/2016 ARMSTRONG DO, TORIE Ot M81.8 OTHER OSTEOPOROSIS WITHOUT CURRENT PATHO 05/01/2016 TANIYA DO, MAGUI K Ot I10 ESSENTIAL (PRIMARY) HYPERTENSION 05/01/2016 TANIYA KOTHARI, MAGUI K Ot K59.00 CONSTIPATION, UNSPECIFIED 05/01/2016 TANIYA DO, MAGUI K Ot K62.89 OTHER SPECIFIED DISEASES OF ANUS AND REC 05/01/2016 TANIYA KOTHARI MAGUI K Ot 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 05/01/2016 TANIYA KOTHARI, MAGUI K Ot Z79.899 OTHER FPC (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 THERAPY 05/02/2016 TANIYA DO, MAGUI K Ot I10 ESSENTIAL (PRIMARY) HYPERTENSION 05/02/2016 TANIYA DO, MAGUI K Ot K59.00 CONSTIPATION, UNSPECIFIED 05/02/2016 TANIYA DO, MAGUI K Ot K62.89 OTHER SPECIFIED DISEASES OF ANUS AND REC 05/02/2016 TANIYA DO MAGUI K Ot 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 05/02/2016 TANIYA DO, MAGUI K Ot Z79.899 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 05/07/2016 MAGUI MONAHAN DO Ot I10 ESSENTIAL (PRIMARY) HYPERTENSION 05/07/2016 MAGUI MONAHAN DO Ot K59.00 CONSTIPATION, UNSPECIFIED 05/07/2016 MAGUI MONAHAN DO Ot K62.89 OTHER SPECIFIED DISEASES OF ANUS AND REC 05/07/2016 MAGUI MONAHAN DO Ot 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 05/07/2016 MAGUI MONAHAN DO Ot Z79.899 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 05/14/2016 MAGUI MONAHAN DO Ot K59.00 CONSTIPATION, UNSPECIFIED 06/19/2016 Ot V76.12 OTH SCREEN MAMMO-MALIGN NEOPLASM OF DELVIN 06/19/2016 Ot 753.10 CYSTIC KIDNEY DISEASE, UNSPECIFIED 06/19/2016 Ot 789.00 ABDOMINAL PAIN, UNSPECIFIED SITE 06/19/2016 Ot 790.6 ABN BLOOD CHEMISTRY NEC 06/19/2016 Ot 733.90 BONE CARTILAGE DIS NOS 06/19/2016 Ot V76.12 OTH SCREEN MAMMO-MALIGN NEOPLASM OF DELVIN 06/19/2016 NATHANIEL KOTHARI TORIE Ot V76.12 OTH SCREEN MAMMO-MALIGN NEOPLASM OF DELVIN 06/19/2016 KATERIN ARMSTRONG DOI Ot 729.5 PAIN IN LIMB 06/19/2016 NATHANIEL KOTHARI TORIE Ot 782.3 EDEMA 06/19/2016 NATHANIEL KOTHARI TORIE Ot 793.99 OTH NOSP (ABN) FINDINGS RADIOLOGICAL O 06/19/2016 NATHANIEL KOTHARI TORIE Ot V76.12 OTH SCREEN MAMMO-MALIGN NEOPLASM OF DELVIN 06/19/2016 KATERIN ARMSTRONG DOI Ot Z12.31 ENCNTR SCREEN MAMMOGRAM FOR MALIGNANT NE 06/19/2016 TORIE ARMSTRONG DO Ot M81.8 OTHER OSTEOPOROSIS WITHOUT CURRENT PATHO 06/19/2016 MAGUI MONAHAN DO Ot K59.00 CONSTIPATION, UNSPECIFIED 06/19/2016 NATHANIEL KOTHARI TORIE Ot 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 06/19/2016 NATHANIEL KOTHARI TORIE Ot Z12.31 ENCNTR SCREEN MAMMOGRAM FOR MALIGNANT NE 06/19/2016 TORIE ARMSTRONG DO Ot 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 06/19/2016 TORIE ARMSTRONG DO Ot Z12.31 ENCNTR SCREEN MAMMOGRAM FOR MALIGNANT NE 06/20/2016 TORIE ARMSTRONG DO Ot 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 06/20/2016 NATHANIEL KOTHARI TORIE Ot Z12.31 ENCNTR SCREEN MAMMOGRAM FOR MALIGNANT NE 07/15/2016 TORIE ARMSTRONG DO Ot 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 07/15/2016 NATHANIEL KOTHARI TORIE Ot Z12.31 ENCNTR SCREEN MAMMOGRAM FOR MALIGNANT NE 07/18/2016 NATHANIEL KOTHARI TORIE Ot 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 07/18/2016 KATERIN ARMSTRONG DOI Ot Z12.31 ENCNTR SCREEN MAMMOGRAM FOR MALIGNANT NE 12/29/2016 Ot 753.10 CYSTIC KIDNEY DISEASE, UNSPECIFIED 12/29/2016 Ot 789.00 ABDOMINAL PAIN, UNSPECIFIED SITE 12/29/2016 Ot 790.6 ABN BLOOD CHEMISTRY NEC 12/29/2016 Ot 733.90 BONE CARTILAGE DIS NOS 12/29/2016 Ot V76.12 OTH SCREEN MAMMO-MALIGN NEOPLASM OF DELVIN 12/29/2016 NATHANIEL KOTHARI TORIE Ot V76.12 OTH SCREEN MAMMO-MALIGN NEOPLASM OF DELVIN 12/29/2016 KATERIN ARMSTRONG DOI Ot 729.5 PAIN IN LIMB 12/29/2016 NATHANIEL KOTHARI TORIE Ot 782.3 EDEMA 12/29/2016 NATHANIEL KOTHARI TORIE Ot 793.99 OTH NOSP (ABN) FINDINGS RADIOLOGICAL O 12/29/2016 TORIE ARMSTRONG DO Ot V76.12 OTH SCREEN MAMMO-MALIGN NEOPLASM OF DELVIN 12/29/2016 TORIE ARMSTRONG DO Ot Z12.31 ENCNTR SCREEN MAMMOGRAM FOR MALIGNANT NE 12/29/2016 TORIE ARMSTRONG DO Ot M81.8 OTHER OSTEOPOROSIS WITHOUT CURRENT PATHO 12/29/2016 TANIYA DO MAGUI K Ot K59.00 CONSTIPATION, UNSPECIFIED 12/29/2016 NATHANIEL KOTHARI TORIE Ot 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 Visit Date/Time Discharge Status Pt. Type Provider Facility Loc./Unit Complaint [id number] 12/30/2016 13:31:00 2016 23:59:59 CLS Outpatient ARMSTRONG DO, TORIE [facility] RAD I65.29 [id number] 06/19/2016 13:07:00 2016 23:59:59 CLS Outpatient ARMSTRONG DO, TORIE [facility] RAD SCREENING,I65.29,I65.23 [id number] 05/01/2016 05:43:00 2016 23:59:59 CLS Outpatient MAGUI MONAHAN DO [facility] 4THo CONSTIPATION [id number] 05/01/2016 03:12:00 2016 05:48:00 DIS Emergency MAGUI MONAHAN DO [facility] ER CONSTIPATION [id number] 08/13/2015 12:09:00 2015 23:59:59 CLS Outpatient ARMSTRONG DO, TORIE [facility] RAD OTHER OSTEOPOROSIS W/O FRACTURE [id number] 06/18/2015 09:22:00 2015 23:59:59 CLS Outpatient ARMSTRONG DO, TORIE [facility] RAD SCREENING [id number] 06/14/2014 08:27:00 2014 23:59:59 CLS Outpatient ARMSTRONG DO, TORIE [facility] RAD SCREENING [id number] 09/06/2013 10:37:00 2013 23:59:59 CLS Outpatient ARMSTRONG DO, TORIE [facility] RAD RT LEG PAIN,EDEMA [id number] 06/09/2013 08:35:00 2013 23:59:59 CLS Outpatient ARMSTRONG TORIE [facility] RAD SCREENING [id number] 02/28/2017 03:19:00 ACT Emergency KAMARI MONAHAN DOA Charlie [facility] ER CONSTIPATED [id number] 06/08/2012 08:35:00 Document Registration [id number] 04/09/2012 11:02:00 Document Registration [id number] 02/17/2012 07:22:00 Document Registration [id number] 05/22/2011 10:23:00 Document Registration [id number] 08/13/2010 13:42:00 Document Registration [id number] 05/14/2010 09:21:00 Document Registration [id number] 09/21/2009 16:24:00 Document Registration
--- NOTE | 2017-02-28 04:29 | ED GI ---
General Chief Complaint: Abdominal/GI Problems Stated Complaint: CONSTIPATED Source of Information: Patient History of Present Illness Time Seen By Provider: 03:30 Initial Comments PT ARRIVES VIA POV FROM HOME C/O CONSTIPATION HAS CHRONIC CONSTIPATION AND TAKES MIRALAX DAILY, BUT DIDN'T TAKE IT FOR A COUPLE OF DAYS, BECAUSE SHE THOUGHT SHE DIDN'T NEED TO TAKE IT ANYMORE, AND WOULD JUST TRY DRINKING PRUNE JUICE LAST BM WAS ON Thursday02/23/[address] ARMSTRONG ON THURSDAY AND WAS TOLD TO USE SOAP SUDS ENEMAS AND RESTART MIRALAX AND TAKE LACTULOSE USED SOAP SUDS ENEMA ON THURSDAY WITH GOOD RESULTS, BUT HAS NOT HAD BM SINCE PT HAS NOT TRIED ANY OTHER ENEMAS OR SUPPOSITORIES, ETC. PT TOOK LACTULOSE AT 2100 THIS EVENING NO ABDOMINAL PAIN OR RECTAL PAIN/PRESSURE ONLY C/O PAIN TO RIGHT SI JOINT AREA WITH MOVEMENT OF RIGHT LEG. HAS HAD BEFORE NO URINARY SYMPTOMS NO NAUSEA/VOMITING OR CHANGE IN APPETITE--HAS BEEN EATING AND DRINKING USUAL PCP: DR. ARMSTRONG Allergies and Home Medications Allergies Coded Allergies: No Known Drug Allergies (Verified Allergy, Unknown, 02/24/08) Home Medications Alendronate Sodium 70 Mg Tab, 70 MG PO Th@06, (Reported) Aspirin 81 Mg Tabec, 81 MG PO DAILY, (Reported) Calcium Carbonate/Vitamin D3 1 Each Tablet, 1 EACH PO BID, (Reported) Cyanocobalamin/Fa/Pyridoxine 1 Tab Tablet, 1 TAB PO DAILY, (Reported) Ezetimibe 10 Mg Tablet, 10 MG PO DAILY, (Reported) Gemfibrozil 600 Mg Tablet, 1 EACH PO BID, (Reported) Levothyroxine Sodium 75 Mcg Tablet, 75 MCG PO DAILY, (Reported) [place]-3 Fatty Acids/Fish Oil 1 Each Capsule, 1 EACH PO BID, (Reported) Review of Systems Constitutional: no symptoms reported Respiratory: No Symptoms Reported Cardiovascular: No Symptoms Reported Gastrointestinal: See HPI, Denies Abdomen Distended, Denies Abdominal Pain, Constipated, Denies Nausea, Denies Vomiting Genitourinary: No Symptoms Reported Musculoskeletal: see HPI Skin: no symptoms reported Psychiatric/Neurological: No Symptoms Reported Endocrine: No Symptoms Reported Past Zdysylt-Yeleap-Uxzbhp Hx Patient Social History Alcohol Use: Denies Use Recreational Drug Use: No Smoking Status: Never a Smoker 2nd Hand Smoke Exposure: No Recent Foreign Travel: No Contact w/Someone Who Travel: No Recent Hopitalizations: Yes Surgeries History of Surgeries: Yes Surgeries: Bladder Surgery, Gallbladder, Hysterectomy, Joint Replacement, Orthopedic, Tonsillectomy Respiratory History of Respiratory Disorde: No Cardiovascular History of Cardiac Disorders: Yes Cardiac Disorders: Hypertension Neurological History of Neurological Disord: No Reproductive System Hx Reproductive Disorders: No Sexually Transmitted Disease: No Genitourinary History of Genitourinary Disor: No Gastrointestinal History of Gastrointestinal Di: Yes Gastrointestinal Disorders: Chronic Constipation Musculoskeletal History of Musculoskeletal Dis: Yes Musculoskeletal Disorders: Arthritis Endocrine History of Endocrine Disorders: Yes Endocrine Disorders: Hypothyroidsim HEENT History of HEENT Disorders: Yes HEENT Disorders: Cataract Cancer History of Cancer: No Psychosocial History of Psychiatric Problem: No Integumentary History of Skin or Integumenta: No Blood Transfusions History of Blood Disorders: No Physical Exam Vital Signs Capillary Refill : General Appearance: WD/WN, no apparent distress, other (SMILING, VERY TALKATIVE , WELL-GROOMED. 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, no motor/sensory deficits, alert, normal mood/affect, oriented x 3 Skin: normal color, warm/dry, No rash Progress/Results/Core Measures Results/Orders My Orders Orders - MAGUI MONAHAN DO Abdomen, Flat & Upright/Decub (02/28/17 03:36) Magnesium Citrate Oral Soln (Citrate Of (02/28/17 04:30) Bisacodyl Suppository (Dulcolax Supposit (02/28/17 04:30) Mineral Oil Enema (Fleet Oil Enema) (02/28/17 05:30) Na Phos/Na Biphos Enema (Fleet Enema Chavez (02/28/17 05:29) Na Phos/Na Biphos Enema (Fleet Enema Chavez (02/28/17 05:45) Na Phos/Na Biphos Enema (Fleet Enema Chavez (02/28/17 05:36) Medications Given in ED Current Medications Medications Dose Ordered Sig/Anival Route Start Time Stop Time Status Last Admin Dose Admin Bisacodyl 10 mg ONCE ONCE [place] 02/28/17 04:30 02/28/17 04:31 DC 02/28/17 04:40 10 MG Magnesium Citrate 300 ml ONCE ONCE PO 02/28/17 04:30 02/28/17 04:31 DC 02/28/17 04:40 300 ML Sodium Biphosphate/ Sodium Phosphate 1 ea ONCE ONCE NJ 02/28/17 05:45 02/28/17 05:46 DC 02/28/17 05:42 1 EA Progress Note : Progress Note SOME MILD RESULTS WITH DULCOLAX SUPPOSITORY AND FLEET'S ENEMA. Diagnostic Imaging Comments ABDOMINAL XRAYS--CONSTIPATION, NO OBSTRUCTION OR FREE AIR, PENDING RADIOLOGIST REVIEW Reviewed: Reviewed by Me Departure Impression Impression: Primary Impression: Constipation Disposition: 01 HOME, SELF-CARE Condition: Stable Departure-Patient Inst. Referrals: TORIE ARMSTRONG DO (PCP/Family) Primary Care Physician Patient Instructions: Constipation, Adult (DC) Add. Discharge Instructions: INCREASE YOUR WATER AND FIBER INTAKE TAKE MIRALAX AND LACTULOSE EVERY 4 HOURS, UNTIL YOU HAVE CLEAR STOOLS, THEN DECREASE TO ONCE A DAY USE DULCOLAX SUPPOSITORIES AND SOAP SUDS ENEMAS UNTIL YOU HAVE CLEAR STOOLS FOLLOW UP WITH DR. ARMSTRONG ON THURSDAY IF NO BETTER All discharge instructions reviewed with patient and/or family. Voiced understanding. MAGUI MONAHAN DO Feb 28, 2017 04:29
[2017-02-28] MEDS ORDERED: BISACODYL 10 MG SUPP (DULCOLAX) PR ONE (04:30)
[2017-02-28] MEDS ORDERED: MAGNESIUM CITRATE 300 ML BTL PO ONE (04:30)
[2017-02-28] MEDS ORDERED: FLEET ENEMA ADULT 1 EA BTL ONE ×2 (05:29→05:36)
[2017-02-28] MEDS ORDERED: MINERAL OIL ENEMA 133 ML BTL PR ONE (05:30)
[2017-02-28] MEDS ORDERED: FLEET ENEMA ADULT 1 EA BTL PR ONE (05:45)
[2017-02-28 06:18] VITALS: BP 145/80
--- NOTE | 2017-02-28 07:12 | Diagnostic Imaging Report ---
EXAMINATION: Abdominal radiographs, upright and supine views. DATE: 02/28/2017. CLINICAL INDICATION: 86-year-old female, constipation. COMPARISON: 05/01/2016. COMMENTS: There is a mild to moderate volume stool in the left colon. There are no abnormally distended gas-filled segments of bowel. There is no identified free intraperitoneal air. There is no identified pneumatosis or portal venous gas. The bones appear demineralized. There are degenerative changes of the spine. Right upper quadrant surgical clips likely relate to prior cholecystectomy. IMPRESSION: 1. Moderate volume stool in the left colon. 2. No radiographically apparent acute abdominal abnormality. Dictated by: Dictated on workstation # [id number]
== END 2017-02-28 06:18 | disposition home or self-care (01) ==
LOC: EDUNIT# 03:17 → ER 03:19
DX: K59.00 Constipation, unspecified (principal); E03.9 Hypothyroidism, unspecified; I10 Essential (primary) hypertension; Z90.89 Acquired absence of other organs; Z79.82 Long term (current) use of aspirin; Z90.710 Acquired absence of both cervix and uterus; Z96.60 Presence of unspecified orthopedic joint implant
CPT/HCPCS: 74020; 99283

== ENCOUNTER 2017-03-05 13:45 | Day surgery (SDC) | payer MEDICARE ==
[~2017-03-05] VITALS: Ht 147.3 cm; Wt 56.9 kg
[2017-03-05] MEDS ORDERED: LOSA50TA36 PO (13:56)
[2017-03-05] MEDS ORDERED: LEVO75TA6 PO (13:56)
[2017-03-05] MEDS ORDERED: AMLO5TAB2 PO (13:56)
--- OUTSIDE RECORDS SUMMARY | 2017-03-05 13:59 | XMS REPORT | Continuity of Care Document ---
Author Author [facility] Organization [facility] Address Unknown Phone Unavailable Allergies Active Description Code Type Severity Reaction Onset Reported/Identified Relationship to Patient Clinical Status Yes No Known Drug Allergies [id number] Drug Allergy Unknown N/A 02/24/2008 Medications There is no data. Problems Date Dx Coded Attending Type Code [...] 06/18/2015 TORIE ARMSTRONG DO Ot 793.99 06/18/2015 TORIE ARMSTRONG DO Ot V76.12 07/11/2015 TORIE ARMSTRONG DO Ot Z12.31 ENCNTR SCREEN MAMMOGRAM FOR MALIGNANT NE 08/14/2015 TORIE ARMSTRONG DO Ot M81.8 OTHER OSTEOPOROSIS WITHOUT CURRENT PATHO 08/14/2015 TORIE ARMSTRONG DO Ot M81.8 OTHER OSTEOPOROSIS WITHOUT CURRENT PATHO 08/30/2015 TORIE ARMSTRONG DO Ot M81.8 OTHER OSTEOPOROSIS WITHOUT CURRENT PATHO 08/31/2015 NATHANIEL KOTHARI, TORIE Ot M81.8 OTHER OSTEOPOROSIS WITHOUT CURRENT [...] TORIE Ot 729.5 PAIN IN LIMB 05/01/2016 ARSMTRONG DO, TORIE Ot 782.3 EDEMA 05/01/2016 ARMSTRONG DO, TORIE Ot 793.99 OTH NOSP (ABN) FINDINGS RADIOLOGICAL O 05/01/2016 ARMSTRONG DO, TORIE Ot V76.12 OTH SCREEN MAMMO-MALIGN NEOPLASM OF DELVIN 05/01/2016 ARMSTRONG DO, TORIE Ot Z12.31 ENCNTR SCREEN MAMMOGRAM FOR MALIGNANT NE 05/01/2016 NATHANIEL KOTHARI, TORIE Ot M81.8 OTHER OSTEOPOROSIS WITHOUT CURRENT PATHO 05/01/2016 TANIYA DO MAGUI K Ot I10 ESSENTIAL (PRIMARY) HYPERTENSION 05/01/2016 TANIYA DO MAGUI K Ot K59.00 CONSTIPATION, UNSPECIFIED 05/01/2016 TANIYA DO, MAGUI K Ot K62.89 OTHER SPECIFIED DISEASES OF ANUS AND REC 05/01/2016 TANIYA DO MAGUI K Ot Z79.82 [facility] (CURRENT) USE OF ASPIRIN 05/01/2016 TANIYA DO, MAGUI K Ot Z79.899 OTHER [facility] (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 THERAPY 05/02/2016 TANIYA DO, MAGUI K Ot I10 ESSENTIAL (PRIMARY) HYPERTENSION 05/02/2016 TANIYA DO, MAGUI K Ot K59.00 CONSTIPATION, UNSPECIFIED 05/02/2016 TANIYA DO, MAGUI K Ot K62.89 OTHER SPECIFIED DISEASES OF ANUS AND REC 05/02/2016 TANIYA DO MAGUI K Ot Z79.82 [facility] (CURRENT) USE OF ASPIRIN 05/02/2016 MAGUI MONAHAN DO Ot Z79.899 OTHER [facility] (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 THERAPY 05/07/2016 MAGUI MONAHAN DO Ot I10 ESSENTIAL (PRIMARY) HYPERTENSION 05/07/2016 MAGUI MONAHAN DO Ot K59.00 CONSTIPATION, UNSPECIFIED 05/07/2016 MAGUI MONAHAN DO Ot K62.89 OTHER SPECIFIED DISEASES OF ANUS AND REC 05/07/2016 MAGUI MONAHAN DO Ot Z79.82 [facility] (CURRENT) USE OF ASPIRIN 05/07/2016 MAGUI MONAHAN DO Ot Z79.899 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 (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 THERAPY 05/14/2016 MAGUI MONAHAN DO Ot K59.00 CONSTIPATION, UNSPECIFIED 06/19/2016 Ot V76.12 OTH SCREEN MAMMO-MALIGN NEOPLASM OF DELVIN 06/19/2016 Ot 753.10 CYSTIC KIDNEY DISEASE, UNSPECIFIED 06/19/2016 Ot 789.00 ABDOMINAL PAIN, UNSPECIFIED SITE 06/19/2016 Ot 790.6 ABN BLOOD CHEMISTRY NEC 06/19/2016 Ot 733.90 BONE CARTILAGE DIS NOS 06/19/2016 Ot V76.12 OTH SCREEN MAMMO-MALIGN NEOPLASM OF DELVIN 06/19/2016 ARMSTRONGMARIA ESTHER KOTHARI TORIE Ot V76.12 OTH SCREEN MAMMO-MALIGN NEOPLASM OF DELVIN 06/19/2016 KATERIN ARMSTRONG DOI Ot 729.5 PAIN IN LIMB 06/19/2016 NATHANIEL KOTHARI TORIE Ot 782.3 EDEMA 06/19/2016 NATHANIEL KOTHARI TORIE Ot 793.99 OTH NOSP (ABN) FINDINGS RADIOLOGICAL O 06/19/2016 KATERIN ARMSTRONG DOI Ot V76.12 OTH SCREEN MAMMO-MALIGN NEOPLASM OF DELVIN 06/19/2016 KATERIN ARMSTRONG DOI Ot Z12.31 ENCNTR SCREEN MAMMOGRAM FOR MALIGNANT NE 06/19/2016 TORIE ARMSTRONG DO Ot M81.8 OTHER OSTEOPOROSIS WITHOUT CURRENT PATHO 06/19/2016 MAGUI MONAHAN DO Ot K59.00 CONSTIPATION, UNSPECIFIED 06/19/2016 KATERIN ARMSTRONG DOI Ot 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 06/19/2016 TORIE ARMSTRONG DO Ot Z12.31 ENCNTR SCREEN MAMMOGRAM FOR MALIGNANT NE 06/19/2016 ARMSTRONG DO, TORIE Ot 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 06/19/2016 KATERIN ARMSTRONG DOI Ot Z12.31 ENCNTR SCREEN MAMMOGRAM FOR MALIGNANT NE 06/20/2016 KATERIN ARMSTRONG DOI Ot 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 06/20/2016 NATHANIEL DO TORIE Ot Z12.31 ENCNTR SCREEN MAMMOGRAM FOR MALIGNANT NE 07/15/2016 TORIE ARMSTRONG DO Ot 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 07/15/2016 KATERIN ARMSTRONG DOI Ot Z12.31 ENCNTR SCREEN [...] OF DELVIN 12/29/2016 KATERIN ARMSTRONG DOI Ot Z12.31 ENCNTR SCREEN MAMMOGRAM FOR MALIGNANT NE 12/29/2016 TORIE ARMSTRONG DO Ot M81.8 OTHER OSTEOPOROSIS WITHOUT CURRENT PATHO 12/29/2016 TANIYA DO MAGUI K Ot K59.00 CONSTIPATION, UNSPECIFIED 12/29/2016 KATERIN ARMSTRONG DOI Ot I65.23 OCCLUSION AND STENOSIS OF BILATERAL [...] 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 03/02/2017 TANIYA KOTHARI MAGUI Charlie Ot E03.9 HYPOTHYROIDISM, UNSPECIFIED 03/02/2017 TANIYA MAGUI Charlie Ot I10 ESSENTIAL (PRIMARY) HYPERTENSION 03/02/2017 TANIYA MAGUI Charlie Ot K59.00 CONSTIPATION, UNSPECIFIED 03/02/2017 TANIYA DO MAGUI K Ot Z79.82 [facility] (CURRENT) USE OF ASPIRIN 03/02/2017 TANIYA MAGUI Charlie Ot Z90.710 ACQUIRED ABSENCE OF BOTH CERVIX AND UTER 03/02/2017 TANIYA MAGUI Charlie Ot Z90.89 ACQUIRED ABSENCE OF OTHER ORGANS 03/02/2017 TANIYA KOTHARI MAGUI Charlie Ot 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 Procedures Code Description Performed By Performed On 53.61 OTHER OPEN INCISIONAL HERNIA REPAIR WITH 09/22/2009 Results There is no data. Encounters ACCT No. Visit Date/Time Discharge Status Pt. Type Provider Facility Loc./Unit Complaint [id number] 02/28/2017 03:19:00 02/28/2017 06:18:00 DIS Outpatient MAGUI MONAHAN DO [facility] ER CONSTIPATED [id number] 12/30/2016 13:31:00 12/30/2016 23:59:59 CLS Outpatient NATHANIEL KOTHARI TORIE [facility] RAD I65.29 [id number] 06/19/2016 13:07:00 06/19/2016 23:59:59 CLS Outpatient NATHANIEL KOTHARI TORIE [facility] RAD SCREENING,I65.29,I65.23 [id number] 05/01/2016 05:43:00 05/01/2016 23:59:59 CLS Outpatient TANIYA KOTHARI MAGUI K [facility] 4THo CONSTIPATION [id number] 05/01/2016 03:12:00 05/01/2016 05:48:00 DIS Emergency MAGUI MONAHAN DO [facility] ER CONSTIPATION [id number] 08/13/2015 12:09:00 08/13/2015 23:59:59 CLS Outpatient ARMSTRONG DO, TORIE [facility] RAD OTHER OSTEOPOROSIS W/O FRACTURE [id number] 06/18/2015 09:22:00 06/18/2015 23:59:59 CLS Outpatient ARMSTRONG DO, TORIE [facility] RAD SCREENING [id number] 06/14/2014 08:27:00 06/14/2014 23:59:59 CLS Outpatient ARMSTRONG DO, TORIE [facility] RAD SCREENING [id number] 09/06/2013 10:37:00 09/06/2013 23:59:59 CLS Outpatient ARMSTRONG DO, TORIE [facility] RAD RT LEG PAIN,EDEMA [id number] 06/09/2013 08:35:00 06/09/2013 23:59:59 CLS Outpatient ARMSTRONG DO, TORIE [facility] RAD SCREENING [id number] 03/05/2017 13:45:00 ACT Inpatient ARMSTRONG DO, TORIE [facility] 4TH ABDOMINAL PAIN [id number] 06/08/2012 08:35:00 Document Registration [id number] 04/09/2012 11:02:00 Document Registration [id number] 02/17/2012 07:22:00 Document Registration [id number] 05/22/2011 10:23:00 Document Registration [id number] 08/13/2010 13:42:00 Document Registration [id number] 05/14/2010 09:21:00 Document Registration [id number] 09/21/2009 16:24:00 Document Registration
[2017-03-05 14:00] VITALS: BP 150/68
[2017-03-05] MEDS ORDERED: ASPI-983 PO (14:01)
[2017-03-05] MEDS ORDERED: CYAN1TAB16 PO (14:01)
[2017-03-05] MEDS ORDERED: OMEG-77 PO (14:01)
[2017-03-05] MEDS ORDERED: CALC-901 PO (14:01)
[2017-03-05] MEDS ORDERED: ONDANSETRON 4 MG/2 ML (SDV) Z0FRAN IVP PRN (14:15)
[2017-03-05] MEDS ORDERED: fentaNYL INJECTION 100 MCG/2 ML AMP IVP PRN (14:15)
[2017-03-05] MEDS: NS IV 1000 ML 1,000 ML IV SCH (14:26)
[2017-03-05 14:29] LABS: BASOPHILS % (AUTO) 0 % (0-10); EOSINOPHILS # (AUTO) 0.1 10^3/uL (0.0-0.3); EOSINOPHILS % (AUTO) 1 % (0-10); LYMPHOCYTES % (AUTO) 13 % (12-44); MEAN CORPUSCULAR HEMOGLOBIN 31 PG (25-34); MEAN CORPUSCULAR HGB CONC 34 G/DL (32-36); MEAN CORPUSCULAR VOLUME 93 FL (80-99); MEAN PLATELET VOLUME 8.8 FL (7.4-10.4); MONOCYTES % (AUTO) 14 % (0-12); NEUTROPHILS # (AUTO) 5.2 X 10^3 (1.8-7.8); NEUTROPHILS % (AUTO) 72 % (42-75); PLATELET COUNT 216 10^3/uL (130-400); RED BLOOD COUNT 4.11 10^6/uL (4.35-5.85); WHITE BLOOD COUNT 7.3 10^3/uL (4.3-11.0)
[2017-03-05 14:53] LABS: ALANINE AMINOTRANSFERASE 20 U/L (0-55); ALBUMIN 3.7 GM/DL (3.2-4.5); ANION GAP 7 MMOL/L (5-14); ASPARTATE AMINO TRANSFERASE 18 U/L (5-34); BILIRUBIN,TOTAL 0.7 MG/DL (0.1-1.0); BLOOD UREA NITROGEN 14 MG/DL (7-18); BUN/CREATININE RATIO 17; CARBON DIOXIDE 29 MMOL/L (21-32); CHLORIDE 102 MMOL/L (98-107); CREATININE SERUM 0.82 MG/DL (0.60-1.30); GFR ESTIMATED > 60; GLUCOSE 151 MG/DL (70-105); POTASSIUM 4.1 MMOL/L (3.6-5.0); SODIUM 138 MMOL/L (135-145); TOTAL PROTEIN 6.8 GM/DL (6.4-8.2)
[2017-03-05] MEDS ORDERED: IOHEXOL 350 MG/ML 100 ML (OMNIPAQUE 350) VIAL IV ONE (15:00)
[2017-03-05] MEDS ORDERED: CATHETER FLUSH 10 ML SYR IV PRN (15:00)
[2017-03-05] MEDS ORDERED: NS 100 ML (IVPB) BAG IV ONE (15:00)
--- NOTE | 2017-03-05 16:01 | Diagnostic Imaging Report ---
PROCEDURE: CT abdomen and pelvis with contrast. TECHNIQUE: Multiple contiguous axial images were obtained through the abdomen and pelvis after administration of intravenous contrast. INDICATION: Abdominal pain. 100 mL of Omnipaque 350 is administered intravenously. FINDINGS: There is minimal bibasilar atelectasis. The liver, the spleen, the adrenal glands, and the pancreas appear unremarkable. Cholecystectomy clips are seen. The kidneys have symmetric enhancement and contrast excretion. No hydronephrosis. There are numerous bilateral renal cysts with no solid component seen up to 6.2 cm in the lower pole of the right kidney. The abdominal aorta is tortuous with no aneurysm seen. No para-aortic significantly enlarged lymph node is noted. The urinary bladder appears unremarkable. There is diverticulosis. No diverticulitis. There is no bowel obstruction. Moderate amount of fecal material in the colon, however, is seen. No significant free fluid or fluid collection in the abdomen or pelvis is seen. There is a suggestion of prior hysterectomy. The osseous structures demonstrate prominent degenerative changes in the lumbar spine and SI joints. IMPRESSION: 1. Numerous bilateral renal cysts. No hydronephrosis or solid mass. 2. Diverticulosis. No evidence of diverticulitis. Dictated by: Dictated on workstation # [id number]
[2017-03-05] MEDS ORDERED: GOLYTELY POWDER 4000 ML BTL PO NR (16:15)
--- NOTE | 2017-03-05 16:16 | Consultation ---
History of Present Illness History of Present Illness Patient Consulted On(wolf/time) 03/05/17 16:11 Date Seen by Provider: Mar 05, 2017 Time Seen by Provider: 16:12 History of Present Illness Consult requested by Dr. Del Rosario for abdominal pain.. Patient is an 86 year old female who states she's been having a difficulty with some abdominal pain that seems to be more around the lower back. She states its just an uncomfortable feeling. She states low intensity. Nothing seems to make better and nothing making it worse. She also is having difficulty with having bowel movements. She has tried enema's, miralax and lactulose and not getting much results. She states she has small pebble like stools. She denies any blood in her stools. Patient had a ct scan that demonstrates diverticulosis , renal cysts and appears to have quite a bit of stool in the colon. She denies any fever, sweats chills shortness of breath or chest pain at this time. Allergies and Home Medications Allergies Coded Allergies: No Known Drug Allergies (Verified , 02/24/08) Home Medications Amlodipine Besylate 5 Mg Tablet, 5 MG PO DAILY, (Reported) Aspirin 81 Mg Tablet.dr, 81 MG PO DAILY, (Reported) Calcium Carbonate/Vitamin D3 1 Each Tablet, 1 TAB PO DAILY, (Reported) Cyanocobalamin/FA/Pyridoxine 1 Each Tablet, 1 TAB PO DAILY, (Reported) Levothyroxine Sodium 75 Mcg Tablet, 75 MCG PO DAILY, (Reported) Losartan Potassium 50 Mg Tablet, 50 MG PO DAILY, (Reported) [place]-3 Fatty Acids/Fish Oil 1 Each Capsule, 1,000 MG PO DAILY, (Reported) Past Gmgjimk-Yzjkeg-Zymuvk Hx Patient Social History Alcohol Use: Denies Use Recreational Drug Use: No Smoking Status: Never a Smoker 2nd Hand Smoke Exposure: No Recent Hopitalizations: No Surgeries History of Surgeries: Yes Surgeries: Bladder Surgery, Gallbladder, Hysterectomy, Joint Replacement, Orthopedic, Tonsillectomy Respiratory History of Respiratory Disorde: No Cardiovascular History of Cardiac Disorders: Yes Cardiac Disorders: Hypertension Neurological History of Neurological Disord: No Reproductive System Hx Reproductive Disorders: No Sexually Transmitted Disease: No Genitourinary History of Genitourinary Disor: No Gastrointestinal History of Gastrointestinal Di: Yes Gastrointestinal Disorders: Chronic Constipation Musculoskeletal History of Musculoskeletal Dis: Yes Musculoskeletal Disorders: Arthritis Endocrine History of Endocrine Disorders: Yes Endocrine Disorders: Hypothyroidsim HEENT History of HEENT Disorders: Yes HEENT Disorders: Cataract Cancer History of Cancer: No Psychosocial History of Psychiatric Problem: No Integumentary History of Skin or Integumenta: No Blood Transfusions History of Blood Disorders: No Family Medical History Significant Family History: No Pertinent Family Hx Review of Systems-General Constitutional: no symptoms reported EENTM: no symptoms reported Respiratory: no symptoms reported Cardiovascular: no symptoms reported Gastrointestinal: see HPI, constipation Genitourinary: no symptoms reported Musculoskeletal: back pain Skin: no symptoms reported Psychiatric/Neurological: No Symptoms Reported Physical Exam-General Problems Physical Exam Vital Signs Vital Sign - Last 12Hours 03/05/17 14:00 Temp 99.2 Pulse 89 Resp 20 B/P (MAP) 150/68 (95) Pulse Ox 95 O2 Delivery Room Air Capillary Refill : General Appearance: no apparent distress HEENT: PERRL/EOMI Neck: supple Respiratory: no respiratory distress, no accessory muscle use Cardiovascular: regular rate, rhythm Gastrointestinal: soft, no organomegaly, no pulsatile mass, tenderness ( minimal tendernes lower quadrants) Rectal: deferred Back: normal inspection Extremities: non-tender Neurologic/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 nml as tested, no motor/sensory deficits, alert, normal mood/affect, oriented x 3 Skin: normal color, warm/dry Data Review Labs Laboratory Tests 03/05/17 14:20: White Blood Count 7.3, Red Blood Count 4.11L, Hemoglobin 12.9, Hematocrit 38, Mean Corpuscular Volume 93, Mean Corpuscular Hemoglobin 31, Mean Corpuscular Hemoglobin Concent 34, Red Cell Distribution Width 13.0, Platelet Count 216, Mean Platelet Volume 8.8, Neutrophils (%) (Auto) 72, Lymphocytes (%) (Auto) 13, Monocytes (%) (Auto) 14H, Eosinophils (%) (Auto) 1, Basophils (%) (Auto) 0, Neutrophils # (Auto) 5.2, Lymphocytes # (Auto) 1.0, Monocytes # (Auto) 1.0, Eosinophils # (Auto) 0.1, Basophils # (Auto) 0.0, Sodium Level 138, Potassium Level 4.1, Chloride Level 102, Carbon Dioxide Level 29, Anion Gap 7, Blood Urea Nitrogen 14, Creatinine 0.82, Estimat Glomerular Filtration Rate > 60, BUN/ Creatinine Ratio 17, Glucose Level 151H, Calcium Level 9.0, Total Bilirubin 0.7 , Aspartate Amino Transf (AST/SGOT) 18, Alanine Aminotransferase (ALT/SGPT) 20, Alkaline Phosphatase 51, Total Protein 6.8, Albumin 3.7 Assessment/Plan Assessment/Plan Assessment/Plan abdominal pain lower quadrants change in bowel habits-constipation discussed with Dr. Del Rosario and then with patient, feel patient would benefit by doing Colonoscopy she understands risks and benefits and wishes to proceed. golytely prep clear liquids till midnight CHAYA WHARTON DO Mar 05, 2017 16:16
[2017-03-05 16:22] VITALS: BP 145/72
[2017-03-05 19:51] VITALS: BP 158/74
[2017-03-05 23:50] VITALS: BP 155/72
[2017-03-06] MEDS: NS IV 1000 ML 1,000 ML IV SCH (03:42)
[2017-03-06 03:57] VITALS: BP 146/79
[2017-03-06 05:42] LABS: BASOPHILS % (AUTO) 0 % (0-10); EOSINOPHILS # (AUTO) 0.1 10^3/uL (0.0-0.3); EOSINOPHILS % (AUTO) 3 % (0-10); LYMPHOCYTES # (AUTO) 0.9 X 10^3 (1.0-4.0); LYMPHOCYTES % (AUTO) 16 % (12-44); MEAN CORPUSCULAR HEMOGLOBIN 31 PG (25-34); MEAN CORPUSCULAR HGB CONC 34 G/DL (32-36); MEAN CORPUSCULAR VOLUME 93 FL (80-99); MEAN PLATELET VOLUME 9.1 FL (7.4-10.4); MONOCYTES # (AUTO) 0.7 X 10^3 (0.0-1.0); MONOCYTES % (AUTO) 13 % (0-12); NEUTROPHILS # (AUTO) 3.6 X 10^3 (1.8-7.8); NEUTROPHILS % (AUTO) 69 % (42-75); PLATELET COUNT 194 10^3/uL (130-400); RED BLOOD COUNT 3.88 10^6/uL (4.35-5.85); WHITE BLOOD COUNT 5.3 10^3/uL (4.3-11.0)
[2017-03-06 06:05] LABS: ALANINE AMINOTRANSFERASE 19 U/L (0-55); ALBUMIN 3.2 GM/DL (3.2-4.5); ANION GAP 11 MMOL/L (5-14); ASPARTATE AMINO TRANSFERASE 16 U/L (5-34); BILIRUBIN,TOTAL 0.8 MG/DL (0.1-1.0); BLOOD UREA NITROGEN 10 MG/DL (7-18); BUN/CREATININE RATIO 15; CALCIUM 8.3 MG/DL (8.5-10.1); CARBON DIOXIDE 25 MMOL/L (21-32); CHLORIDE 108 MMOL/L (98-107); CREATININE SERUM 0.67 MG/DL (0.60-1.30); GFR ESTIMATED > 60; GLUCOSE 102 MG/DL (70-105); POTASSIUM 3.7 MMOL/L (3.6-5.0); SODIUM 144 MMOL/L (135-145); TOTAL PROTEIN 5.9 GM/DL (6.4-8.2)
[2017-03-06] MEDS ORDERED: LEVOTHYROXINE 75 MCG (LEVOTHROID) TABLET PO SCH (06:30)
[2017-03-06] MEDS ORDERED: LACTATED RINGERS 1,000 ML IV ONE (06:40)
--- NOTE | 2017-03-06 06:45 | Progress Note-Pre Operative ---
Pre-Operative Progress Note H&P Reviewed The H&P was reviewed, patient examined and no changes noted. Date Seen by Provider: Mar 06, 2017 Time Seen by Provider: 06:45 Date H&P Reviewed: Mar 06, 2017 Time H&P Reviewed: 06:45 Pre-Operative Diagnosis: change in bowels, constipation CHAYA WHARTON DO Mar 06, 2017 6:45 am
[2017-03-06] MEDS ORDERED: PROPOFOL INJECTION 50 ML IV ONE (06:47)
[2017-03-06] MEDS ORDERED: LACTATED RINGERS 1,000 ML IV SCH (07:00)
[2017-03-06 08:00] VITALS: BP 141/62
[2017-03-06] MEDS ORDERED: amLODIPine 5 MG (NORVASC) TAB PO SCH (09:00)
[2017-03-06] MEDS ORDERED: LOSARTAN 50 MG (COZAAR) TAB PO SCH (09:00)
--- NOTE | 2017-03-06 10:56 | Short Stay Summary-Hospitalist ---
HPI History of Present Illness: HPI/Chief Complaint CC: Abdominal pain with severe constipation HPI: This is a 86 yoWF pt of mine with hx of IBS with constipation who had a colonoscopy last in 2006. Due to severe constipation issues, presented to my office after 3rd visit in 2 weeks and multiple visits to ER. CT showed moderate amount of fecal material as she stated she felt. Dr. Zuleta performed colonoscopy, which showed colon not as strong to propel fecal material out. Patient Interview: Pt was informed that the CT showed moderate amount of fecal material. Colonoscopy was discussed and it appears that the pt has slow transit constipation: her colon does not move to fecal material as quickly, so more liquid is absorbed. Miralax was discussed and she will restart Miralax. This will be twice a day (in am and QHS) until things are moving along well enough. If pt is getting too loose, pt will back off to once a day. Other medications were suggested, but the pt was advised to restart the Miralax. Pt's daughter asked about Reglan, this was discussed and I advised the pt to start simple first then we will see her in clinic and discuss whether she needs more BM meds. Pt was informed that there was no narrowing of the colon. CT and colonoscopy were discussed and look good Pt's daughter states that the pt feels she needs to have BM every day and doesn' t feel right if she have one Diet was discussed and it was pointed out that the pt does not eat much fiber. I am okay with this and she should have juice, water, and Miralax Scribed by Fransisca Cruz under direct supervision of Dr. Cassidy Del Rosario. Source: patient Exam Limitations: no limitations Date Seen 03/06/17 Time Seen by Provider: 10:00 Attending Physician Cassidy Del Rosario DO PCP Cassidy Del Rosario DO Referring Physician Date of Admission Mar 05, 2017 at 13:45 Home Medications & Allergies Home Medications Reviewed patient Home Medication Reconciliation Form Allergies Allergies Coded Allergies No Known Drug Allergies (Rivresfv78/4/08) Past Atwemip-Ohzjye-Djyqkb Hx Patient Social History Marrital Status: Employed/Student: retired Alcohol Use: Denies Use Recreational Drug Use: No Smoking Status: Never a Smoker 2nd Hand Smoke Exposure: No Physical Abuse Screen: No Sexual Abuse: No Recent Foreign Travel: No Contact w/other who traveled: No Recent Hopitalizations: No Recent Infectious Disease Expo: No Immunizations Up To Date Date of Pneumonia Vaccine: Jan 01, 2017 Date of Influenza Vaccine: Jan 01, 2017 Surgeries Yes (HYSTERECTOMY) Bladder Surgery, Gallbladder, Hysterectomy, Joint Replacement, Orthopedic, Tonsillectomy Respiratory No Cardiovascular Yes High Cholesterol, Hypertension Neurological No Reproductive System Hx Reproductive Disorders: No Sexually Transmitted Disease: No Genitourinary No Gastrointestinal Yes Chronic Constipation, Irritable Bowel Musculoskeletal Yes Arthritis Endocrine History of Endocrine Disorders: Yes Endocrine Disorders: Hypothyroidsim HEENT History of HEENT Disorders: Yes HEENT Disorders: Cataract Cancer No Psychosocial History of Psychiatric Problem: No Integumentary History of Skin or Integumenta: No Blood Transfusions History of Blood Disorders: No Family Medical History Significant Family History: No Pertinent Family Hx Review of Systems Constitutional: see HPI EENTM: no symptoms reported Respiratory: no symptoms reported Cardiovascular: no symptoms reported Gastrointestinal: abdominal pain (LLQ), constipation, loss of appetite Musculoskeletal: back pain Skin: no symptoms reported Psychiatric/Neurological: No Symptoms Reported All Other Systems Reviewed Negative Unless Noted: Yes Physical Exam Physical Exam Vital Signs Vital Sign - Last 12Hours 03/05/17 14:00 Temp 99.2 Pulse 89 Resp 20 B/P (MAP) 150/68 (95) Pulse Ox 95 O2 Delivery Room Air Capillary Refill : General Appearance: No Apparent Distress, WD/WN, Chronically ill Eyes: Bilateral Eye Normal Inspection, Bilateral Eye PERRL HEENT: PERRL/EOMI, Normal ENT Inspection, Pharynx Normal Neck: Full Range of Motion, Normal Inspection, Non Tender, Supple, Carotid Bruit Respiratory: Chest Non Tender, Lungs Clear, Normal Breath Sounds, No Accessory Muscle Use, No Respiratory Distress Cardiovascular: Regular Rate, Rhythm, No Edema, No Gallop, No JVD, No Murmur, Normal Peripheral Pulses Gastrointestinal: Normal Bowel Sounds, No Organomegaly, No Pulsatile Mass, Non Tender, Soft Back: Normal Inspection, No CVA Tenderness, No Vertebral Tenderness Extremity: Normal Capillary Refill, Normal Inspection, Normal Range of Motion, Non Tender, No Calf Tenderness, No Pedal Edema Neurologic/Psychiatric: Alert, Oriented x3, No Motor/Sensory Deficits, Normal Mood/Affect Skin: Normal Color, Warm/Dry Lymphatic: No Adenopathy Results Results/Procedures Lab Laboratory Tests 03/05/17 14:20 03/06/17 05:08 Short Stay Diagnosis Discharge Diagnosis-Short Stay Admission Diagnosis Assessment: Abdominal pain with severe and refractory constipation New onset back pain HTN DM diet controlled 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
[2017-03-06] MEDS ORDERED: POLY17PO6 PO (11:03)
--- NOTE | 2017-03-06 22:15 | Progress Note-Post Operative ---
Post-Operative Progess Note Surgeon (s)/Consumer Relations Complaint Clerk (s) Surgeon CHAYA WHARTON DO Consumer Relations Complaint Clerk: na Pre-Operative Diagnosis change in bowels, constipation Post-Operative Diagnosis diverticulosis, erythema rectum Procedure & Operative Findings Date of Procedure 03/06/17 Procedure Performed/Findings colonoscopy with cold biopsy rectum Anesthesia Type per cloth finishing range tender Estimated Blood Loss Estimated blood loss (mL): none Specimens/Packing Specimens Removed rectum CHAYA WHARTON DO Mar 06, 2017 22:15
--- NOTE | 2017-03-07 02:13 | OPERATIVE REPORT ---
DATE OF SERVICE: 03/06/2017 PREOPERATIVE DIAGNOSES: Change in bowel habits, constipation. POSTOPERATIVE DIAGNOSES: Diverticulosis and erythematous changes of rectum. SURGEON: Chaya Zuleta DO PROCEDURE: Colonoscopy with cold biopsy rectum. ANESTHESIA: Per TELEVISION ENGINEERING TEACHER. ESTIMATED BLOOD LOSS: None. COMPLICATIONS: None. INDICATIONS: The patient is an 86-year-old female who has had change in bowel habits and constipation. She understands risks and benefits of procedure and wished to proceed with procedure. Consent was signed in the chart. DESCRIPTION OF PROCEDURE: The patient was taken to the endoscopy suite, placed in left lateral recumbent position. Timeout was performed. Digital rectal exam was performed. There were no palpable polyps, mass or ulcerations. The scope was inserted into the rectum and noticed erythematous changes of the rectum, possibly from prep or from the previous enemas. The scope was slowly advanced all the way to the cecum without difficulty. There were no polyps, mass or ulcerations within the cecum and the prep was adequate. Scope was slowly retracted back. There were no polyps, masses or ulcerations within the ascending colon, transverse colon, descending colon or sigmoid colon. There was some diverticulosis present within the sigmoid colon. No polyps, masses or ulcerations. Scope was continued slowly retracted back into the rectum where it was also retroflexed noting the erythematous changes as noted before. Scope was returned to its normal position slowly withdrawn, before completely withdrawing a biopsy of the rectum was obtained and the scope was then slowly retracted until completely removed noting no other pathology. The patient tolerated procedure well without any complications. She was taken to recovery room in stable condition. RECOMMENDATIONS: We would recommend beginning on a fairly aggressive bowel regimen due to the patient's significant constipation. We will, however, follow up on the biopsy of the rectum, which I feel this is most likely secondary to the previous enemas or the prep. The patient should follow up in 2 weeks in the office. Job ID: [id number] DocumentID: [id number] Dictated Date: 03/06/2017 17:09:34 Public Health Training Assistant Date: 03/07/2017 01:22:01 Dictated By: CHAYA ZULETA DO
== END 2017-03-06 11:25 | disposition home or self-care (01) ==
LOC: SDC 13:45 → 4TH 13:45 → UNDOADMOB 13:45 → UNDODISOB 03-06 11:25 → SDC 03-06 11:25 → EDSTATUS 03-06 15:40
PROVIDERS: ATTEND Internal Medicine
DX: K57.30 Diverticulosis of large intestine without perforation or abscess without bleeding (principal); K62.89 Other specified diseases of anus and rectum; K58.1 Irritable bowel syndrome with constipation; I10 Essential (primary) hypertension; E78.5 Hyperlipidemia, unspecified; E03.9 Hypothyroidism, unspecified; E11.9 Type 2 diabetes mellitus without complications; F41.9 Anxiety disorder, unspecified; M54.5 Low back pain; Z79.82 Long term (current) use of aspirin; Z79.899 Other long term (current) drug therapy
CPT/HCPCS: 36415; 74177; 80053; 85025; 87081

== ENCOUNTER → 2017-03-20 | Outpatient (CLI) | payer MEDICARE ==
[~2017-03-20] MED LIST changes: +AMLO5TAB2 PO; +ASPI-983 PO; +CALC-901 PO; +CYAN1TAB16 PO; +LEVO75TA6 PO; +LOSA50TA36 PO; +OMEG-77 PO; +POLY17PO6 PO
--- NOTE | 2017-03-20 10:30 | Diagnostic Imaging Report ---
INDICATION: Back pain. COMPARISON: CT dated 03/05/2017. FINDINGS: Frontal and lateral radiographic views of the lumbar spine were obtained. There is asymmetric compression of the L1 vertebral body, primarily involving the superior endplate and result in approximately 50% vertebral body height loss. This does appear to be new when compared to CT dated 03/05/2017. There are also multilevel degenerative changes consisting of intervertebral disc height loss. There is also multilevel facet arthropathy. Evaluation of static alignment demonstrates mild grade 1 anterolisthesis at the L3-L4 and L4-L5 levels. Surrounding soft tissue structures show calcified aortic atherosclerosis. No unexpected radiopaque foreign bodies are seen. IMPRESSION: 1. L1 compression deformity, which is concerning for acute injury. Correlation with MRI is recommended. 2. Multilevel degenerative changes. Dictated by: Dictated on workstation # [id number]
--- NOTE | 2017-03-20 11:44 | Diagnostic Imaging Report ---
INDICATION: Pelvic pain AP view pelvis shows no fracture or dislocation. IMPRESSION: Negative pelvis. Dictated by: Dictated on workstation # [id number]
--- NOTE | 2017-03-20 11:44 | Diagnostic Imaging Report ---
INDICATION: Sacral pain AP and oblique views of the sacrum and sacroiliac joints were obtained. The coccyx and sacrum appear to be intact. Sacroiliac joints are unremarkable. There are degenerative disc changes at L5-S1 with vacuum disc phenomena. IMPRESSION: Unremarkable sacrococcyx. Dictated by: Dictated on workstation # [id number]
== END ==
LOC: RAD 08:47
PROVIDERS: ATTEND Internal Medicine
DX: M43.8X6 Other specified deforming dorsopathies, lumbar region (principal); M47.816 Spondylosis without myelopathy or radiculopathy, lumbar region; M53.3 Sacrococcygeal disorders, not elsewhere classified; X58.XXXA Exposure to other specified factors, initial encounter
CPT/HCPCS: 72100; 72170; 72220

== ENCOUNTER → 2017-03-27 | Outpatient (CLI) | payer MEDICARE ==
[2017-03-27] MEDS: GADOBUTROL 7.5 MMOL/7.5 ML (GADAVIST) VIAL IV ONE (11:07)
--- NOTE | 2017-03-27 11:57 | Diagnostic Imaging Report ---
PROCEDURE: MRI lumbar spine with and without contrast. TECHNIQUE: Multiplanar, multisequence MRI of the lumbar spine was performed with and without contrast. INDICATION: Back pain. FINDINGS: There are no previous MRI examinations available for comparison. The plain film examination of the lumbar spine performed on 03/20/2017 did note a 50% compression fracture involving the superior endplate of L1. This finding had developed in the interval since the previous CT exam of 03/05/2017 and consequently is felt to represent an acute injury. On this study, there is diffusely abnormal signal throughout the entire vertebral body of L1. This would be consistent with bone edema from a subacute fracture. There is also diffuse enhancement of the L1 vertebral body on the post contrast series. There is a retropulsed fragment along the posterosuperior aspect of the L1 vertebral body. The retropulsed portion of the compressed vertebral body indents the ventral aspect of the thecal sac and narrows the AP diameter to approximately 9.8 mm. There is mild narrowing of the neuroforamen bilaterally at this level as well. There is no other abnormal signal arising from the osseous structures to suggest bone edema or fracture. However, there is a prominent disc protrusion centrally at the L4-L5 level. The disc flattens the ventral aspect of the thecal sac and narrows the AP diameter to approximately 3.5 mm. There is also narrowing of the neuroforamen bilaterally at this level. In addition, there is approximately 5.6 mm anterior translation of L4 with respect to L5. At the L3-L4 level, there is 3.3 mm of anterior translation of L3 with respect to L4. There is narrowing of the disc space at this level and there is a disc bulge eccentric to the right. The disc compresses the right ventral aspect of the thecal sac and narrows the AP diameter to 7.4 mm. There is also narrowing of the neuroforamen on the right at this level. There is mild narrowing of the neuroforamen on the left as well. At the L2-L3 level, there is borderline trefoil stenosis. There is also narrowing of the neuroforamen bilaterally, particularly on the right. At the L1-L2 level, there is a disc bulge centrally. The disc indents the ventral aspect of the thecal sac and narrows the AP diameter to 11.1 mm. There is moderate narrowing of the neuroforamen bilaterally at this level. At the L5-S1 level, there is a broad-based disc bulge centrally. The AP diameter of the thecal sac is narrowed to approximately 11 mm. There is mild narrowing of the neuroforamen on the right and at least moderate narrowing of the neuroforamen on the left. There is no abnormal signal arising from the cord on the post enhancement series. There is no sign of a paraspinal mass. The large cyst associated with the right kidney seen on the recent CT abdomen/pelvis exam of 03/05/2017 is again evident. IMPRESSION: 1. There is a subacute 50% compression deformity of L1. There is a retropulsion of the posterosuperior endplate of L1 but there is no significant central stenosis or neuroforaminal narrowing at this level. No other acute bony abnormality is appreciated. 2. 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 3. These results were called to Dr. Cassidy Del Rosario at the time of this dictation. Dictated by: Dictated on workstation # [id number]
== END ==
LOC: RAD 10:35
PROVIDERS: ATTEND Internal Medicine
DX: S32.010G Wedge compression fracture of first lumbar vertebra, subsequent encounter for fracture with delayed healing (principal); M51.36 Other intervertebral disc degeneration, lumbar region
CPT/HCPCS: 72158

== ENCOUNTER → 2017-04-02 | Outpatient (CLI) | payer MEDICARE ==
--- NOTE | 2017-04-02 12:59 | Diagnostic Imaging Report ---
DEXA SPINE / TREVA HIP TECHNIQUE: Dual-energy absorptiometry of the lumbar spine and bilateral hips. INDICATION: 87-year-old postmenopausal female for osteoporosis screening. COMPARISON: 04/09/2012. FINDINGS: The total bone mineral density of the lumbar spine (L1-L4) is 1.051 g per centimeter square which gives a T score of -1.1 and a Z score of 1.1. Bone mineral density of the lumbar spine has decreased by 5% since prior exam, though this is not statistically significant. Bone mineral density of the right femoral neck is 0.860 g per centimeter square which gives a T score of -1.3 and Z score of 1.3. The bone mineral density of the left femoral neck is 0.827 g per centimeter square which gives a T score of -1.5 and a Z score of 1.1. The total mean bone mineral density of the hips has decreased by 4% since prior examination, although this is not statistically significant. IMPRESSION: 1. Low bone mass (osteopenia). 2. No statistically significant change in bone mineral density since prior exam of 2012. 3. Consider followup DEXA exam in 12-24 months to reassess bone mineral density. Dictated by: Dictated on workstation # [id number]
== END ==
LOC: RAD 11:31
PROVIDERS: ATTEND Internal Medicine
DX: M85.88 Other specified disorders of bone density and structure, other site (principal)
CPT/HCPCS: 77080

== ENCOUNTER → 2017-06-23 | Outpatient (CLI) | payer MEDICARE | LOC: RAD 08:30 | PROVIDERS: ATTEND Internal Medicine | DX: Z12.31 Encounter for screening mammogram for malignant neoplasm of breast (principal) | CPT/HCPCS: 77067 ==

== ENCOUNTER → 2017-09-03 | Outpatient (CLI) | payer MEDICARE ==
--- NOTE | 2017-09-03 16:18 | Diagnostic Imaging Report ---
INDICATION: Cough. TIME OF EXAM: 02:10 p.m. No prior studies are available for comparison. FINDINGS: The heart appears enlarged. There is some ectasia and tortuosity of the descending thoracic aorta. Lungs are clear. No infiltrate or failure is detected. No effusion or pneumothorax is seen. IMPRESSION: Cardiomegaly. No acute feature is detected. Dictated by: Dictated on workstation # [id number]
== END ==
LOC: RAD 13:35
PROVIDERS: ATTEND Internal Medicine
DX: R05 Cough (principal); I51.7 Cardiomegaly
CPT/HCPCS: 71046

== ENCOUNTER → 2018-06-29 | Outpatient (CLI) | payer MEDICARE ==
[~2018-06-29] MED LIST changes: -AMLO5TAB2 PO; +AMLO5TAB9 PO; -LOSA50TA36 PO; +LOSA50TA63 PO
--- NOTE | 2018-06-30 11:14 | Diagnostic Imaging Report ---
INDICATION: Routine screening. EXAMINATION: Digital mammogram bilateral screening with 3-D tomosynthesis. The current study was also evaluated with a Computer Aided Detection (CAD) system. This study was compared to prior exams of 06/23/2017, 06/19/2016 and 06/18/2015. At this time, there are no current complaints. FINDINGS: There are scattered fibroglandular densities in both breasts which could obscure a lesion. Overall, there does not appear to have been any significant change when compared to the prior exam. No primary or secondary sign of malignancy is noted. IMPRESSION: There is no radiographic evidence for malignancy. ACR BI-RADS Category 1: Negative. Result letter will be mailed to the patient. Note: At least 10% of breast cancer is not imaged by mammography. Dictated by: Dictated on workstation # [id number]
== END ==
LOC: RAD 08:35
PROVIDERS: ATTEND Internal Medicine
DX: Z12.31 Encounter for screening mammogram for malignant neoplasm of breast (principal)
CPT/HCPCS: 77067

== ENCOUNTER 2018-10-31 14:25 | Emergency (ER) | payer MEDICARE ==
[~2018-10-31] VITALS: Ht 147.3 cm; Wt 57.6 kg
--- NOTE | 2018-10-31 15:31 | ED Head Injury ---
General Chief Complaint: Head/Cervical Problems Stated Complaint: FALL,HIT HEAD, BUMP ON FOREHEAD Nursing Triage Note: PT FELL COMING [place] THE [place] AND HIT HEAD. PT STATES NO LOC. Source: patient, family (son) Exam Limitations: no limitations History of Present Illness Date Seen by Provider: Oct 31, 2018 Time Seen by Provider: 15:13 Initial Comments 88-year-old female patient presents to the emergency Department with reports of [place] and hitting the left side of the head on the floor. Denies loss of consciousness, confusion, headache, dizziness, neck pain, back pain. Location Injury Occurred: [facility] Occurred: other (approximately 30-45 minutes prior to arrival) Location: parietal (left) Method of Injury: fell Loss of Consciousness: no loss of consciousness Allergies and Home Medications Allergies Coded Allergies: No Known Drug Allergies (Verified , 02/24/08) Home Medications Amlodipine Besylate 5 Mg Tablet, 5 MG PO DAILY, (Reported) Aspirin 81 Mg Tablet.dr, 81 MG PO DAILY, (Reported) Calcium Carbonate/Vitamin D3 1 Each Tablet, 1 TAB PO DAILY, (Reported) Cyanocobalamin/FA/Pyridoxine 1 Each Tablet, 1 TAB PO DAILY, (Reported) Levothyroxine Sodium 75 Mcg Tablet, 75 MCG PO DAILY, (Reported) Losartan Potassium 50 Mg Tablet, 50 MG PO DAILY, (Reported) [place]-3 Fatty Acids/Fish Oil 1 Each Capsule, 1,000 MG PO DAILY, (Reported) Polyethylene Glycol 3350 17 Gm Powd.pack, 17 GM PO Q12H Prescribed by: TORIE ARMSTRONG on 03/06/17 1103 Patient Home Medication List Home Medication List Reviewed: Yes Review of Systems Review of Systems Constitutional: No dizziness, No weakness, No other (fatigue) Eyes: Denies Blindness, Denies Blurred Vision, Denies Drainage, Denies Decreased Acuity, Denies Pain, Denies Photophobia, Denies Vision Changes; Glasses Ears, Nose, Mouth, Throat: denies ear pain, denies ear discharge, denies nose pain, denies nose discharge, denies epistaxis, denies mouth pain, denies loose teeth, denies throat pain Respiratory: No cough, No dyspnea on exertion, No short of breath, No stridor, No wheezing Cardiovascular: No chest pain, No edema, No palpitations, No syncope Gastrointestinal: no symptoms reported Genitourinary: no symptoms reported Musculoskeletal: No back pain, No joint pain, No neck pain Skin: other (bruising to the left scalp, left hand, left elbow) Psychiatric/Neurological: Denies Cognitive Dysfunction, Denies Headache, Denies Numbness, Denies [place] Seizures, Denies Tingling, Denies Tonic Clonic Seizures, Denies Unable to Move Lower Ext, Denies Unable to Move Upper Ext, Denies Weakness All Other Systems Reviewed Negative Unless Noted: Yes (Negative excepted noted.) Past Jvqklqp-Jrevbf-Zfwgie Hx Past Med/Social Hx: Reviewed Nursing Past Med/Soc Hx Patient Social History Alcohol Use: Denies Use Recreational Drug Use: No 2nd Hand Smoke Exposure: No Recent Foreign Travel: No Contact w/Someone Who Travel: No Recent Infectious Disease Expo: No Recent Hopitalizations: No Physical Abuse: No Sexual Abuse: No Mistreated: No Fear: No Immunizations Up To Date Date of Pneumonia Vaccine: Jan 01, 2017 Date of Influenza Vaccine: Jan 01, 2017 Past Medical History Surgeries: Yes (HYSTERECTOMY) Bladder Surgery, Gallbladder, Hysterectomy, Joint Replacement, Orthopedic, Tonsillectomy Respiratory: No Cardiac: Yes High Cholesterol, Hypertension Neurological: No Reproductive Disorders: No Sexually Transmitted Disease: No Genitourinary: No Gastrointestinal: Yes Chronic Constipation, Irritable Bowel Musculoskeletal: Yes Arthritis Endocrine: Yes Hypothyroidsim HEENT: Yes Cataract Hearing Impairment: Denies Cancer: No Psychosocial: No Integumentary: No Blood Disorders: No Family Medical History Reviewed Nursing Family Hx No Pertinent Family Hx Physical Exam Vital Signs Vital Signs - First Documented 10/31/18 14:32 Resp 16 B/P (MAP) 194/81 (118) Pulse Ox 96 O2 Delivery Room Air Capillary Refill : Less Than 3 Seconds Height, Weight, BMI Height: 4'10.00" Weight: 127lbs. 7.0oz. 57.832343qq; 26.2 BMI Method:Stated General Appearance: WD/WN, no apparent distress HEENT: PERRL/EOMI, normal ENT inspection, TMs normal, pharynx normal, other (large hematoma to the left parietal scalp/cheondoism. No tenderness noted. Mild bruising to the left cheek. No evidence of Chamberlain sign or hemotympanum.) Neck: non-tender, full range of motion, supple, normal inspection Cardiovascular: normal peripheral pulses, regular rate, rhythm, no edema, no gallop, no murmur Respiratory: lungs clear, normal breath sounds, no respiratory distress, no accessory muscle use Gastrointestinal: normal bowel sounds, non tender, soft, no organomegaly Back: normal inspection, no vertebral tenderness; No decreased range of motion Extremities: normal range of motion, non-tender, no pedal edema, normal capillary refill, pelvis stable, other (mild ecchymosis without tenderness or deformity to the left posterior hand and left lateral elbow. no deformity noted. full ROM monted to all joints.) Psychiatric: alert, oriented x 3 Crainal Nerves: normal hearing, normal speech, PERRL; No abnormal eye position, No abnormal pupil position, No abnormal speech, No facial asymmetry, No facial droop, No facial paresthesias, No facial weakness, No gaze palsy Coordination/Gait: normal finger to nose Motor/Sensory: no motor deficit, no sensory deficit, no pronator drift Skin: normal color, warm/dry, ecchymosis (see HEENT and Extremity exam above.) Progress/Results/Core Measures Results/Orders Lab Results Laboratory Tests Test 10/31/18 14:43 Range/Units White Blood Count 6.6 4.3-11.0 10^3/uL Red Blood Count 4.32 L 4.35-5.85 10^6/uL Hemoglobin 13.4 11.5-16.0 G/DL Hematocrit 40 35-52 % Mean Corpuscular Volume 93 80-99 FL Mean Corpuscular Hemoglobin 31 25-34 PG Mean Corpuscular Hemoglobin Concent 34 32-36 G/DL Red Cell Distribution Width 12.6 10.0-14.5 % Platelet Count 228 130-400 10^3/uL Mean Platelet Volume 10.2 7.4-10.4 FL Neutrophils (%) (Auto) 51 42-75 % Lymphocytes (%) (Auto) 35 12-44 % Monocytes (%) (Auto) 12 0-12 % Eosinophils (%) (Auto) 2 0-10 % Basophils (%) (Auto) 0 0-10 % Neutrophils # (Auto) 3.4 1.8-7.8 X 10^3 Lymphocytes # (Auto) 2.3 1.0-4.0 X 10^3 Monocytes # (Auto) 0.8 0.0-1.0 X 10^3 Eosinophils # (Auto) 0.1 0.0-0.3 10^3/uL Basophils # (Auto) 0.0 0.0-0.1 10^3/uL Prothrombin Time 13.0 12.2-14.7 SEC INR Comment 0.9 0.8-1.4 Activated Partial Thromboplast Time 29 24-35 SEC Sodium Level 138 135-145 MMOL/L Potassium Level 4.4 3.6-5.0 MMOL/L Chloride Level 105 98-107 MMOL/L Carbon Dioxide Level 20 L 21-32 MMOL/L Anion Gap 13 5-14 MMOL/L Blood Urea Nitrogen 18 7-18 MG/DL Creatinine 0.97 0.60-1.30 MG/DL Estimat Glomerular Filtration Rate 54 BUN/Creatinine Ratio 19 Glucose Level 113 H 70-105 MG/DL Calcium Level 9.7 8.5-10.1 MG/DL Corrected Calcium 9.7 8.5-10.1 MG/DL Total Bilirubin 0.8 0.1-1.0 MG/DL Aspartate Amino Transf (AST/SGOT) 24 5-34 U/L Alanine Aminotransferase (ALT/SGPT) 21 0-55 U/L Alkaline Phosphatase 61 40-136 U/L Troponin I < 0.028 <0.028 NG/ML Total Protein 7.4 6.4-8.2 GM/DL Albumin 4.0 3.2-4.5 GM/DL Thyroid Stimulating Hormone (TSH) 0.45 0.35-4.94 UIU/ML My Orders Orders - ÁNGEL CORTES PA Ct Head/Cervical Spine Wo (10/31/18 15:08) Ed Iv/Invasive Line Start (10/31/18 16:32) Ekg Tracing (10/31/18 16:32) Monitor-Rhythm Ecg Trace Only (10/31/18 16:32) Chest 1 View, Ap/Pa Only (10/31/18 16:32) Cbc With Automated Diff (10/31/18 16:33) Comprehensive Metabolic Panel (10/31/18 16:33) Protime With Inr (10/31/18 16:33) Partial Thromboplastin Time (10/31/18 16:33) Thyroid Stimulating Hormone (10/31/18 16:40) Troponin I (10/31/18 16:40) Dipht,Pertuss(Acell),Tet Adult (Boostrix (10/31/18 16:45) Medications Given in ED Current Medications Medications Dose Ordered Sig/Anival Route Start Time Stop Time Status Last Admin Dose Admin Diphtheria/ Tetanus/Acell Pertussis 0.5 ml ONCE ONCE IM 10/31/18 16:45 10/31/18 16:46 DC 10/31/18 16:54 0.5 ML Vital Signs/I&O 10/31/18 14:32 Resp 16 B/P (MAP) 194/81 (118) Pulse Ox 96 O2 Delivery Room Air Blood Pressure Mean: 118 Initial ECG Impression Date: Oct 31, 2018 Initial ECG Impression Time: 16:38 Initial ECG Rate: 112 Initial ECG Rhythm: S.Tach Initial ECG Comparisson: No Previous ECG Available Comment ECG reviewed with Dr. Hays. Diagnostic Imaging Diagonstic Imaging: CT Plain Films/CT/US/NM/MRI: c-spine, head Comments Date of Exam:10/31/18 CT HEAD/CERVICAL SPINE WO PROCEDURE: CT head and CT cervical spine without contrast. TECHNIQUE: Multiple contiguous axial images were obtained through the brain and cervical spine without the use of intravenous contrast. Sagittal and coronal reformations through the cervical spine were then performed. Auto Exposure Controls were utilized during the CT exam to meet ALARA standards for radiation dose reduction. INDICATION: Traumatic head/neck injury sustained during fall from standing. COMPARISON: None FINDINGS - CT BRAIN: BRAIN: There is a small hyperdense focus in the superior left cerebral hemisphere at the junction of the frontal and parietal lobes (image 18 series 2). No other area of hemorrhage is identified. Wise-white matter differentiation is adequately preserved, without evidence of acute infarct. Focal hypodensity in the right basal ganglia likely represents old lacunar infarct. Mild periventricular and subcortical low-density white matter changes. Mild prominence of the ventricles and sulci consistent with cortical and cer ebellar parenchymal volume loss, commensurate with age. Incidental note is made of a septum pellucidum et vergae. EXTRA-AXIAL SPACES: No subdural or epidural collections. ORBITS AND PARANASAL SINUSES: Visualized orbits and globes are intact. Visualized paranasal sinuses and mastoid air cells are clear. CALVARIUM AND SOFT TISSUES: The calvarium is intact. No fractures or suspicious bony lesions. There is a left frontotemporal scalp hematoma. FINDINGS - CT CERVICAL SPINE: SPINE: No fracture. No acute osseous abnormalities. Mild pannus formation is noted about the dens. There is normal cervical lordosis. No subluxation. There is moderate multilevel degenerative loss of disc height with endplate osteophytes. No locked or perched facet. SOFT TISSUES AND LUNG APICES: Soft tissues unremarkable. Clear lung apices. IMPRESSION: - CT BRAIN: Small linear hyperdensity in the superior left cerebral hemisphere at the junction of the frontal and parietal lobes, likely reflects an acute small parenchymal or subarachnoid hemorrhage. Continued surveillance is recommended. Chronic changes, including old lacunar infarct in the right basal ganglia, age-related volume loss, and nonspecific white matter disease, most commonly attributed to small vessel ischemic change. Large left frontotemporal scalp hematoma, without evidence of underlying calvarial fracture. IMPRESSION: - CT CERVICAL SPINE: Multilevel degenerative change of the cervical spine, without evidence of acute fracture or subluxation. The above findings were discussed with HMOER Fritz, on 10/31/2018 at 1620 hrs. Dictated on workstation # [id number] Reviewed: Discussed w/Radiologist Diagonstic Imaging: Xray Plain Films/CT/US/NM/MRI: chest Comments Date of Exam:10/31/18 CHEST 1 VIEW, AP/PA ONLY INDICATION: Fall COMPARISON: 09/03/2017 FINDINGS: Single frontal view of the chest demonstrates normal heart size and pulmonary vascularity. Note is made of nodular prominence of right perihilar region. This, however is stable when compared to 09/03/2017. The lungs are well aerated and clear. No large pleural effusion or pneumothorax is seen. The visualized osseous structures show no acute abnormalities. IMPRESSION: 1. No acute cardiopulmonary process. 2. Chronic prominence of the right perihilar region. Findings are likely on the basis of prominent pulmonary vessels. Pulmonary adenopathy or mass is not entirely excluded, but felt to be less likely given the stability. Dictated on workstation # [id number] Reviewed: Reviewed by Me (radiology report reviewed by me) Departure Communication (Admissions) 1630 Diagnostic findings discussed with the patient and family. Patient denies headache, dizziness, n/v, chest pain, or SOB. A/Ox4, NAD. LCTA, CVRRR. CN II- XII intact and physiologic. No motor or sensory deficits noted. 1635 [facility] one call contacted. This provider placed on hold for on-call neurosurgeon. 1705 BP 144/83 HR 111 SaO2 96% RA. Patient denies ACEVEDO, dizziness, chest px, SOB, N/V. A/Ox4, NAD. Holding for on-call neurosurgeon. 1719 holding for [facility] on-call neurosurgeon. Will call back when she can contact the on-call neurosurgeon. 1725 Patient and family notified that we are waiting for a return call from the on-call neurosurgeon at [facility]. Verbalizes no new complaints or needs at this time. 1748 [facility] one call. Voicemail left. 1800 Return call excepted from [facility]. Patient case discussed with Dr. Xavier who graciously accepts patient to his neurosurgery service. Reports given to Dr. Owen at [facility] emergency department. Proceed with transfer. Plan for transfer discussed with the patient and family. All verbalize understanding and agree with the treatment plan. Impression Primary Impression: Cerebral parenchymal hemorrhage Qualified Codes: S06.350A - Traumatic hemorrhage of left cerebrum without loss of consciousness, initial encounter Additional Impressions: Left parietal scalp hematoma Qualified Codes: S00.03XA - Contusion of scalp, initial encounter Contusion of left hand Qualified Codes: S60.222A - Contusion of left hand, initial encounter Fall from other slipping, tripping, or stumbling Hypertension Qualified Codes: I10 - Essential (primary) hypertension Disposition: 02 XFER SHT-TRM HOSP Condition: Stable Transfer Time Spoke to Accepting Phy: 18:[address] Xavier accepts pt to his service. Transfer Facility: [facility] Method of Transfer: EMS Departure-Patient Inst. Referrals: TORIE ARMSTRONG DO (PCP/Family) Primary Care Physician ÁNGEL CORTES Oct 31, 2018 15:30
--- NOTE | 2018-10-31 15:35 | NUR ---
PT IN BED RESTING. STATES SHE HAS NO PAIN AND NEEDS NOTHING AT THIS TIME.
--- NOTE | 2018-10-31 16:28 | Diagnostic Imaging Report ---
PROCEDURE: CT head and CT cervical spine without contrast. TECHNIQUE: Multiple contiguous axial images were obtained through the brain and cervical spine without the use of intravenous contrast. Sagittal and coronal reformations through the cervical spine were then performed. Auto Exposure Controls were utilized during the CT exam to meet ALARA standards for radiation dose reduction. INDICATION: Traumatic head/neck injury sustained during fall from standing. COMPARISON: None FINDINGS - CT BRAIN: BRAIN: There is a small hyperdense focus in the superior left cerebral hemisphere at the junction of the frontal and parietal lobes (image 18 series 2). No other area of hemorrhage is identified. Wise-white matter differentiation is adequately preserved, without evidence of acute infarct. Focal hypodensity in the right basal ganglia likely represents old lacunar infarct. Mild periventricular and subcortical low-density white matter changes. Mild prominence of the ventricles and sulci consistent with cortical and cerebellar parenchymal volume loss, commensurate with age. Incidental note is made of a septum pellucidum et vergae. EXTRA-AXIAL SPACES: No subdural or epidural collections. ORBITS AND PARANASAL SINUSES: Visualized orbits and globes are intact. Visualized paranasal sinuses and mastoid air cells are clear. CALVARIUM AND SOFT TISSUES: The calvarium is intact. No fractures or suspicious bony lesions. There is a left frontotemporal scalp hematoma. FINDINGS - CT CERVICAL SPINE: SPINE: No fracture. No acute osseous abnormalities. Mild pannus formation is noted about the dens. There is normal cervical lordosis. No subluxation. There is moderate multilevel degenerative loss of disc height with endplate osteophytes. No locked or perched facet. SOFT TISSUES AND LUNG APICES: Soft tissues unremarkable. Clear lung apices. IMPRESSION: - CT BRAIN: Small linear hyperdensity in the superior left cerebral hemisphere at the junction of the frontal and parietal lobes, likely reflects an acute small parenchymal or less likely subarachnoid hemorrhage. Continued surveillance is recommended. Chronic changes, including old lacunar infarct in the right basal ganglia, age-related volume loss, and nonspecific white matter disease, most commonly attributed to small vessel ischemic change. Large left frontotemporal scalp hematoma, without evidence of underlying calvarial fracture. IMPRESSION: - CT CERVICAL SPINE: Multilevel degenerative change of the cervical spine, without evidence of acute fracture or subluxation. The above findings were discussed with HOMER Fritz, on 10/31/2018 at 1620 hrs. Dictated by: Dictated on workstation # [id number]
--- NOTE | 2018-10-31 16:30 | NUR ---
PT IN BED AND STATES SHE HAS NO PAIN AND THERE IS NOTHING SHE NEEDS AT THIS TIME. PT INSTRUCTED TO USE CALL LIGHT IF THERE IS ANYTHING SHE NEEDS.
[2018-10-31 16:40] LABS: BASOPHILS % (AUTO) 0 % (0-10); EOSINOPHILS # (AUTO) 0.1 10^3/uL (0.0-0.3); EOSINOPHILS % (AUTO) 2 % (0-10); HEMATOCRIT 40 % (35-52); HEMOGLOBIN 13.4 G/DL (11.5-16.0); LYMPHOCYTES # (AUTO) 2.3 X 10^3 (1.0-4.0); LYMPHOCYTES % (AUTO) 35 % (12-44); MEAN CORPUSCULAR HEMOGLOBIN 31 PG (25-34); MEAN CORPUSCULAR HGB CONC 34 G/DL (32-36); MEAN CORPUSCULAR VOLUME 93 FL (80-99); MEAN PLATELET VOLUME 10.2 FL (7.4-10.4); MONOCYTES # (AUTO) 0.8 X 10^3 (0.0-1.0); MONOCYTES % (AUTO) 12 % (0-12); NEUTROPHILS # (AUTO) 3.4 X 10^3 (1.8-7.8); NEUTROPHILS % (AUTO) 51 % (42-75); PLATELET COUNT 228 10^3/uL (130-400); RED CELL DISTRIBUTION WIDTH 12.6 % (10.0-14.5); WHITE BLOOD COUNT 6.6 10^3/uL (4.3-11.0)
[2018-10-31] MEDS ORDERED: TETANUS,DIPTH,PERTUSS P/F (BOOSTRIX) 0.5 ML VIAL IM ONE (16:45)
[2018-10-31 16:46] LABS: INR 0.9 (0.8-1.4)
[2018-10-31 16:52] LABS: BILIRUBIN,TOTAL 0.8 MG/DL (0.1-1.0); CALCIUM 9.7 MG/DL (8.5-10.1); CREATININE SERUM 0.97 MG/DL (0.60-1.30); POTASSIUM 4.4 MMOL/L (3.6-5.0); TOTAL PROTEIN 7.4 GM/DL (6.4-8.2)
--- NOTE | 2018-10-31 17:18 | Diagnostic Imaging Report ---
INDICATION: Fall COMPARISON: 09/03/2017 FINDINGS: Single frontal view of the chest demonstrates normal heart size and pulmonary vascularity. Note is made of nodular prominence of right perihilar region. This, however is stable when compared to 09/03/2017. The lungs are well aerated and clear. No large pleural effusion or pneumothorax is seen. The visualized osseous structures show no acute abnormalities. IMPRESSION: 1. No acute cardiopulmonary process. 2. Chronic prominence of the right perihilar region. Findings are likely on the basis of prominent pulmonary vessels. Pulmonary adenopathy or mass is not entirely excluded, but felt to be less likely given the stability. Dictated by: Dictated on workstation # [id number]
--- NOTE | 2018-10-31 17:25 | NUR ---
PT AMBULATED TO BATHROOM WITHOUT DIFFICULTY. PT STATES NO DIZZYNESS OR LIGHTHEADEDNESS.
--- NOTE | 2018-10-31 17:58 | NUR ---
PT AND FAMILY UPDATED ON STATUS OF TRANSFER. WAITING TO HEAR FROM [facility].
[2018-10-31 18:48] VITALS: BP 156/80
== END 2018-10-31 18:48 | disposition home or self-care (01) ==
LOC: EDUNIT# 14:25 → ER 14:26
DX: S06.350A Traumatic hemorrhage of left cerebrum without loss of consciousness, initial encounter (principal); S00.03XA Contusion of scalp, initial encounter; S60.222A Contusion of left hand, initial encounter; S00.83XA Contusion of other part of head, initial encounter; S50.02XA Contusion of left elbow, initial encounter; I10 Essential (primary) hypertension; E78.00 Pure hypercholesterolemia, unspecified; K58.9 Irritable bowel syndrome, unspecified; E03.9 Hypothyroidism, unspecified; Z87.19 Personal history of other diseases of the digestive system; Z79.82 Long term (current) use of aspirin; Z90.89 Acquired absence of other organs; Z90.710 Acquired absence of both cervix and uterus; W01.198A Fall on same level from slipping, tripping and stumbling with subsequent striking against other object, initial encounter; Y92.59 Other trade areas as the place of occurrence of the external cause
CPT/HCPCS: 36415; 70450; 71045; 72125; 80053; 84443; 84484; 85025; 85610; 85730; 90715; 93005; 93041

== ENCOUNTER 2019-10-23 06:27 | Emergency (ER) | payer MEDICARE ==
[~2019-10-23] VITALS: Ht 147.3 cm; Wt 63.6 kg
--- OUTSIDE RECORDS SUMMARY | 2019-10-23 06:35 | XMS REPORT ---
Author Author [employer]. [employer] [facility] Address [address] [place] [address] Care Team Providers Care Lapidarist Name Role Phone ARMSTRONG, TORIE Unavailable ARMSTRONG DO, TORIE Unavailable Unavailable TANIYA DO, MAGUI K Unavailable Unavailable ARMSTRONG DO, TORIE Unavailable Unavailable ARMSTRONG DO, TORIE Unavailable Unavailable SEBASTIAN CORONEL, ÁNGEL Lopez Unavailable Unavailable JOSÉ ANTONIO BOYD, SILVA Harris Unavailable Unavailable ARMSTRONG DO, TORIE Unavailable Unavailable TANIYA DO, MAGUI K Unavailable Unavailable Unavailable Unavailable Unavailable Unavailable Allergies The data below is from unstructured sourcesNo known allergies. Encounters Encounter Date Encounter Type Encounter Diagnosis Care Provider Facility Start: Patient encounter ÁNGEL CORONEL [facility] 10-31-2018 procedure [facility] ([id number]) Start: Emergency department SILVA CHOU MD [facility] 10-31-2018 patient visit [facility] ([id number]) End: 10-31-2018 Start: Patient encounter TORIE ARMSTRONG DO Not [facility]ail[facility] ([id number]) 06-29-2018 procedure Start: Patient encounter TORIE ARMSTRONG DO [facility] 06-29-2018 procedure [facility] ([id number]) Start: Patient encounter TORIE ARMSTRONG DO Not [facility]ail[facility] ([id number]) 09-03-2017 procedure Start: Patient encounter TORIE ARMSTRONG DO [facility] 09-03-2017 procedure [facility] ([id number]) Start: Patient encounter 06-23-2017 procedure Start: Patient encounter TORIE ARMSTRONG DO [facility] 06-23-2017 [facility] ([id number]) Start: Patient encounter 04-02-2017 procedure Start: Patient encounter TORIE ARMSTRONG DO [facility] 04-02-2017 procedure [facility] ([id number]) Start: Patient encounter TORIE ARMSTRONG DO Not [facility]ail[facility] ([id number]) 03-27-2017 procedure Start: Patient encounter TORIE NATHANIEL DO [facility] 03-27-2017 procedure [facility] ([id number]) Start: Patient encounter TORIE ARMSTRONG DO Not [facility]ail[facility] ([id number]) 03-20-2017 procedure Start: Patient encounter TORIE ARMSTRONG DO [facility] 03-20-2017 procedure [facility] ([id number]) Start: Evaluation and TORIE ARMSTRONG DO Not Available ([id number]) 03-05-2017 management of inpatient End: 03-06-2017 Start: Patient encounter TORIE ARMSTRONG DO Not [facility] ([id number]) 03-05-2017 procedure End: 03-06-2017 Start: Patient encounter TORIE ARMSTRONG DO [facility] 03-05-2017 [facility] ([id number]) End: 03-06-2017 Start: Patient encounter NA NA Not [facility]ailab le ([id number]) 02-28-2017 procedure Start: Emergency department MAGUI TANIYA DO [facility] 02-27-2017 patient visit [facility] ([id number]) End: 02-28-2017 Start: Patient encounter 12-30-2016 procedure Start: Patient encounter TORIE NATHANIEL DO [facility] 12-30-2016 [facility] ([id number]) Start: Patient encounter TORIE ARMSTRONG DO Not [facility]ail[facility] ([id number]) 06-19-2016 procedure Start: Patient encounter [facility] ([id number]) NEGATED: Patient encounter MAGUI TANIYA DO [facility] ([id number]) Highlighted procedure row has not occurred! Start: 05-01-2016 Start: Patient encounter MAGUI TANIYA DO [facility] ([id number]) 05-01-2016 procedure Start: Emergency department MAGUI TANIYA DO Not Avai lable ([id number]) 05-01-2016 patient visit End: 05-01-2016 Start: Patient encounter MGAUI TANIYA DO Not [facility]ail[facility] ([id number]) 05-01-2016 procedure Start: Patient encounter MAGUI TANIYA DO [facility] 05-01-2016 procedure [facility] ([id number]) Start: Emergency department MAGUI TANIYA DO [facility] 04-30-2016 patient visit [facility] ([id number]) End: 05-01-2016 Start: Patient encounter TORIE ARMSTRONG DO Not [facility]aila [facility] ([id number]) 08-13-2015 procedure Start: Patient encounter TORIE ARMSTRONG DO [facility] 08-13-2015 procedure [facility] ([id number]) Start: Patient encounter TORIE ARMSTRONG DO Not [facility]ail[facility] ([id number]) 06-18-2015 procedure Start: Patient encounter TORIE ARMSTRONG DO [facility] 06-18-2015 procedure [facility] ([id number]) Start: Patient encounter TORIE ARMSTRONG DO Not [facility]ail[facility] ([id number]) 06-14-2014 procedure Start: Patient encounter TORIE ARMSTRONG DO [facility] 06-14-2014 procedure [facility] ([id number]) Start: Patient encounter TORIE ARMSTRONG DO Not [facility]ail[facility] ([id number]) 09-06-2013 procedure Start: Patient encounter TORIE ARMSTRONG DO [facility] 09-06-2013 procedure [facility] ([id number]) Start: Patient encounter TORIE ARMSTRONG DO Not [facility]ail[facility] ([id number]) 06-09-2013 procedure Start: Patient encounter TORIE ARMSTRONG DO [facility] 06-09-2013 procedure [facility] ([id number]) Start: Patient encounter TORIE ARMSTRONG DO Not [facility]ail[facility] ([id number]) 06-08-2012 procedure Start: Patient encounter TORIE ARMSTRONG DO [facility] ([id number]) 04-09-2012 procedure Start: Patient encounter TORIE ARMSTRONG DO Not [facility] ([id number]) 02-17-2012 procedure Start: Patient encounter TORIE ARMSTRONG DO Not [facility]ail[facility] ([id number]) 05-22-2011 procedure Start: Evaluation and TORIE ARMSTRONG DO Not Available ([id number]) 09-21-2009 management of inpatient End: 09-24-2009 Start: Evaluation and TORIE ARMSTRONG DO [facility] 09-21-2009 management of [facility] inpatient ([id number]) End: 09-24-2009 Patient encounter NA NA [facility] ([id number]) Medical Equipment No Information Goals No Information Immunizations Immunizatio Immunization Notes Care Provider Facility n Date 10-31-2018 tetanus toxoid, NA NA [facility] reduced diphtheria [facility] toxoid, and acellular (70001) pertussis vaccine, adsorbed Interventions No Information Medications No Information Payers No Information Plan of Treatment The data below is from unstructured sources Discharge Date 02/28/17 6:18am Disposition 01 HOME, SELF-CARE Condition at Discharge Stable Instructions/Education Provided Cons tipation, Adult (DC) Prescriptions See Medication Section Referrals TORIE ARMSTRONG DO Order Date: Primary Care Physician Address: [address] [place] [id number] [id number] Additional Instructions/Education IN CREASE YOUR WATER AND FIBER INTAKE TAKE MIRALAX AND LACTULOSE EVERY 4 HOURS, UNTIL YOU HAVE CLEAR STOOLS, THEN DECREASE TO ONCE A DAY USE DULCOLAX SUPPOSITORIES AND SOAP SUDS ENEMAS UNTIL YOU HAVE CLEAR STOOLS FOLLOW UP WITH DR. ARMSTRONG ON THURSDAY IF NO BETTER All discharge instructions reviewed with patient and/or family. Voiced understanding. 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 (3 sources) Other Other specified deforming Episodic ND NDI ARMSTRONG acquired dorsopathies, lumbar region DO deformities (3 sources) Other [facility] (current) use of aspirin Episodic MAGUI TANIYA DO aftercare (17 sources) Other Other nursing home (current) drug Episodic MAGUI TANIYA DO aftercare therapy (10 sources) Other and Cardiomegaly Chronic TORIE ARMSTRONG ill-defined DO heart disease (3 sources) Other bone Other specified disorders of bone Episodic TORIE ARMSTRONG disease and density and structure, other site D O musculoskele sudhir deformities (2 sources) Other 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 (5 sources) Other Wedge compression fracture of first Episodic TORIE ARMSTRONG fractures lumbar vertebra, subsequent DO (4 sources) encounter for fracture with delayed healing Other Irritable bowel syndrome with Chroni c gastrointest constipation inal disorders (4 sources) Other Irritable bowel syndrome without Chronic ÁNGEL gastrointest diarrhea SEBASTIAN CORONEL inal disorders (2 sources) Other Constipation, unspecified Episodic LI SA TANIYA DO gastrointest inal disorders (16 sources) Other lower Cough Episodic TORIE ARMSTRONG respiratory DO disease (3 sources) Residual Acquired absence of other organs ; Episodic MAGUI TANIYA DO codes; Translations: [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] (7 sources) Spondylosis; 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, lumbar region ; DO al disc Translations: [Spondylosis without disorders; myelopathy or radiculopathy , lumbar other back region] problems (7 sources) Past or Other Problems Problem Problem Date Last Documented Episodic/Chr Provider Classificati Recorded Date onic on Abdominal Incisional ventral hernia with Episodic TORIE ARMSTRONG hernia obstruction DO (2 sources) E Codes: Fall on same level from slipping, Episodic ÁNGEL Fall tripping and stumbling with SEBASTIAN CORONEL (2 sources) subsequent striking against other object, initial encounter E Codes: Other trade areas as the place of Episodic ÁNGEL Place of occurrence of the external cause [place] occurrence (2 sources) Intracranial Traumatic hemorrhage of left Episodic ÁNGEL injury cerebrum without loss of SEBASTIAN CORONEL consciousness, initial encounter (2 sources) Other bone Disorder of bone and cartilage, Episodic TORIE ARMSTRONG disease and unspecified DO musculoskele sudhir deformities (3 sources) Other Pain in limb Episodic TORIE ARMSTRONG connective DO tissue disease (4 sources) Other Personal history of other diseases Episodic ÁNGEL gastrointest of the digestive system SEBASTIAN CORONEL inal disorders (2 sources) Other Unspecified injury of head, initial Episodic ÁNGEL injuries and encounter SEBASTIAN CORONEL conditions due to external causes (2 sources) 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 Social History No Information Vital Signs The data below is from unstructured sources Vital Response Date/Time Temperature (Fahrenheit) 98.4 degree s F (97.6 - 99.5) 02/28/2017 3:22am Temperature (Calculated Celsius) 36. 90889 degrees C (36.4 - 37.5) 02/28/2017 3:22am Temperature Source Temporal 02/28/2017 3:22am Pulse Rate (adult) 113 bpm (60 - 90) 02/28/2017 6:18am Respiratory Rate 18 bpm (12 - 24) 02/28/2017 6:18am O2 Sat by Pulse Oximetry 99 % (88 - 100) 02/28/2017 6:18am Blood Pressure 145/80 mm Hg 02/28/2017 6:18am Blood Pressure Mean 95 mm Hg (65 - 110) 02/28/2017 3:22am Pain Numeric Pain Scale 0-No Pain 02/28/2017 3:22am Height (Feet) 4 feet 11/2016 3:22am Height (Inches) 10.00 inches 02/28/2017 3:22am Height (Calculated Centimeters) 147. 998436 cm 02/28/2017 3:22am Weight (Pounds) 126 pounds 02/28/2017 3:22am Weight (Calculated Kilograms) 57.152 639 kilograms 02/28/2017 3:22am Weight Method Stated 11/2016 3:22am Capillary Refill Capillary Refill Less Than 3 Seconds 02/28/2017 3:22am Height 4 ft 10 in 2016 3:22am Weight 126 lb 02/28/2017 3:22am Body Mass Index 26.3 kg/m^2 02/28/2017 3:22am Functional Status The data below is from unstructured sourcesNo functional status information available. Mental Status No Information Advance Directives Directive Response Recor ded Date/Time Advance Directives Yes 1 05/01/16 3:22am Health Care Power of Business Consultant No 02/28/17 3:22am Organ Donor No 02/28/17 3:22am Resuscitation Status Full Code 02/28/17 3:22am Discharge Instructions No hospital discharge instruction information available. Additional Source Comments This clinical document has been generated using [email or web address] software that has been certified by the Office of the National Coordinator for Health Information Technology (ONC 15.99.04.3023.Diam.31.00.0.804321) and the National Committee for Child Welfare Assistant (NCQA, as an eMeasure certified technology). FOR RECORDS PERTAINING TO PATIENTS WHO ARE OR HAVE BEEN ENROLLED IN A CHEMICAL D EPENDENCY/SUBSTANCE ABUSE PROGRAM, SOME INFORMATION MAY BE OMITTED. This clinica l summary was aggregated from multiple sources. Caution should be exercised in using it in the provision of clinical care. This summary normalizes information from multiple sources, and as a consequence, information in this document may ma terially change the coding, format and clinical context of patient data. In xin tion, data may be omitted in some cases. CLINICAL DECISIONS SHOULD BE BASED ON T HE PRIMARY CLINICAL RECORDS. [employer] provides no warranty or guara ntee of the accuracy or completeness of information in this document.The followi ng information is based on time limited clinical information
--- OUTSIDE RECORDS SUMMARY | 2019-10-23 06:37 | XMS REPORT | Continuity of Care Document ---
Author Organization Unknown Address Unknown Phone Unavailable Allergies Active Description Code Type Severity Reaction Onset Reported/Identified Relationship to Patient Clinical Status Yes No Known Drug Allergies [id number] Drug Allergy Unknown N/A 02/24/2008 Medications There is no data. 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 EOARTHROS NOS- UNSPEC 09/24/2009 Ot 733.00 OST EOPOROSIS NOS 08/11/2014 TORIE ARMSTRONG DO Ot V76.12 [...] CURRENT PATHO 05/01/2016 Ot V76.12 OTH SCREEN MAMMO- MALIGN NEOPLASM OF DELVIN 05/01/2016 Ot 753.10 CYS TIC KIDNEY DISEASE, UNSPECIFIED 05/01/2016 Ot 789.00 ABD OMINAL PAIN, UNSPECIFIED SITE 05/01/2016 Ot 790.6 ABN BLOOD CHEMISTRY NEC 05/01/2016 Ot 733.90 BON E CARTILAGE DIS NOS 05/01/2016 Ot V76.12 OTH SCREEN MAMMO- MALIGN NEOPLASM OF DELVIN 05/01/2016 ARMSTRONG DO, TORIE [...] 05/01/2016 TANIYA DO MAGUI K Ot Z79.82 LONG-TERM (CURRENT) USE OF ASPIRIN 05/01/2016 TANIYA DO, MAGUI K Ot Z79.899 OTHER SHOT POLISHER AND INSPECTOR (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 THERAPY 05/02/2016 TANIYA DO, MAGUI K Ot I10 ESSENTIAL (PRIMARY) HYPERTENSION 05/02/2016 TANIYA DO, MAGUI K Ot K59.00 CONSTIPATION, UNSPECIFIED 05/02/2016 TANIYA DO, MAGUI K Ot K62.89 OTHER SPECIFIED DISEASES OF ANUS AND REC 05/02/2016 TANIYA DO MAGUI K Ot Z79.82 SHOT POLISHER AND INSPECTOR (CURRENT) USE OF ASPIRIN 05/02/2016 MAGUI MONAHAN DO Ot Z79.899 OTHER SHOT POLISHER AND INSPECTOR (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 THERAPY 05/07/2016 MAGUI MONAHAN DO Ot I10 ESSENTIAL (PRIMARY) HYPERTENSION 05/07/2016 MAGUI MONAHAN DO Ot K59.00 CONSTIPATION, UNSPECIFIED 05/07/2016 MAGUI MONAHAN DO Ot K62.89 OTHER SPECIFIED DISEASES OF ANUS AND REC 05/07/2016 MAGUI MONAHAN DO Ot Z79.82 LONG-TERM (CURRENT) USE OF ASPIRIN 05/07/2016 MAGUI MONAHAN DO Ot Z79.899 OTHER SHOT POLISHER AND INSPECTOR (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 THERAPY 05/14/2016 MAGUI MONAHAN DO Ot K59.00 CONSTIPATION, UNSPECIFIED 06/19/2016 Ot V76.12 OTH SCREEN MAMMO- MALIGN NEOPLASM OF DELVIN 06/19/2016 Ot 753.10 CYS TIC KIDNEY DISEASE, UNSPECIFIED 06/19/2016 Ot 789.00 ABD OMINAL PAIN, UNSPECIFIED SITE 06/19/2016 Ot 790.6 ABN BLOOD CHEMISTRY NEC 06/19/2016 Ot 733.90 BON E CARTILAGE DIS NOS 06/19/2016 Ot V76.12 OTH SCREEN MAMMO- MALIGN NEOPLASM OF DELVIN 06/19/2016 TORIE ARMSTRONG DO Ot V76.12 OTH SCREEN MAMMO-MALIGN NEOPLASM OF DELVIN 06/19/2016 TORIE ARMSTRONG DO Ot 729.5 PAIN IN LIMB 06/19/2016 TORIE ARMSTRONG DO Ot 782.3 EDEMA 06/19/2016 TORIE ARMSTRONG DO Ot 793.99 OTH NOSP (ABN) FINDINGS RADIOLOGICAL O 06/19/2016 TORIE ARMSTRONG DO Ot V76.12 OTH SCREEN MAMMO-MALIGN NEOPLASM OF DELVIN 06/19/2016 TORIE ARMSTRONG DO Ot Z12.31 ENCNTR SCREEN MAMMOGRAM FOR MALIGNANT NE 06/19/2016 TORIE ARMSTRONG DO Ot M81.8 OTHER OSTEOPOROSIS WITHOUT CURRENT PATHO 06/19/2016 TANIYA MAGUI KOTHARI Ot K59.00 CONSTIPATION, UNSPECIFIED 06/19/2016 TORIE ARMSTRONG DO Ot 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 06/19/2016 TORIE ARMSTRONG DO Ot Z12.31 ENCNTR SCREEN MAMMOGRAM FOR MALIGNANT NE 06/19/2016 TORIE ARMSTRONG DO Ot 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 06/19/2016 TORIE ARMSTRONG DO Ot Z12.31 ENCNTR SCREEN MAMMOGRAM FOR MALIGNANT NE 06/20/2016 TORIE ARMSTRONG DO Ot 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 06/20/2016 TORIE ARMSTRONG DO Ot Z12.31 ENCNTR SCREEN MAMMOGRAM FOR MALIGNANT NE 07/15/2016 TORIE ARMSTRONG DO Ot 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 07/15/2016 TORIE ARMSTRONG DO Ot Z12.31 ENCNTR SCREEN MAMMOGRAM FOR MALIGNANT NE 07/18/2016 TORIE ARMSTRONG DO Ot 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 07/18/2016 TORIE ARMSTRONG DO Ot Z12.31 ENCNTR SCREEN MAMMOGRAM FOR MALIGNANT NE 12/29/2016 Ot 753.10 CYS TIC KIDNEY DISEASE, UNSPECIFIED 12/29/2016 Ot 789.00 ABD OMINAL PAIN, UNSPECIFIED SITE 12/29/2016 Ot 790.6 ABN BLOOD CHEMISTRY NEC 12/29/2016 Ot 733.90 BON E CARTILAGE DIS NOS 12/29/2016 Ot V76.12 OTH SCREEN MAMMO- MALIGN NEOPLASM OF DELVIN 12/29/2016 TORIE ARMSTRONG DO Ot V76.12 OTH SCREEN MAMMO-MALIGN NEOPLASM OF DELVIN 12/29/2016 KATERIN ARMSTRONG DOI Ot 729.5 PAIN IN LIMB 12/29/2016 KATERIN ARMSTRONG DOI Ot 782.3 EDEMA 12/29/2016 TORIE ARMSTRONG DO Ot 793.99 OTH NOSP (ABN) FINDINGS RADIOLOGICAL O 12/29/2016 TORIE ARMSTRONG DO Ot V76.12 OTH SCREEN MAMMO-MALIGN NEOPLASM OF DELVIN 12/29/2016 TORIE ARMSTRONG DO Ot Z12.31 ENCNTR SCREEN MAMMOGRAM FOR MALIGNANT NE 12/29/2016 TORIE ARMSTRONG DO Ot M81.8 OTHER OSTEOPOROSIS WITHOUT CURRENT PATHO 12/29/2016 TANIYA MAGUI KOTHARI K Ot K59.00 CONSTIPATION, UNSPECIFIED 12/29/2016 TORIE ARMSTRONG DO Ot I65.23 OCCLUSION AND [...] 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 02/28/2017 TANIYA DO, MAGUI K Ot E03.9 HYPOTHYROIDISM, UNSPECIFIED 02/28/2017 TANIYA DO, MAGUI K Ot I10 ESSENTIAL (PRIMARY) HYPERTENSION 02/28/2017 TANIYA DO, MAGUI K Ot K59.00 CONSTIPATION, UNSPECIFIED 02/28/2017 TANIYA DO, MAGUI K Ot Z79.82 SHOT POLISHER AND INSPECTOR (CURRENT) USE OF ASPIRIN 02/28/2017 TANIYA DO, MAGUI K Ot Z90.710 ACQUIRED ABSENCE OF BOTH CERVIX AND UTER 02/28/2017 TANIYA DO, MAGUI K Ot Z90.89 ACQUIRED ABSENCE OF OTHER ORGANS 02/28/2017 TANIYA DO, MAGUI K Ot 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 03/02/2017 TANIYA DO, MAGUI K Ot E03.9 HYPOTHYROIDISM, UNSPECIFIED 03/02/2017 TANIYA DO, MAGUI K Ot I10 ESSENTIAL (PRIMARY) HYPERTENSION 03/02/2017 TANIYA DO, MAGUI K Ot K59.00 CONSTIPATION, UNSPECIFIED 03/02/2017 TANIYA DO, MAGUI K Ot Z79.82 SHOT POLISHER AND INSPECTOR (CURRENT) USE OF ASPIRIN 03/02/2017 TANIYA DO, MAGUI K Ot Z90.710 ACQUIRED ABSENCE OF BOTH CERVIX AND UTER 03/02/2017 TANIYA DO, MAGUI K Ot Z90.89 ACQUIRED ABSENCE OF OTHER ORGANS 03/02/2017 TANIYA DO, MAGUI K Ot 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 03/06/2017 ARMSTRONG DO, TORIE Ot E03.9 HYPOTHYROIDISM, UNSPECIFIED 03/06/2017 ARMSTRONG DO, TORIE Ot E11.9 TYPE 2 DIABETES MELLITUS WITHOUT COMPLIC 03/06/2017 ARMSTRONG DO, TORIE Ot E78.5 HYPERLIPIDEMIA, UNSPECIFIED 03/06/2017 ARMSTRONG DO, TORIE Ot F41.9 ANXIETY DISORDER, UNSPECIFIED 03/06/2017 ARMSTRONG DO, TORIE Ot I10 ESSENTIAL (PRIMARY) HYPERTENSION 03/06/2017 ARMSTRONG DO, TORIE Ot K57.30 DVRTCLOS OF LG INT W/O PERFORATION OR AB 03/06/2017 ARMSTRONG DO, TORIE Ot K58.1 IRRITABLE BOWEL SYNDROME WITH CONSTIPATI 03/06/2017 ARMSTRONG DO, TORIE Ot K62.89 OTHER SPECIFIED DISEASES OF ANUS AND REC 03/06/2017 ARMSTRONG DO, TORIE Ot M54.5 LOW BACK PAIN 03/06/2017 NATHANIEL DO TORIE Ot Z79.82 SHOT POLISHER AND INSPECTOR (CURRENT) USE OF ASPIRIN 03/06/2017 ARMSTRONG DO, TORIE Ot Z79.89 9 OTHER LONG-TERM (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 THERAPY 03/18/2017 ARMSTRONG DO, TORIE Ot E03.9 HYPOTHYROIDISM, UNSPECIFIED 03/18/2017 ARMSTRONG DO, TORIE Ot E11.9 TYPE 2 DIABETES MELLITUS WITHOUT COMPLIC 03/18/2017 ARMSTRONG DO, TORIE Ot E78.5 HYPERLIPIDEMIA, UNSPECIFIED 03/18/2017 ARMSTRONG DO, TORIE Ot F41.9 ANXIETY DISORDER, UNSPECIFIED 03/18/2017 ARMSTRONG DO, TORIE Ot I10 ESSENTIAL (PRIMARY) HYPERTENSION 03/18/2017 ARMSTRONG DO, TORIE Ot K57.30 DVRTCLOS OF LG INT W/O PERFORATION OR AB 03/18/2017 ARMSTRONG DO, TORIE Ot K58.1 IRRITABLE BOWEL SYNDROME WITH CONSTIPATI 03/18/2017 ARMSTRONG DO, TORIE Ot K62.89 OTHER SPECIFIED DISEASES OF ANUS AND REC 03/18/2017 ARMSTRONG DO TORIE Ot M54.5 LOW BACK PAIN 03/18/2017 NATHANIEL DO TORIE Ot Z79.82 LONG-TERM (CURRENT) USE OF ASPIRIN 03/18/2017 ARMSTRONG DO, TORIE Ot Z79.89 9 OTHER LONG-TERM (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 THERAPY 03/20/2017 ARMSTRONG DO, TORIE Ot E03.9 HYPOTHYROIDISM, UNSPECIFIED 03/20/2017 ARMSTRONG DO, TORIE Ot E11.9 TYPE 2 DIABETES MELLITUS WITHOUT COMPLIC 03/20/2017 ARMSTRONG DO, TORIE Ot E78.5 HYPERLIPIDEMIA, UNSPECIFIED 03/20/2017 ARMSTRONG DO, TORIE Ot F41.9 ANXIETY DISORDER, UNSPECIFIED 03/20/2017 ARMSTRONG DO, TORIE Ot I10 ESSENTIAL (PRIMARY) HYPERTENSION 03/20/2017 TORIE ARMSTRONG DO Ot K57.30 DVRTCLOS OF LG INT W/O PERFORATION OR AB 03/20/2017 TORIE ARMSTRONG DO Ot K58.1 IRRITABLE BOWEL SYNDROME WITH CONSTIPATI 03/20/2017 TORIE ARMSTRONG DO Ot K62.89 OTHER SPECIFIED DISEASES OF ANUS AND REC 03/20/2017 TORIE ARMSTRONG DO Ot M54.5 LOW BACK PAIN 03/20/2017 TORIE ARMSTRONG DO Ot Z79.82 SHOT POLISHER AND INSPECTOR (CURRENT) USE OF ASPIRIN 03/20/2017 TORIE ARMSTRONG DO Ot Z79.89 9 OTHER SHOT POLISHER AND INSPECTOR (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 THERAPY 04/02/2017 TORIE ARMSTRONG DO Ot M51.36 OTHER INTERVERTEBRAL DISC DEGENERATION, 04/02/2017 TORIE ARMSTRONG DO Ot S32.01 0G WEDGE COMPRSN FX FIRST LUM VERT, SUBS FO 04/10/2017 TORIE ARMSTRONG DO Ot M43.8X 6 OTHER SPECIFIED DEFORMING DORSOPATHIES, 04/10/2017 KATERIN ARMSTRONG DOI Ot 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 04/10/2017 KATERIN ARMSTRONG DOI Ot M53.3 SACROCOCCYGEAL DISORDERS, NOT ELSEWHERE 04/10/2017 KATERIN ARMSTRONG DOI Ot X58.XX XA EXPOSURE TO OTHER SPECIFIED FACTORS, INI 04/15/2017 TORIE ARMSTRONG DO Ot M43.8X 6 OTHER SPECIFIED DEFORMING DORSOPATHIES, 04/15/2017 NATHANIEL KOTHARI TORIE Ot 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 04/15/2017 KATERIN ARMSTRONG DOI Ot M53.3 SACROCOCCYGEAL DISORDERS, NOT ELSEWHERE 04/15/2017 NATHANIEL KOTHARI TORIE Ot X58.XX XA EXPOSURE TO OTHER SPECIFIED FACTORS, INI 04/21/2017 TORIE ARMSTRONG DO Ot M51.36 OTHER INTERVERTEBRAL DISC DEGENERATION, 04/21/2017 TORIE ARMSTRONG DO Ot S32.01 0G WEDGE COMPRSN FX FIRST LUM VERT, SUBS FO 04/23/2017 KATERIN ARMSTRONG DOI Ot M51.36 OTHER INTERVERTEBRAL DISC DEGENERATION, 04/23/2017 TORIE ARMSTRONG DO Ot S32.01 0G WEDGE COMPRSN FX FIRST LUM VERT, SUBS FO 04/28/2017 TORIE ARMSTRONG DO Ot M85.88 OTH DISRD OF BONE DENSITY AND STRUCTURE, 06/24/2017 KATERIN ARMSTRONG DOI Ot Z12.31 ENCNTR SCREEN MAMMOGRAM FOR MALIGNANT NE 07/15/2017 NATHANIEL KOTHARI TORIE Ot Z12.31 ENCNTR SCREEN MAMMOGRAM FOR MALIGNANT NE 09/25/2017 NATHANIEL KOTHARI TORIE Ot I51.7 CARDIOMEGALY 09/25/2017 NATHANIEL KOTHARI TORIE Ot R05 COUGH 10/01/2017 ARMSTRONG DO, TORIE Ot I51.7 CARDIOMEGALY 10/01/2017 ARMSTRONG DO, TORIE Ot R05 COUGH 06/24/2018 KATERIN ARMSTRONG DOI Ot Z12.31 ENCNTR SCREEN MAMMOGRAM FOR MALIGNANT NE 06/30/2018 NATHANIEL KOTHARI TORIE Ot Z12.31 ENCNTR SCREEN MAMMOGRAM FOR MALIGNANT NE 06/30/2018 NATHANIEL KOTHARI TORIE Ot Z12.31 ENCNTR SCREEN MAMMOGRAM FOR MALIGNANT NE 07/20/2018 KATERIN ARMSTRONG DOI Ot Z12.31 ENCNTR SCREEN MAMMOGRAM FOR MALIGNANT NE 10/31/2018 NATHANIEL KOTHARI TORIE Ot V76.12 OTH SCREEN MAMMO-MALIGN NEOPLASM OF DELVIN 10/31/2018 NATHANIEL KOTHARI TORIE Ot 729.5 PAIN IN LIMB 10/31/2018 NATHANIEL KOTHARI TORIE Ot 782.3 EDEMA 10/31/2018 NATHANIEL KOTHARI TORIE Ot 793.99 OTH NOSP (ABN) FINDINGS RADIOLOGICAL O 10/31/2018 NATHANIEL KOTHARI TORIE Ot V76.12 OTH SCREEN MAMMO-MALIGN NEOPLASM OF DELVIN 10/31/2018 NATHANIEL KOTHARI TORIE Ot Z12.31 ENCNTR SCREEN MAMMOGRAM FOR MALIGNANT NE 10/31/2018 NATHANIEL KOTHARI TORIE Ot M81.8 OTHER OSTEOPOROSIS WITHOUT CURRENT PATHO 10/31/2018 TANIYA , MAGUI K Ot K59.00 CONSTIPATION, UNSPECIFIED 10/31/2018 NATHANIEL KOTHARI TORIE Ot 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 10/31/2018 NATHANIEL KOTHARI TORIE Ot Z12.31 ENCNTR SCREEN MAMMOGRAM FOR MALIGNANT NE 10/31/2018 NATHANIEL KOTHARI TORIE Ot 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 10/31/2018 TORIE ARMSTRONG DO Ot M43.8X 6 OTHER SPECIFIED DEFORMING DORSOPATHIES, 10/31/2018 TORIE ARMSTRONG DO Ot 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 10/31/2018 NATHANIEL KOTHARI TORIE Ot M53.3 SACROCOCCYGEAL DISORDERS, NOT ELSEWHERE 10/31/2018 TORIE ARMSTRONG DO Ot X58.XX XA EXPOSURE TO OTHER SPECIFIED FACTORS, INI 10/31/2018 TORIE ARMSTRONG DO Ot M51.36 OTHER INTERVERTEBRAL DISC DEGENERATION, 10/31/2018 TORIE ARMSTRONG DO Ot S32.01 0G WEDGE COMPRSN FX FIRST LUM VERT, SUBS FO 10/31/2018 TORIE ARMSTRONG DO Ot M85.88 OTH DISRD OF BONE DENSITY AND STRUCTURE, 10/31/2018 TORIE ARMSTRONG DO Ot Z12.31 ENCNTR SCREEN MAMMOGRAM FOR MALIGNANT NE 10/31/2018 TORIE ARMSTRONG DO Ot I51.7 CARDIOMEGALY 10/31/2018 TORIE ARMSTRONG DO Ot R05 COUGH 10/31/2018 TORIE ARMSTRONG DO Ot Z12.31 ENCNTR SCREEN MAMMOGRAM FOR MALIGNANT NE 10/31/2018 ÁNGEL RUCKER Ot E03.9 HYPOTHYROIDISM, UNSPECIFIED 10/31/2018 ÁNGEL RUCKER Ot E78.00 PURE HYPERCHOLESTEROLEMIA, UNSPECIFIED 10/31/2018 ÁNGEL RUCKER Ot I 10 ESSENTIAL (PRIMARY) HYPERTENSION 10/31/2018 ÁNGEL RUCKER Ot K58.9 IRRITABLE BOWEL SYNDROME WITHOUT DIARRHE 10/31/2018 ÁNGEL RUCKER Ot S00.03XA CONTUSION OF SCALP, INITIAL ENCOUNTER 10/31/2018 ÁNGEL RUCKER Ot S00.83XA CONTUSION OF OTHER PART OF HEAD, INITIAL 10/31/2018 ÁNGEL RUCKER Ot 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 10/31/2018 ÁNGEL RCUKER Ot Z79.82 LONG-TERM (CURRENT) USE OF ASPIRIN 10/31/2018 ÁNGEL RUCKER Ot Z87.19 PERSONAL HISTORY OF OTHER DISEASES OF TH 10/31/2018 ÁNGEL RUCKER Ot Z90.710 ACQUIRED ABSENCE OF BOTH CERVIX AND UTER 10/31/2018 ÁNGEL RUCKER Ot Z90.89 ACQUIRED ABSENCE OF OTHER ORGANS 11/03/2018 ÁNGEL RUCKER Ot E03.9 HYPOTHYROIDISM, UNSPECIFIED 11/03/2018 ÁNGEL RUCKER Ot E78.00 PURE HYPERCHOLESTEROLEMIA, UNSPECIFIED 11/03/2018 ÁNGEL RUCKER Ot I 10 ESSENTIAL (PRIMARY) HYPERTENSION 11/03/2018 ÁNGEL RUCKER Ot K58.9 IRRITABLE BOWEL SYNDROME WITHOUT DIARRHE 11/03/2018 ÁNGEL RUCKER Ot S00.03XA CONTUSION OF SCALP, INITIAL ENCOUNTER 11/03/2018 ÁNGEL RUCKER Ot S00.83XA CONTUSION OF OTHER PART OF HEAD, INITIAL 11/03/2018 ÁNGEL RUCKER Ot 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 11/03/2018 ÁNGEL RUCKER Ot Z79.82 SHOT POLISHER AND INSPECTOR (CURRENT) USE OF ASPIRIN 11/03/2018 ÁNGEL RUCKER Ot Z87.19 PERSONAL HISTORY OF OTHER DISEASES OF TH 11/03/2018 ÁNGEL RUCKER Ot Z90.710 ACQUIRED ABSENCE OF BOTH CERVIX AND UTER 11/03/2018 ÁNGEL RUCKER Ot Z90.89 ACQUIRED ABSENCE OF OTHER ORGANS Procedures Code Description Performed By Per formed On 53.61 OTHE R OPEN INCISIONAL HERNIA REPAIR WITH 09/22/2009 Results Test Result Range Complete blood count (CBC) with automate d white blood cell (WBC) differential - 03/05/17 14:20 Blood leukocytes automated count (number/volume) 7.3 10*3/uL 4.3-11.0 Blood erythrocytes automated count (number/volume) 4.11 10*6/uL 4.35-5.85 Venous blood hemoglobin measurement (mass/volume) 12.9 g/dL 11.5-16.0 Blood hematocrit (volume fraction) 38 % 35-52 Automated erythrocyte mean corpuscular volume 93 [ foz_us] 80-99 Automated erythrocyte mean corpuscular h emoglobin (mass per erythrocyte) 31 pg 25-34 Automated erythrocyte mean corpuscular h emoglobin concentration measurement (mass/volume) 34 g/dL 32-36 Automated erythrocyte distribution width ratio 13. 0 % 10.0- 14.5 Automated blood platelet count (count/volume) 216 10*3/uL 130-400 Automated blood platelet mean volume measurement 8.8 [foz_us] 7.4-10.4 Automated blood neutrophils/100 leukocytes 72 % 42-75 Automated blood lymphocytes/100 leukocytes 13 % 12-44 Blood monocytes/100 leukocytes 14 % 0-12 Automated blood eosinophils/100 leukocytes 1 % 0-10 Automated blood basophils/100 leukocytes 0 % 0-10 Blood neutrophils automated count (number/volume) 5.2 10*3 1.8-7.8 Blood lymphocytes automated count (number/volume) 1.0 10*3 1.0-4.0 Blood monocytes automated count (number/volume) 1. 0 10*3 0.0-1.0 Automated eosinophil count 0.1 10*3/uL 0 .0-0.3 Automated blood basophil count (count/volume) 0.0 10*3/uL 0.0-0.1 Comprehensive metabolic panel - 03/05/17 14:20 Serum or plasma sodium measurement (moles/volume) 138 mmol/L 135-145 Serum or plasma potassium measurement (moles/volume) 4.1 mmol/L 3.6-5.0 Serum or plasma chloride measurement (moles/volume) 102 mmol/L 98-107 Carbon dioxide 29 mmol/L 21-32 Serum or plasma anion gap determination (moles/volume) 7 mmol/L 5-14 Serum or plasma urea nitrogen measurement (mass/volume ) 14 mg/dL 7-18 Serum or plasma creatinine measurement (mass/volume) 0.82 mg/dL 0.60-1.30 Serum or plasma urea nitrogen/creatinine mass ratio 17 NRG Serum or plasma creatinine measurement w ith calculation of estimated glomerular filtration rate > NRG Serum or plasma glucose measurement (mass/volume) 151 mg/dL 70-105 Serum or plasma calcium measurement (mass/volume) 9.0 mg/dL 8.5-10.1 Serum or plasma total bilirubin measurement (mass/volu me) 0.7 mg/dL 0.1-1.0 Serum or plasma alkaline phosphatase cliff surement (enzymatic activity/volume) 51 U/L 40-136 Serum or plasma aspartate aminotransfera se measurement (enzymatic activity/volume) 18 U/L 5-34 Serum or plasma alanine aminotransferase measurement (enzymatic activity/volume) 20 U/L 0-55 Serum or plasma protein measurement (mass/volume) 6.8 g/dL 6.4-8.2 Serum or plasma albumin measurement (mass/volume) 3.7 g/dL 3.2-4.5 Methicillin resistant Staphylococcus aur eus (MRSA) screening culture - 03/05/17 17:35 Methicillin resistant Staphylococcus aureus (MRSA) scr eening culture NEG NRG Complete blood count (CBC) with automate d white blood cell (WBC) differential - 03/06/17 05:08 Blood leukocytes automated count (number/volume) 5.3 10*3/uL 4.3-11.0 Blood erythrocytes automated count (number/volume) 3.88 10*6/uL 4.35-5.85 Venous blood hemoglobin measurement (mass/volume) 12.2 g/dL 11.5-16.0 Blood hematocrit (volume fraction) 36 % 35-52 Automated erythrocyte mean corpuscular volume 93 [ foz_us] 80-99 Automated erythrocyte mean corpuscular h emoglobin (mass per erythrocyte) 31 pg 25-34 Automated erythrocyte mean corpuscular h emoglobin concentration measurement (mass/volume) 34 g/dL 32-36 Automated erythrocyte distribution width ratio 13. 0 % 10.0- 14.5 Automated blood platelet count (count/volume) 194 10*3/uL 130-400 Automated blood platelet mean volume measurement 9.1 [foz_us] 7.4-10.4 Automated blood neutrophils/100 leukocytes 69 % 42-75 Automated blood lymphocytes/100 leukocytes 16 % 12-44 Blood monocytes/100 leukocytes 13 % 0-12 Automated blood eosinophils/100 leukocytes 3 % 0-10 Automated blood basophils/100 leukocytes 0 % 0-10 Blood neutrophils automated count (number/volume) 3.6 10*3 1.8-7.8 Blood lymphocytes automated count (number/volume) 0.9 10*3 1.0-4.0 Blood monocytes automated count (number/volume) 0. 7 10*3 0.0-1.0 Automated eosinophil count 0.1 10*3/uL 0 .0-0.3 Automated blood basophil count (count/volume) 0.0 10*3/uL 0.0-0.1 Comprehensive metabolic panel - 03/06/17 05:08 Serum or plasma sodium measurement (moles/volume) 144 mmol/L 135-145 Serum or plasma potassium measurement (moles/volume) 3.7 mmol/L 3.6-5.0 Serum or plasma chloride measurement (moles/volume) 108 mmol/L 98-107 Carbon dioxide 25 mmol/L 21-32 Serum or plasma anion gap determination (moles/volume) 11 mmol/L 5-14 Serum or plasma urea nitrogen measurement (mass/volume ) 10 mg/dL 7-18 Serum or plasma creatinine measurement (mass/volume) 0.67 mg/dL 0.60-1.30 Serum or plasma urea nitrogen/creatinine mass ratio 15 NRG Serum or plasma creatinine measurement w ith calculation of estimated glomerular filtration rate > NRG Serum or plasma glucose measurement (mass/volume) 102 mg/dL 70-105 Serum or plasma calcium measurement (mass/volume) 8.3 mg/dL 8.5-10.1 Serum or plasma total bilirubin measurement (mass/volu me) 0.8 mg/dL 0.1-1.0 Serum or plasma alkaline phosphatase cliff surement (enzymatic activity/volume) 49 U/L 40-136 Serum or plasma aspartate aminotransfera se measurement (enzymatic activity/volume) 16 U/L 5-34 Serum or plasma alanine aminotransferase measurement (enzymatic activity/volume) 19 U/L 0-55 Serum or plasma protein measurement (mass/volume) 5.9 g/dL 6.4-8.2 Serum or plasma albumin measurement (mass/volume) 3.2 g/dL 3.2-4.5 Complete blood count (CBC) with automate d white blood cell (WBC) differential - 10/31/18 14:43 Blood leukocytes automated count (number/volume) 6.6 10*3/uL 4.3-11.0 Blood erythrocytes automated count (number/volume) 4.32 10*6/uL 4.35-5.85 Venous blood hemoglobin measurement (mass/volume) 13.4 g/dL 11.5-16.0 Blood hematocrit (volume fraction) 40 % 35-52 Automated erythrocyte mean corpuscular volume 93 [ foz_us] 80-99 Automated erythrocyte mean corpuscular h emoglobin (mass per erythrocyte) 31 pg 25-34 Automated erythrocyte mean corpuscular h emoglobin concentration measurement (mass/volume) 34 g/dL 32-36 Automated erythrocyte distribution width ratio 12. 6 % 10.0- 14.5 Automated blood platelet count (count/volume) 228 10*3/uL 130-400 Automated blood platelet mean volume measurement 10.2 [foz_us] 7.4-10.4 Automated blood neutrophils/100 leukocytes 51 % 42-75 Automated blood lymphocytes/100 leukocytes 35 % 12-44 Blood monocytes/100 leukocytes 12 % 0-12 Automated blood eosinophils/100 leukocytes 2 % 0-10 Automated blood basophils/100 leukocytes 0 % 0-10 Blood neutrophils automated count (number/volume) 3.4 10*3 1.8-7.8 Blood lymphocytes automated count (number/volume) 2.3 10*3 1.0-4.0 Blood monocytes automated count (number/volume) 0. 8 10*3 0.0-1.0 Automated eosinophil count 0.1 10*3/uL 0 .0-0.3 Automated blood basophil count (count/volume) 0.0 10*3/uL 0.0-0.1 PT panel in platelet poor plasma by coag ulation assay - 10/31/18 14:43 Prothrombin time (PT) in platelet poor plasma by coagu lation assay 13.0 s 12.2-14.7 INR in platelet poor plasma or blood by coagulation as say 0.9 0.8-1.4 Activated partial thromboplastin time (a PTT) in platelet poor plasma bycoagulation assay - 10/31/18 14:43 Activated partial thromboplastin time (a PTT) in platelet poor plasma bycoagulation assay 29 s 24-35 Comprehensive metabolic panel - 10/31/18 14:43 Serum or plasma sodium measurement (moles/volume) 138 mmol/L 135-145 Serum or plasma potassium measurement (moles/volume) 4.4 mmol/L 3.6-5.0 Serum or plasma chloride measurement (moles/volume) 105 mmol/L 98-107 Carbon dioxide 20 mmol/L 21-32 Serum or plasma anion gap determination (moles/volume) 13 mmol/L 5-14 Serum or plasma urea nitrogen measurement (mass/volume ) 18 mg/dL 7-18 Serum or plasma creatinine measurement (mass/volume) 0.97 mg/dL 0.60-1.30 Serum or plasma urea nitrogen/creatinine mass ratio 19 NRG Serum or plasma creatinine measurement w ith calculation of estimated glomerular filtration rate 54 NRG Serum or plasma glucose measurement (mass/volume) 113 mg/dL 70-105 Serum or plasma calcium measurement (mass/volume) 9.7 mg/dL 8.5-10.1 Serum or plasma total bilirubin measurement (mass/volu me) 0.8 mg/dL 0.1-1.0 Serum or plasma alkaline phosphatase cliff surement (enzymatic activity/volume) 61 U/L 40-136 Serum or plasma aspartate aminotransfera se measurement (enzymatic activity/volume) 24 U/L 5-34 Serum or plasma alanine aminotransferase measurement (enzymatic activity/volume) 21 U/L 0-55 Serum or plasma protein measurement (mass/volume) 7.4 g/dL 6.4-8.2 Serum or plasma albumin measurement (mass/volume) 4.0 g/dL 3.2-4.5 CALCIUM CORRECTED 9.7 mg/dL 8.5-10.1 Serum or plasma troponin i.cardiac measu rement (mass/volume) - 10/31/18 14:43 Serum or plasma troponin i.cardiac measurement (mass/v olume) < ng/mL <0.028 THYROID STIMULATING HORMONE - 10/31/18 1 4:43 THYROID STIMULATING HORMONE 0.45 u[iU]/mL 0.35-4.94 Encounters ACCT No. Visit Date/Time Discharge Status Pt. Type Provider Facility Loc./Unit Complaint [id number] 10/31/2018 14:26:00 019 18:48:00 DIS Emergency ÁNGEL RUCKER [facility] ER FALL,HIT HEAD, BUMP ON FOREHEAD [id number] 06/29/2018 08:35:00 019 23:59:59 CLS Outpatient ARMSTRONG DO, TORIE [facility] RAD SCREENING [id number] 09/03/2017 13:35:00 018 23:59:59 CLS Outpatient ARMSTRONG DO, TORIE Via [facility] RAD PNEMONIA [id number] 06/23/2017 08:30:00 018 23:59:59 CLS Outpatient ARMSTRONG DO, TORIE Via [facility] RAD SCREENING [id number] 04/02/2017 11:31:00 018 23:59:59 CLS Outpatient ARMSTRONG DO, TORIE Via [facility] RAD 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 F [id number] 03/27/2017 10:35:00 018 23:59:59 CLS Outpatient ARMSTRONG DO, TORIE Via [facility] RAD COMPRESSION FRACTURE OF L1 LUMBAR VERTEBRA W/ MIKE [id number] 03/20/2017 08:47:00 017 23:59:59 CLS Outpatient ARMSTRONG DO, TORIE Via [facility] RAD S39.012A M54.5 [id number] 03/05/2017 13:45:00 017 11:25:00 DIS Outpatient ARMSTRONG DO, TORIE Via [facility] SDC ABDOMINAL PAIN [id number] 02/28/2017 03:19:00 017 06:18:00 DIS Emergency MAGUI MONAHAN DO [facility] ER CONSTIPATED [id number] 12/30/2016 13:31:00 017 23:59:59 CLS Outpatient ARMSTRONG DO, TORIE [facility] RAD I65.29 [id number] 06/19/2016 13:07:00 017 23:59:59 CLS Outpatient ARMSTRONG DO, TORIE Via [facility] RAD SCREENING,I65.29,I65.23 [id number] 05/01/2016 05:43:00 017 23:59:59 CLS Outpatient TANIYA KOTHARIMAGUI V ia [facility] 4THo CONSTIPATION [id number] 05/01/2016 03:12:00 017 05:48:00 DIS Emergency TANIYA KOTHARIMAGUI a [facility] ER CONSTIPATION [id number] 08/13/2015 12:09:00 016 23:59:59 CLS Outpatient ARMSTRONG DO, TORIE Via [facility] RAD OTHER OSTEOPOROSIS W/O FRACTURE [id number] 06/18/2015 09:22:00 016 23:59:59 CLS Outpatient ARMSTRONG DO, TORIE Via [facility] RAD SCREENING [id number] 06/14/2014 08:27:00 015 23:59:59 CLS Outpatient ARMSTRONG DO, TORIE Via [facility] RAD SCREENING [id number] 09/06/2013 10:37:00 014 23:59:59 CLS Outpatient ARMSTRONG DO, TORIE Via [facility] RAD RT LEG PAIN,EDEMA [id number] 06/09/2013 08:35:00 014 23:59:59 CLS Outpatient ARMSTRONG DO, TORIE Via [facility] RAD SCREENING [id number] 06/08/2012 08:35:00 Document Registration [id number] 04/09/2012 11:02:00 Document Registration [id number] 02/17/2012 07:22:00 Document Registration [id number] 05/22/2011 10:23:00 Document Registration [id number] 08/13/2010 13:42:00 Document Registration [id number] 05/14/2010 09:21:00 Document Registration [id number] 09/21/2009 16:24:00 Document Registration
--- NOTE | 2019-10-23 06:46 | ED GI ---
General Stated Complaint: CONSTIPATION Source of Information: Patient Exam Limitations: No Limitations History of Present Illness Date Seen by Provider: Oct 23, 2019 Time Seen by Provider: 06:41 Initial Comments 89-year-old female presents with constipation. Reports she's had very little stool for the last at least 3 days. She normally takes MiraLAX daily try one extra dose. Patient reports that she has a history of issues with constipation. She is passing gas. She denies any nausea, vomiting, abdominal pain, fevers chills or urinary symptoms. Patient has no other complaints at this Allergies and Home Medications Allergies Coded Allergies: No Known Drug Allergies (Verified , 02/24/08) Home Medications Amlodipine Besylate 5 Mg Tablet, 5 MG PO DAILY, (Reported) Aspirin 81 Mg Tablet.dr, 81 MG PO DAILY, (Reported) Calcium Carbonate/Vitamin D3 1 Each Tablet, 1 TAB PO DAILY, (Reported) Cyanocobalamin/FA/Pyridoxine 1 Each Tablet, 1 TAB PO DAILY, (Reported) Levothyroxine Sodium 75 Mcg Tablet, 75 MCG PO DAILY, (Reported) Losartan Potassium 50 Mg Tablet, 50 MG PO DAILY, (Reported) Nunn-3 Fatty Acids/Fish Oil 1 Each Capsule, 1,000 MG PO DAILY, (Reported) Polyethylene Glycol 3350 17 Gm Powd.pack, 17 GM PO Q12H Prescribed by: TORIE ARMSTRONG on 03/06/17 1103 Patient Home Medication List Home Medication List Reviewed: Yes Review of Systems Review of Systems Constitutional: No chills, No fever Respiratory: Denies Cough, Denies Shortness of Air Cardiovascular: No Symptoms Reported Gastrointestinal: Constipated; Denies Nausea, Denies Vomiting Genitourinary: No Symptoms Reported Skin: no symptoms reported Psychiatric/Neurological: No Symptoms Reported Endocrine: No Symptoms Reported Past Ubopesz-Vzgvzt-Ombvnx Hx Past Med/Social Hx: Reviewed Nursing Past Med/Soc Hx Patient Social History 2nd Hand Smoke Exposure: No Recent Foreign Travel: No Contact w/Someone Who Travel: No Recent Hopitalizations: No Immunizations Up To Date Date of Pneumonia Vaccine: Jan 01, 2017 Date of Influenza Vaccine: Jan 01, 2017 Past Medical History Surgeries: Yes (HYSTERECTOMY) Bladder Surgery, Gallbladder, Hysterectomy, Joint Replacement, Orthopedic, Tonsillectomy Respiratory: No Cardiac: Yes High Cholesterol, Hypertension Neurological: No Reproductive Disorders: No Sexually Transmitted Disease: No Genitourinary: No Gastrointestinal: Yes Chronic Constipation, Irritable Bowel Musculoskeletal: Yes Arthritis Endocrine: Yes Hypothyroidsim HEENT: Yes Cataract Hearing Impairment: Denies Cancer: No Psychosocial: No Integumentary: No Blood Disorders: No Family Medical History No Pertinent Family Hx Physical Exam Vital Signs Vital Signs - First Documented 10/23/19 06:39 Pulse 84 Resp 16 B/P (MAP) 155/91 (112) Pulse Ox 98 O2 Delivery Room Air Capillary Refill : Height/Weight/BMI Height: 4'10.00" Weight: 127lbs. 7.0oz. 57.114344tg; 26.2 BMI Method:Stated General Appearance: WD/WN, no apparent distress Respiratory: chest non-tender, lungs clear Cardiovascular: normal peripheral pulses, regular rate, rhythm Gastrointestinal: non tender, soft Extremities: normal range of motion Neurologic/Psychiatric: circle edger II-XII nml as tested, alert, normal mood/affect, oriented x 3 Skin: normal color, warm/dry Progress/Results/Core Measures Results/Orders My Orders Orders - ELIOT FALLON DO Abdomen, Flat & Upright/Decub (10/23/19 06:46) Vital Signs/I&O 10/23/19 06:39 Pulse 84 Resp 16 B/P (MAP) 155/91 (112) Pulse Ox 98 O2 Delivery Room Air Diagnostic Imaging Diagonstic Imaging: Xray Plain Films/CT/US/NM/MRI: abdomen Comments [facility], [place] NAME: AMIE CHEN [facility] REC#: [id number] PT STATUS: REG ER : 1930 PHYSICIAN: ELIOT FALLON DO ADMIT DATE: 10/23/19/ER Draft Date of Exam:10/23/19 ABDOMEN, FLAT & UPRIGHT/DECUB INDICATION: Abdominal pain and constipation. FINDINGS: Bowel gas pattern appears nonobstructed. There appear to be moderate stool within the left colon and region of the sigmoid. There is no small bowel dilation. No findings to suggest free air. There are surgical clips from cholecystectomy. There has been prior T12 kyphoplasty. IMPRESSION: 1. Moderate stool within the left colon and sigmoid colon. There are no obstructive features evident Reviewed: Reviewed by Me, Reviewed/Discussed Departure Impression Primary Impression: Constipation Qualified Codes: K59.00 - Constipation, unspecified Disposition: HOME, SELF-CARE Condition: Stable Departure-Patient Inst. Referrals: TORIE ARMSTRONG DO (PCP/Family) Primary Care Physician Patient Instructions: Constipation, Adult (DC) Add. Discharge Instructions: Increased MiraLAX to 3-4 times daily until soft daily stool then take daily or twice daily as needed for soft daily stool Be sure to drink plenty of fluids ELIOT FALLON DO Oct 23, 2019 06:46
--- NOTE | 2019-10-23 07:25 | Diagnostic Imaging Report ---
INDICATION: Abdominal pain and constipation. FINDINGS: Bowel gas pattern appears nonobstructed. There appear to be moderate stool within the left colon and region of the sigmoid. There is no small bowel dilation. No findings to suggest free air. There are surgical clips from cholecystectomy. There has been prior T12 kyphoplasty. IMPRESSION: 1. Moderate stool within the left colon and sigmoid colon. There are no obstructive features evident. Dictated by: Dictated on workstation # [id number]
[2019-10-23 08:02] VITALS: BP 122/92
== END 2019-10-23 08:02 | disposition home or self-care (01) ==
LOC: EDUNIT# 06:27 → ER 06:30
DX: K58.1 Irritable bowel syndrome with constipation (principal); I10 Essential (primary) hypertension; E78.00 Pure hypercholesterolemia, unspecified; M19.90 Unspecified osteoarthritis, unspecified site; E03.9 Hypothyroidism, unspecified; Z79.890 Hormone replacement therapy; Z79.899 Other long term (current) drug therapy; Z96.60 Presence of unspecified orthopedic joint implant
CPT/HCPCS: 74019